=== PATIENT | male | born 1985 | race Asian ===

== ENCOUNTER 2020-04-22 17:14 | Inpatient (IN) | payer OTHER ==
[2020-04-22 21:21] VITALS: BMI 29.8
--- NOTE | 2020-04-22 22:16 | HP ---
COWS - Scale Resting Pulse: 0= [place] 80 or Below Sweatin=Flushed/Facial Moisture Restless Observation: 1= Difficult to Sit Still Pupil Size: 1= Pupils >than Normal Bone or Joint Aches: 2= Severe Diffuse Aches Runny Nose/ Eye Tearin= Nasal Congestion GI Upset > 30mins: 1= Stomach Cramp Tremor Observation: 2= Slight Tremor Visible Yawning Observation: 1= 1-2x During Session Anxiety or Irritability: 4=Extreme Anxiety Goose Flesh Skin: 0=Smooth Skin COWS Score: 15 CIWA Score Nausea/Vomitin Muscle Tremors: 4-Moderate,w/Arms Extend Anxiety: 4-Mod. Anxious/Guarded Agitation: 4-Moderately Restless Paroxysmal Sweats: 2 Orientation: 0-Oriented Tacttile Disturbances: 0-None Auditory Disturbances: 0-None Visual Disturbances: 0-None Headache: 0-None Present CIWA-Ar Total Score: 16 - Admission Criteria OASAS Guidelines: Admission for Medically Managed Detox: Requires at least one of the followin. CIWA greater than 12 2. Seizures within the past 24 hours 3. Delirium tremens within the past 24 hours 4. Hallucinations within the past 24 hours 5. Acute intervention needed for co occurring medical disorder 6. Acute intervention needed for co occurring psychiatric disorder 7. Severe withdrawal that cannot be handled at a lower level of care (continued vomiting, continued diarrhea, abnormal vital signs) requiring intravenous medication and/or fluids 8. Admitting History and Physical - Smoking History Smoking history: Current every day smoker Have you smoked in the past 12 months: Yes Aproximately how many cigarettes per day: 10 Admission ROS [facility] Chief Complaint: Heroin and alcohol withdrawal symptoms Allergies/Adverse Reactions: Allergies Allergy/AdvReac Type Severity Reaction Status Date / Time No Known Allergies Allergy Verified 04/22/20 21:13 History of Present Illness: 34 years old male with 8 years of heroin dependence and 18 years of alcohol dependence is seeking admission to detox. He drinks 1 pint of vodka and 1 six pack beer daily and uses 10 bags of heroin intravenously daily. This is his first admission to [facility], his last detoxification admission was at [facility] and he reports insignificant period of sobriety. He denies medical history and reports Psych. history of PTSD and anxiety. 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 He reports that he overdosed 2 months ago. He is unemployed, lives with his parents and denies any legal issues. Exam Limitations: No Limitations - Ebola screening Have you traveled outside of the country in the last 21 days: No Have you had contact with anyone from an Ebola affected area: No Have you been sick,other than usual withdrawal symptoms: No Do you have a fever: No - Review of Systems Constitutional: Chills, Loss of Appetite, Malaise, Night Sweats EENT: reports: No Symptoms Reported, Nose Congestion Respiratory: reports: No Symptoms reported Cardiac: reports: No Symptoms Reported GI: reports: Nausea, Poor Appetite, Poor Fluid Intake, Abdominal cramping : reports: No Symptoms Reported Musculoskeletal: reports: No Symptoms Reported Integumentary: reports: Dryness, Flushing Neuro: reports: Tremors Endocrine: reports: No Symptoms Reported Hematology: reports: No Symptoms Reported Psychiatric: reports: Mood/Affect Appropiate, Orientated x3, Anxious, Depressed Other Systems: Reviewed and Negative Patient History - Patient Medical History Hx Anemia: No Hx Asthma: No Hx Chronic Obstructive Pulmonary Disease (COPD): No Hx Cancer: No Hx Cardiac Disorders: No Hx Congestive Heart Failure: No Hx Hypertension: No Hx Hypercholesterolemia: No Hx Pacemaker: No HX Cerebrovascular Accident: No Hx Seizures: No Hx Dementia: No Hx Diabetes: No Hx Gastrointestinal Disorders: No Hx Liver Disease: No Hx Genitourinary Disorders: No Hx Sexually Transmitted Disorders: No Hx Renal Disease (ESRD): No Hx Thyroid Disease: No Hx Human Immunodeficiency Virus (HIV): No (Negative 2020) Hx Hepatitis C: No Hx Depression: No Hx Suicide Attempt: No Hx Bipolar Disorder: No Hx Schizophrenia: No Other Medical History: Anxiety , PTSD - Patient Surgical History Past Surgical History: No Anesthesia Reaction: No - PPD History Previous Implant?: Yes Documented Results: Negative w/o proof Implanted On Prior [facility] Admission?: No PPD to be Administered?: Yes - Reproductive History Patient is a Female of Child Bearing Age (11 -55 yrs old): No (Male) - Smoking Cessation Smoking history: Current every day smoker Have you smoked in the past 12 months: Yes Aproximately how many cigarettes per day: 10 Hx Chewing Tobacco Use: No Initiated information on smoking cessation: Yes 'Breaking Loose' booklet given: 04/22/20 - Substance & Tx. History Hx Alcohol Use: Yes Hx Substance Use: Yes Substance Use Type: Alcohol, Heroin, Prescribed (Lexapro, Gabapentin) Hx Substance Use Treatment: Yes ([facility] ) - Substances abused Alcohol Substance route: Oral Frequency: Daily Amount used: LIQUOR- 1 PINT,BEER- 1 SIX PK Age of first use: 16 Date of last use: 04/22/20 Heroin Substance route: Injection Frequency: Daily Amount used: 10 BAGS Age of first use: 26 Date of last use: 04/22/20 Admission Physical Exam [facility] - Vital Signs Vital Signs: Vital Signs - 24 hr 04/22/20 21:16 Temperature 96.8 F L Pulse Rate 64 Respiratory 20 Rate Blood Pressure 129/84 - Physical General Appearance: Yes: Moderate Distress, Tremorous, Sweating, Anxious HEENTM: Yes: Within Normal Limits Respiratory: Yes: Lungs Clear, Normal Breath Sounds, No Respiratory Distress Neck: Yes: Within Normal Limits Breast: Yes: Breast Exam Deferred Cardiology: Yes: Within Normal Limits Abdominal: Yes: Normal Bowel Sounds, Soft Genitourinary: Yes: Within Normal Limits Back: Yes: Normal Inspection Musculoskeletal: Yes: Within Normal Limits Extremities: Yes: Tremors Neurological: Yes: Alert, Motor Strength 5/5, Normal Mood/Affect Integumentary: Yes: Warm Lymphatic: Yes: Within Normal Limits - Diagnostic (1) Opioid dependence with withdrawal Current Visit: Yes Status: Acute (2) Alcohol dependence with withdrawal, uncomplicated Current Visit: Yes Status: Acute (3) Nicotine dependence Current Visit: Yes Status: Chronic Qualifiers: Nicotine product type: cigarettes Substance use status: uncomplicated Qualified Code(s): F17.210 - Nicotine dependence, cigarettes, uncomplicated (4) Anxiety Current Visit: Yes Status: Chronic Cleared for Admission [facility] - Detox or Rehab [facility] Level of Care: Medically Managed Detox Regimen/Protocol: Methadone/Librium Claeared for Rehab Admission: No Urine Drug Screen - Test Device Lot number: [id number] Expiration date: 06/24/21 - Control Is test valid?: Yes - Results Drug screen NEGATIVE: No Urine drug screen results: FEN-Fentanyl, BZO-Benzodiazepines Inpatient Rehab Admission - Rehab Decision to Admit Inpatient rehab admission?: No
[2020-04-22] MEDS ORDERED: IBUPROFEN 400 MG TABLET (FP) PO PRN (22:33)
[2020-04-22] MEDS ORDERED: chlordiazePOXIDE HCL 25 MG CAPSULE PO PRN (22:33)
[2020-04-22] MEDS ORDERED: cloNIDine HCL 0.1 MG TABLET PO PRN (22:33)
[2020-04-22] MEDS ORDERED: BISMUTH SUBSALICYLATE 524 MG/30 ML UD PO PRN (22:33)
[2020-04-22] MEDS ORDERED: ACETAMINOPHEN 325 MG TABLET (FP) PO PRN ×2 (22:33)
[2020-04-22] MEDS ORDERED: MAG HYDROX/AL HYDROX/SIMETH 30 ML UNIT-DOSE CUP PO PRN (22:33)
[2020-04-22] MEDS ORDERED: ONDANSETRON *ODT* 4 MG TABLET SL ONE (22:33)
[2020-04-22] MEDS ORDERED: NICOTINE POLACRILEX 2 MG GUM BUC PRN (22:33)
[2020-04-22] MEDS ORDERED: MENTHOL/PHENOL 1 EACH UD MM PRN (22:33)
[2020-04-22] MEDS ORDERED: MAGNESIUM CITRATE 300 ML BOTTLE PO PRN (22:33)
[2020-04-22] MEDS ORDERED: MAGNESIUM HYDROX 2400MG/30ML ORAL SUSPENSION 30 ML CUP PO PRN (22:33)
[2020-04-22] MEDS ORDERED: METHADONE HCL 10 MG TABLET (FOR DETOX USE ONLY) PO ONE (23:00)
[2020-04-22] MEDS ORDERED: TUBERCULIN PPD 5 TU/0.1ML VIAL ID ONE (23:09)
[2020-04-22] MEDS: hydrOXYzine PAMOATE 25 MG CAPSULE (FP) PO PRN (23:28)
[2020-04-22] MEDS: chlordiazePOXIDE HCL 25 MG CAPSULE PO SCH (23:29)
[2020-04-23] MEDS: chlordiazePOXIDE HCL 25 MG CAPSULE PO SCH ×4 (06:34→22:00)
[2020-04-23] MEDS ORDERED: METHADONE (DETOX) 20 MG, METHADONE (DETOX) 5 MG PO ONE (10:00)
--- NOTE | 2020-04-23 10:08 | PN ---
S CIWA - CIWA Score Nausea/Vomitin-No Nausea/No Vomiting Muscle Tremors: 2 Anxiety: 4-Mod. Anxious/Guarded Agitation: 3 Paroxysmal Sweats: No Perspiration Orientation: 0-Oriented Tacttile Disturbances: 0-None Auditory Disturbances: 0-None Visual Disturbances: 0-None Headache: 0-None Present CIWA-Ar Total Score: 9 [facility] COWS - Scale Resting Pulse: 0= [place] 80 or Below BHS Progress Note (SOAP) Subjective: ## y/o male admitted to detox for Heroin/alcohol withdrawal sx. On Meth apolinar regimen. Reports lessened withdrawal sx with detox medications at time of rounds this morning. Objective: 04/23/20 11:26 Vital Signs - 24 hr 04/22/20 04/22/20 04/23/20 21:16 23:30 03:30 Temperature 96.8 F L 97.1 F L Pulse Rate 64 57 L Respiratory 20 18 16 Rate Blood Pressure 129/84 125/75 O2 Sat by Pulse 97 Oximetry (%) 04/23/20 04/23/20 04/23/20 05:26 09:50 10:07 Temperature 98.2 F 98.3 F Pulse Rate 60 64 Respiratory 18 18 Rate Blood Pressure 93/55 L 110/70 O2 Sat by Pulse 96 98 Oximetry (%) Laboratory Tests 04/23/20 08:15 WBC 5.3 RBC 4.72 Hgb 13.8 Hct 41.1 MCV 87.2 MCH 29.3 MCHC 33.6 RDW 13.6 Plt Count 294 MPV 7.8 other labs pending Assessment: 04/23/20 11:27 withdrawal sx Alert o x 3 nad oob ambulating with steady gait Plan: cont detox increase po fluids maintain safety
--- NOTE | 2020-04-23 10:13 | EKG ---
Test Reason : Blood Pressure : / mmHG Vent. Rate : 051 BPM Atrial Rate : 051 BPM P-R Int : 164 ms QRS Dur : 094 ms QT Int : 418 ms P-R-T Axes : 030 031 014 degrees QTc Int : 385 ms SINUS BRADYCARDIA OTHERWISE NORMAL ECG NO PREVIOUS ECGS AVAILABLE Confirmed by Giuseppe Valencia MD ([id number]) on 04/23/2020 10:13:43 AM Referred By: Confirmed By:Giuseppe Valencia MD
[2020-04-23] MEDS: PRENATAL VITAMINS W/ FOLIC ACID TABLET (FP) PO SCH (10:14)
[2020-04-23] MEDS ORDERED: METHADONE HCL 10 MG TABLET (FOR DETOX USE ONLY) ONE (10:15)
[2020-04-23] MEDS ORDERED: METHADONE HCL 5 MG TABLET (FOR DETOX USE ONLY) ONE (10:16)
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
[2020-04-23] MEDS: NICOTINE 14 MG/24 HOURS TOPICAL PATCH TD SCH (10:17)
[2020-04-23] MEDS: hydrOXYzine PAMOATE 25 MG CAPSULE (FP) PO PRN ×3 (10:17→21:59)
[2020-04-23 11:24] LABS: HEMATOCRIT 41.1 % (35.4-49); HEMOGLOBIN 13.8 GM/dL (11.7-16.9); MCH 29.3 pg (25.7-33.7); MCHC 33.6 g/dl (32.0-35.9); MEAN CELL VOLUME 87.2 fl (80-96); MEAN PLT VOLUME 7.8 fl (7.5-11.1); PLATELET COUNT 294 K/MM3 (134-434); RBC 4.72 M/mm3 (4.00-5.60); RDW 13.6 % (11.9-15.9); WHITE BLOOD COUNT 5.3 K/mm3 (4.0-10.0)
[2020-04-23 11:27] LABS: ALBUMIN 3.4 g/dl (3.4-5.0); BILIRUBIN,TOTAL 0.3 mg/dL (0.2-1); BLOOD UREA NITROGEN 18.4 mg/dL (7-18); CALCIUM 8.8 mg/dL (8.5-10.1); POTASSIUM 4.1 mmol/L (3.5-5.1); TOT PROT 6.8 g/dl (6.4-8.2)
--- NOTE | 2020-04-23 11:29 | PN ---
BHS COWS - Scale Resting Pulse: 0= [place] 80 or Below Sweatin= Chills/Flushing Restless Observation: 0= Sits Still Pupil Size: 0= Normal to Room Light Bone or Joint Aches: 1= Mild Discomfort Runny Nose/ Eye Tearin= None GI Upset > 30mins: 0= None Tremor Observation of Outstretched Hands: 1= Tremor [place], Not Seen Yawning Observation: 0= None Anxiety or Irritability: 1=Feels Anxious/Irritable Goose Flesh Skin: 0=Smooth Skin COWS Score: 4
[2020-04-23] MEDS: ESCITALOPRAM OXALATE 20 MG TABLET PO SCH (11:57)
[2020-04-23] MEDS: GABAPENTIN 300 MG CAPSULE PO SCH ×2 (13:00→21:59)
[2020-04-23] MEDS: THIAMINE HCL 100 MG TABLET (FP) PO SCH (21:59)
[2020-04-23] MEDS: MELATONIN 5 MG TABLETS PO SCH (22:00)
[2020-04-24] MEDS: GABAPENTIN 300 MG CAPSULE PO SCH ×3 (06:06→22:05)
[2020-04-24] MEDS: chlordiazePOXIDE HCL 25 MG CAPSULE PO SCH ×4 (06:06→22:06)
[2020-04-24] MEDS ORDERED: METHADONE HCL 10 MG TABLET (FOR DETOX USE ONLY) PO ONE (10:00)
[2020-04-24] MEDS: PRENATAL VITAMINS W/ FOLIC ACID TABLET (FP) PO SCH (10:11)
[2020-04-24] MEDS: NICOTINE 14 MG/24 HOURS TOPICAL PATCH TD SCH (10:11)
[2020-04-24] MEDS: ESCITALOPRAM OXALATE 20 MG TABLET PO SCH (10:11)
[2020-04-24] MEDS: hydrOXYzine PAMOATE 25 MG CAPSULE (FP) PO PRN ×3 (10:14→17:57)
--- NOTE | 2020-04-24 11:29 | PN ---
[facility] CIWA - CIWA Score Nausea/Vomitin-No Nausea/No Vomiting Muscle Tremors: 3 Anxiety: 4-Mod. Anxious/Guarded Agitation: 3 Paroxysmal Sweats: 1-Minimal Palms Moist Orientation: 0-Oriented Tacttile Disturbances: 0-None Auditory Disturbances: 0-None Visual Disturbances: 0-None Headache: 0-None Present CIWA-Ar Total Score: 11 S COWS - Scale Resting Pulse: 0= [place] 80 or Below Sweatin= Chills/Flushing Restless Observation: 0= Sits Still Pupil Size: 0= Normal to Room Light Bone or Joint Aches: 1= Mild Discomfort Runny Nose/ Eye Tearin= None GI Upset > 30mins: 0= None Tremor Observation of Outstretched Hands: 0= None Yawning Observation: 0= None Anxiety or Irritability: 0= None Goose Flesh Skin: 0=Smooth Skin COWS Score: 2 S Progress Note (SOAP) Subjective: c/o slight anxiety hot/cold flashes Objective: 04/24/20 11:27 Vital Signs - 24 hr 04/23/20 04/23/20 04/23/20 12:44 16:50 20:39 Temperature 98.0 F 97.1 F L 98.2 F Pulse Rate 61 50 L 55 L Respiratory 18 18 18 Rate Blood Pressure 104/61 94/69 113/69 O2 Sat by Pulse 95 96 Oximetry (%) 04/24/20 04/24/20 04/24/20 00:30 01:13 03:30 Temperature Pulse Rate Respiratory 18 18 18 Rate Blood Pressure O2 Sat by Pulse Oximetry (%) 04/24/20 04/24/20 06:01 09:25 Temperature 98.2 F 98.2 F Pulse Rate 58 L 71 Respiratory 18 18 Rate Blood Pressure 116/74 113/64 O2 Sat by Pulse 97 96 Oximetry (%) Laboratory Tests 04/23/20 04/23/20 04/23/20 08:15 08:15 08:15 WBC 5.3 RBC 4.72 Hgb 13.8 Hct 41.1 MCV 87.2 MCH 29.3 MCHC 33.6 RDW 13.6 Plt Count 294 MPV 7.8 Sodium 139 Potassium 4.1 Chloride 103 Carbon Dioxide 30 Anion Gap 6 L BUN 18.4 H Creatinine 1.0 Est GFR (CKD-EPI)AfAm 114.11 Est GFR (CKD-EPI)NonAf 98.45 Random Glucose 100 Calcium 8.8 Total Bilirubin 0.3 AST 15 ALT 19 Alkaline Phosphatase 56 Total Protein 6.8 Albumin 3.4 Syphilis Serology Non-reactive Alert o x 3 nad oob ambulating with steady gait covid-19 result pending 04/24/20 11:28 Assessment: 04/24/20 11:28 withdrawal sx Plan: cont detox increase po fluids maintain safety
[2020-04-24 17:06] LABS: PH,URINE 5.5 (5.0-8.0); URINE APPEARANCE CLEAR; URINE BILIRUBIN NEGATIVE (NEGATIVE); URINE COLOR YELLOW; URINE GLUCOSE (UA) NEGATIVE (NEGATIVE); URINE KETONE NEGATIVE (NEGATIVE); URINE LEUK ESTERASE NEGATIVE (NEGATIVE); URINE NITRITE NEGATIVE (NEGATIVE); URINE PROTEIN NEGATIVE (NEGATIVE); URINE UROBILINOGEN 0.2 mg/dL (0.2-1.0)
[2020-04-24] MEDS: THIAMINE HCL 100 MG TABLET (FP) PO SCH (22:05)
[2020-04-24] MEDS: MELATONIN 5 MG TABLETS PO SCH (22:06)
[2020-04-25] MEDS ORDERED: chlordiazePOXIDE HCL 10 MG CAPSULE PO PRN
[2020-04-25] MEDS: chlordiazePOXIDE HCL 10 MG CAPSULE PO SCH ×4 (06:03→22:33)
[2020-04-25] MEDS: GABAPENTIN 300 MG CAPSULE PO SCH ×3 (06:03→22:33)
[2020-04-25] MEDS: hydrOXYzine PAMOATE 25 MG CAPSULE (FP) PO PRN ×4 (06:06→22:32)
[2020-04-25] MEDS ORDERED: METHADONE HCL 5 MG TABLET (FOR DETOX USE ONLY) ONE (08:50)
[2020-04-25] MEDS ORDERED: METHADONE HCL 10 MG TABLET (FOR DETOX USE ONLY) ONE (08:50)
[2020-04-25] MEDS ORDERED: METHADONE (DETOX) 10 MG, METHADONE (DETOX) 5 MG PO ONE (10:00)
[2020-04-25] MEDS: PRENATAL VITAMINS W/ FOLIC ACID TABLET (FP) PO SCH (10:05)
[2020-04-25] MEDS: ESCITALOPRAM OXALATE 20 MG TABLET PO SCH (10:05)
[2020-04-25] MEDS: NICOTINE 14 MG/24 HOURS TOPICAL PATCH TD SCH (10:07)
--- NOTE | 2020-04-25 10:48 | PN ---
[facility] CIWA - CIWA Score Nausea/Vomitin-No Nausea/No Vomiting Muscle Tremors: 2 Anxiety: 5 Agitation: 3 Paroxysmal Sweats: 1-Minimal Palms Moist Orientation: 0-Oriented Tacttile Disturbances: 0-None Auditory Disturbances: 0-None Visual Disturbances: 0-None Headache: 0-None Present CIWA-Ar Total Score: 11 BHS COWS - Scale Resting Pulse: 0= [place] 80 or Below Sweatin= No chills or Flushing Restless Observation: 3= Extraneous Movement Pupil Size: 0= Normal to Room Light Bone or Joint Aches: 1= Mild Discomfort Runny Nose/ Eye Tearin= None GI Upset > 30mins: 0= None Tremor Observation of Outstretched Hands: 1= Tremor [place], Not Seen Yawning Observation: 0= None Anxiety or Irritability: 1=Feels Anxious/Irritable Goose Flesh Skin: 0=Smooth Skin COWS Score: 6 BHS Progress Note (SOAP) Subjective: Anxiety sweats Pt expressed interest in Vivitrol injection MAT. Pt reports he was given Rx for Naltrexone po at his clinic-[facility] on [id number] [place] [address], but "did not take it yet because was afraid of bad reaction from it". Pt states his clinic wants him to start it here then they will continue treatment. Discussed with pt that if he ends up staying in [place] then he can see a counselor to contact his referral program and a a provider to work him up for Vivitrol initiation if medically eligible. Objective: 04/25/20 10:53 Vital Signs 04/25/20 06:32 Temperature 98.0 F Pulse Rate 67 Respiratory 18 Rate Blood Pressure 94/60 O2 Sat by Pulse 95 Oximetry (%) Laboratory Tests 04/22/20 04/23/20 04/23/20 08:30 08:15 08:15 WBC 5.3 RBC 4.72 Hgb 13.8 Hct 41.1 MCV 87.2 MCH 29.3 MCHC 33.6 RDW 13.6 Plt Count 294 MPV 7.8 Sodium Potassium Chloride Carbon Dioxide Anion Gap BUN Creatinine Est GFR (CKD-EPI)AfAm Est GFR (CKD-EPI)NonAf Random Glucose Calcium Total Bilirubin AST ALT Alkaline Phosphatase Total Protein Albumin Urine Color Urine Appearance Urine pH Ur Specific [place] Urine Protein Urine Glucose (UA) Urine Ketones Urine Blood Urine Nitrite Urine Bilirubin Urine Urobilinogen Ur Leukocyte Esterase Syphilis Serology Non-reactive COVID-19 (DEVIN) Not detected 04/23/20 04/24/20 08:15 14:15 WBC RBC Hgb Hct MCV MCH MCHC RDW Plt Count MPV Sodium 139 Potassium 4.1 Chloride 103 Carbon Dioxide 30 Anion Gap 6 L BUN 18.4 H Creatinine 1.0 Est GFR (CKD-EPI)AfAm 114.11 Est GFR (CKD-EPI)NonAf 98.45 Random Glucose 100 Calcium 8.8 Total Bilirubin 0.3 AST 15 ALT 19 Alkaline Phosphatase 56 Total Protein 6.8 Albumin 3.4 Urine Color Yellow Urine Appearance Clear Urine pH 5.5 Ur Specific [place] 1.022 Urine Protein Negative Urine Glucose (UA) Negative Urine Ketones Negative Urine Blood Negative Urine Nitrite Negative Urine Bilirubin Negative Urine Urobilinogen 0.2 Ur Leukocyte Esterase Negative Syphilis Serology COVID-19 (DEVIN) labs noted covid-19 not detected Alert o x 3 nad oob ambulating with steady gait Assessment: 04/25/20 10:54 withdrawal sx Plan: cont detox increase po fluids maintain safety d/w pt as above. Pt is agreeable to poc.
[2020-04-25] MEDS: THIAMINE HCL 100 MG TABLET (FP) PO SCH (22:32)
[2020-04-25] MEDS: MELATONIN 5 MG TABLETS PO SCH (22:32)
[2020-04-25] MEDS: METHOCARBAMOL 500 MG TABLET PO PRN (22:32)
[2020-04-26] MEDS: chlordiazePOXIDE HCL 10 MG CAPSULE PO SCH ×2 (05:38→18:51)
[2020-04-26] MEDS: GABAPENTIN 300 MG CAPSULE PO SCH ×3 (05:39→22:43)
[2020-04-26] MEDS ORDERED: METHADONE HCL 10 MG TABLET (FOR DETOX USE ONLY) PO ONE (10:00)
[2020-04-26] MEDS: NICOTINE 14 MG/24 HOURS TOPICAL PATCH TD SCH (10:09)
[2020-04-26] MEDS: hydrOXYzine PAMOATE 25 MG CAPSULE (FP) PO PRN ×4 (10:09→22:43)
[2020-04-26] MEDS: ESCITALOPRAM OXALATE 20 MG TABLET PO SCH (10:10)
[2020-04-26] MEDS: PRENATAL VITAMINS W/ FOLIC ACID TABLET (FP) PO SCH (10:10)
--- NOTE | 2020-04-26 14:48 | PN ---
[facility] CIWA - CIWA Score Nausea/Vomitin-No Nausea/No Vomiting Muscle Tremors: None Anxiety: 3 Agitation: 0-Normal Activity Paroxysmal Sweats: 1-Minimal Palms Moist Orientation: 0-Oriented Tacttile Disturbances: 0-None Auditory Disturbances: 0-None Visual Disturbances: 0-None Headache: 0-None Present CIWA-Ar Total Score: 4 S COWS - Scale Resting Pulse: 0= [place] 80 or Below Sweatin= No chills or Flushing Restless Observation: 0= Sits Still Pupil Size: 0= Normal to Room Light Bone or Joint Aches: 0= None Runny Nose/ Eye Tearin= None GI Upset > 30mins: 0= None Tremor Observation of Outstretched Hands: 1= Tremor [place], Not Seen Yawning Observation: 0= None Anxiety or Irritability: 1=Feels Anxious/Irritable Goose Flesh Skin: 0=Smooth Skin COWS Score: 2 [facility] Progress Note (SOAP) Subjective: Pt reports better today and anticipating to go to rehab tomorrow after detox. Slight anxiety Objective: 04/26/20 14:46 Vital Signs - 8 hr 04/26/20 08:30 Temperature 97.5 F L Pulse Rate 73 Respiratory 18 Rate Blood Pressure 105/69 Laboratory Tests 04/22/20 04/23/20 04/23/20 08:30 08:15 08:15 WBC 5.3 RBC 4.72 Hgb 13.8 Hct 41.1 MCV 87.2 MCH 29.3 MCHC 33.6 RDW 13.6 Plt Count 294 MPV 7.8 Sodium Potassium Chloride Carbon Dioxide Anion Gap BUN Creatinine Est GFR (CKD-EPI)AfAm Est GFR (CKD-EPI)NonAf Random Glucose Calcium Total Bilirubin AST ALT Alkaline Phosphatase Total Protein Albumin Urine Color Urine Appearance Urine pH Ur Specific [place] Urine Protein Urine Glucose (UA) Urine Ketones Urine Blood Urine Nitrite Urine Bilirubin Urine Urobilinogen Ur Leukocyte Esterase Syphilis Serology Non-reactive COVID-19 (DEVIN) Not detected 04/23/20 04/24/20 08:15 14:15 WBC RBC Hgb Hct MCV MCH MCHC RDW Plt Count MPV Sodium 139 Potassium 4.1 Chloride 103 Carbon Dioxide 30 Anion Gap 6 L BUN 18.4 H Creatinine 1.0 Est GFR (CKD-EPI)AfAm 114.11 Est GFR (CKD-EPI)NonAf 98.45 Random Glucose 100 Calcium 8.8 Total Bilirubin 0.3 AST 15 ALT 19 Alkaline Phosphatase 56 Total Protein 6.8 Albumin 3.4 Urine Color Yellow Urine Appearance Clear Urine pH 5.5 Ur Specific [place] 1.022 Urine Protein Negative Urine Glucose (UA) Negative Urine Ketones Negative Urine Blood Negative Urine Nitrite Negative Urine Bilirubin Negative Urine Urobilinogen 0.2 Ur Leukocyte Esterase Negative Syphilis Serology COVID-19 (DEVIN) Assessment: 04/26/20 14:46 withdrawals sx Plan: cont detox increase po fluids maintain safety pt requesting vivitrol-MAT Encouraged pt to follow up with vivitrol-MAT plan when he goes into rehab.
[2020-04-26] MEDS: MELATONIN 5 MG TABLETS PO SCH (22:42)
[2020-04-26] MEDS: METHOCARBAMOL 500 MG TABLET PO PRN (22:43)
[2020-04-26] MEDS: THIAMINE HCL 100 MG TABLET (FP) PO SCH (22:43)
[2020-04-27] MEDS ORDERED: chlordiazePOXIDE HCL 10 MG CAPSULE PO ONE (05:00)
[2020-04-27] MEDS ORDERED: METHADONE HCL 5 MG TABLET (FOR DETOX USE ONLY) PO ONE (06:00)
[2020-04-27] MEDS: GABAPENTIN 300 MG CAPSULE PO SCH (06:41)
[2020-04-27] MEDS: hydrOXYzine PAMOATE 25 MG CAPSULE (FP) PO PRN ×2 (06:41→11:08)
[2020-04-27] MEDS: METHOCARBAMOL 500 MG TABLET PO PRN (06:42)
[2020-04-27 09:09] VITALS: BP 110/65; PULSE 70; TEMP 98.4
[2020-04-27] MEDS: ESCITALOPRAM OXALATE 20 MG TABLET PO SCH (10:01)
[2020-04-27] MEDS: PRENATAL VITAMINS W/ FOLIC ACID TABLET (FP) PO SCH (10:01)
[2020-04-27] MEDS: NICOTINE 14 MG/24 HOURS TOPICAL PATCH TD SCH (10:01)
--- NOTE | 2020-04-27 13:23 | DS ---
[facility] Detox Discharge Summary Admission Date: 04/22/20 Discharge Date: 04/27/20 - History Present History: Alcohol Dependence, Opioid Dependence Additional Comments: Patient going to [facility] ([facility] for aftercare. Patient A & O X 3, observed ambulating on Detox Unit unassisted prior to time of discharge. Patient denied current withdrawal / detox symptoms when assessed prior to time of Discharge from Detox Unit. Patient was discharged from Detox Unit to be taken over to Rehab Unit in stable medical condition. Pertinent Past History: Nicotine Dependence, Anxiety, PTSD. - Physical Exam Results Vital Signs: Vital Signs Temperature 98.4 F 04/27/20 08:35 Pulse Rate 70 04/27/20 08:35 Respiratory Rate 18 04/27/20 08:35 Blood Pressure 110/65 04/27/20 08:35 O2 Sat by Pulse Oximetry (%) 96 04/26/20 20:19 Pertinent Admission Physical Exam Findings: WITHDRAWAL SYMPTOMS. Laboratory Tests 04/22/20 04/23/20 04/23/20 08:30 08:15 08:15 WBC 5.3 RBC 4.72 Hgb 13.8 Hct 41.1 MCV 87.2 MCH 29.3 MCHC 33.6 RDW 13.6 Plt Count 294 MPV 7.8 Sodium Potassium Chloride Carbon Dioxide Anion Gap BUN Creatinine Est GFR (CKD-EPI)AfAm Est GFR (CKD-EPI)NonAf Random Glucose Calcium Total Bilirubin AST ALT Alkaline Phosphatase Total Protein Albumin Urine Color Urine Appearance Urine pH Ur Specific [place] Urine Protein Urine Glucose (UA) Urine Ketones Urine Blood Urine Nitrite Urine Bilirubin Urine Urobilinogen Ur Leukocyte Esterase Syphilis Serology Non-reactive COVID-19 (DEVIN) Not detected 04/23/20 04/24/20 08:15 14:15 WBC RBC Hgb Hct MCV MCH MCHC RDW Plt Count MPV Sodium 139 Potassium 4.1 Chloride 103 Carbon Dioxide 30 Anion Gap 6 L BUN 18.4 H Creatinine 1.0 Est GFR (CKD-EPI)AfAm 114.11 Est GFR (CKD-EPI)NonAf 98.45 Random Glucose 100 Calcium 8.8 Total Bilirubin 0.3 AST 15 ALT 19 Alkaline Phosphatase 56 Total Protein 6.8 Albumin 3.4 Urine Color Yellow Urine Appearance Clear Urine pH 5.5 Ur Specific [place] 1.022 Urine Protein Negative Urine Glucose (UA) Negative Urine Ketones Negative Urine Blood Negative Urine Nitrite Negative Urine Bilirubin Negative Urine Urobilinogen 0.2 Ur Leukocyte Esterase Negative Syphilis Serology COVID-19 (DEVIN) Lab Results noted. - Treatment Hospital Course: Detox Protocol Followed, Detoxed Safely, Responded well, Discharged Condition Good, Rehab Referral Accepted Patient has Accepted a Rehab Referral to: [facility] ([place], [place]). - Medication Discharge Medications: Ambulatory Orders Escitalopram Oxalate [Lexapro -] 20 mg PO DAILY 04/22/20 Gabapentin [Gralise] 600 mg PO BID 04/22/20 - Diagnosis (1) Alcohol dependence with withdrawal, uncomplicated Status: Acute (2) Opioid dependence with withdrawal Status: Acute (3) Nicotine dependence Status: Chronic Qualifiers: Nicotine product type: cigarettes Substance use status: uncomplicated Qualified Code(s): F17.210 - Nicotine dependence, cigarettes, uncomplicated (4) Substance-induced anxiety disorder Status: Acute (5) Anxiety Status: Chronic (6) PTSD (post-traumatic stress disorder) Status: Chronic - AMA Did Patient Leave Against Medical Advice: No
== END 2020-04-27 12:44 | disposition other institution (70) | DRG 773 ==
LOC: YASAS 17:14 → Y5N DETOX 22:38
PROVIDERS: ADMIT Allergy & Immunology; ATTEND Allergy & Immunology
PROC: HZ2ZZZZ Detoxification Services for Substance Abuse Treatment (ICD-10-PCS; principal; 2020-04-22)
DX: F10.230 Alcohol dependence with withdrawal, uncomplicated (principal); F11.23 Opioid dependence with withdrawal; F17.210 Nicotine dependence, cigarettes, uncomplicated; F19.280 Other psychoactive substance dependence with psychoactive substance-induced anxiety disorder; F41.9 Anxiety disorder, unspecified; F43.10 Post-traumatic stress disorder, unspecified; Z62.810 Personal history of physical and sexual abuse in childhood; Z56.0 Unemployment, unspecified
CPT/HCPCS: 36415; 80053; 81003; 85027; 86780; 93005; 93010; U0003

== ENCOUNTER 2020-04-27 12:57 | Inpatient (IN) | payer OTHER ==
[2020-04-27] MEDS ORDERED: LOPERAMIDE HCL 2 MG CAPSULE PO PRN (13:25)
[2020-04-27] MEDS ORDERED: MAGNESIUM HYDROX 2400MG/30ML ORAL SUSPENSION 30 ML CUP PO PRN (13:25)
[2020-04-27] MEDS ORDERED: guaiFENesin 200 MG/10 ML 10 ML UNIT-DOSE CUPS PO PRN (13:25)
[2020-04-27] MEDS ORDERED: ACETAMINOPHEN 325 MG TABLET (FP) PO PRN (13:25)
[2020-04-27] MEDS ORDERED: MAG HYDROX/AL HYDROX/SIMETH 30 ML UNIT-DOSE CUP PO PRN (13:25)
[2020-04-27] MEDS ORDERED: MENTHOL/PHENOL 1 EACH UD MM PRN (13:25)
[2020-04-27] MEDS ORDERED: MAGNESIUM CITRATE 300 ML BOTTLE PO PRN (13:25)
[2020-04-27] MEDS ORDERED: P-EPHED 60MG/TRIPROLIDI 2.5MG TABLET PO PRN (13:25)
--- NOTE | 2020-04-27 13:28 | HP ---
[facility] Re[facility] Assess/Revision - Admission History Admitted to Rehab from: [facility] ([facility]) Date of Admission to Rehab: 04/27/2020 - Vital signs Vital Signs: Vital Signs Period Temp Pulse Resp BP Sys/Bruner Pulse Ox Last 24 Hr 97.7 F 70 18 112/65 - Findings Detox History & Physical reviewed: Yes Concur with findings: Yes Comments/Additional Findings: Patient's Medical / Medication History reviewed prior to Discharge from Detox Unit. Patient was Discharged from Detox unit to be taken over to Rehab unit in stable medical condition. Inpatient Rehab Admission - Rehab Decision to Admit Inpatient rehab admission?: Yes - Initial Determination Are CD services needed?: Yes Free of communicable disease: Yes Not in need of hospitalization: Yes - Rehab Admission Criteria Previous failed treatment: Yes Poor recovery environment: Yes Comorbidities: Yes Lacks judgement: No Patient is meeting Inpatient Rehab admission criteria:: Yes
--- NOTE | 2020-04-27 14:36 | PN ---
[facility] Progress Note Note: Psychiatry Attending's note : Case discussed, via telephone, with medical [employer] August Le. Reason : continuity of medications (lexapro + gabapentin). Mr Zhu has just completed detoxification at [facility]. Now admitted to [address] for rehabilitation services. Chart reviewed. Consult note of 04/23/20 by psychiatric security nurse August Lewis : appreciated. Medications checked. Confirmed. Reconciled and resumed as per orders. Lexapro 20 mg po daily Gabapentin 600 mg po tid Informed consent granted on admission. No need for acute psychiatric intervention.
[2020-04-27] MEDS: METHOCARBAMOL 500 MG TABLET PO PRN ×2 (15:42→21:43)
[2020-04-27] MEDS: hydrOXYzine PAMOATE 25 MG CAPSULE (FP) PO SCH ×3 (15:46→21:40)
[2020-04-27] MEDS: THIAMINE HCL 100 MG TABLET (FP) PO SCH (21:39)
[2020-04-27] MEDS: GABAPENTIN 300 MG CAPSULE PO SCH (21:41)
[2020-04-27] MEDS: MELATONIN 5 MG TABLETS PO SCH (21:42)
[2020-04-28] MEDS: GABAPENTIN 300 MG CAPSULE PO SCH ×3 (06:11→22:09)
[2020-04-28] MEDS: hydrOXYzine PAMOATE 25 MG CAPSULE (FP) PO SCH ×5 (06:11→22:09)
[2020-04-28] MEDS: PRENATAL VITAMINS W/ FOLIC ACID TABLET (FP) PO SCH (10:00)
[2020-04-28] MEDS: NICOTINE 14 MG/24 HOURS TOPICAL PATCH TD SCH (10:00)
[2020-04-28] MEDS: METHOCARBAMOL 500 MG TABLET PO PRN ×2 (10:00→22:10)
[2020-04-28] MEDS: ESCITALOPRAM OXALATE 20 MG TABLET PO SCH (10:00)
[2020-04-28] MEDS: NICOTINE POLACRILEX 2 MG GUM BUC PRN (10:01)
[2020-04-28] MEDS: THIAMINE HCL 100 MG TABLET (FP) PO SCH (22:09)
[2020-04-28] MEDS: MELATONIN 5 MG TABLETS PO SCH (22:09)
[2020-04-28] MEDS ORDERED: PT OWN MED DRAWER 7, Y5N ONE (22:39)
[2020-04-29] MEDS: NICOTINE POLACRILEX 2 MG GUM BUC PRN ×4 (04:00→14:55)
[2020-04-29] MEDS: GABAPENTIN 300 MG CAPSULE PO SCH ×3 (06:16→21:18)
[2020-04-29] MEDS: hydrOXYzine PAMOATE 25 MG CAPSULE (FP) PO SCH ×5 (06:16→21:18)
[2020-04-29] MEDS: NICOTINE 14 MG/24 HOURS TOPICAL PATCH TD SCH (09:40)
[2020-04-29] MEDS: PRENATAL VITAMINS W/ FOLIC ACID TABLET (FP) PO SCH (09:40)
[2020-04-29] MEDS: ESCITALOPRAM OXALATE 20 MG TABLET PO SCH (09:40)
[2020-04-29] MEDS: METHOCARBAMOL 500 MG TABLET PO PRN ×3 (09:41→21:19)
--- NOTE | 2020-04-29 11:15 | PN ---
[facility] Progress Note Note: PATIENT INFORMED GUIDANCE SECRETARY HE IS INTERESTED IN POSSIBLE VIVITROL TREATMENT. PATIENT REFERRED TO COUNSELOR TO DISCUSS OTP PLACEMENT. ADMITTED TO REHAB 04/27/2020 FOR ETOH/OPIOD USE DISORDER. WILL NEED TO COMPLETE 7-10 DAY WASH OUT PERIOD OF OPIATES PRIOR TREATMENT. COUNSELOR ADVISED, ONCE PATIENT CONNECTED TO PROGRAM TO HAVE PATIENT FOLLOW UP WITH PROVIDER. Vital Signs Temperature 97.5 F L 04/29/20 06:50 Pulse Rate 60 04/29/20 06:50 Respiratory Rate 16 04/29/20 06:50 Blood Pressure 101/56 L 04/29/20 06:50 O2 Sat by Pulse Oximetry (%) 97 04/29/20 06:50
--- NOTE | 2020-04-29 14:06 | PN ---
[facility] Progress Note Note: FYI:Pt expressed interest in Vivitrol injection MAT. Pt reports he was given Rx for Naltrexone po at his clinic-[facility] on [address] [place], [place], but "did not take it yet because was afraid of bad reaction from it". Pt states his clinic wants him to start it here then they will continue treatment. Discussed with pt that if he ends up staying in [place] then he can see a counselor to contact his referral program and a a provider to work him up for Vivitrol initiation if medically eligible. O
[2020-04-29] MEDS: MELATONIN 5 MG TABLETS PO SCH (21:18)
[2020-04-29] MEDS: THIAMINE HCL 100 MG TABLET (FP) PO SCH (21:18)
[2020-04-30] MEDS: GABAPENTIN 300 MG CAPSULE PO SCH ×3 (06:33→21:07)
[2020-04-30] MEDS: hydrOXYzine PAMOATE 25 MG CAPSULE (FP) PO SCH ×5 (06:33→21:08)
[2020-04-30] MEDS: NICOTINE POLACRILEX 2 MG GUM BUC PRN ×2 (06:34→12:36)
[2020-04-30] MEDS: NICOTINE 14 MG/24 HOURS TOPICAL PATCH TD SCH (10:17)
[2020-04-30] MEDS: PRENATAL VITAMINS W/ FOLIC ACID TABLET (FP) PO SCH (10:17)
[2020-04-30] MEDS: ESCITALOPRAM OXALATE 20 MG TABLET PO SCH (10:17)
[2020-04-30] MEDS: METHOCARBAMOL 500 MG TABLET PO PRN ×2 (10:18→13:59)
[2020-04-30] MEDS: MELATONIN 5 MG TABLETS PO SCH (21:07)
[2020-04-30] MEDS: THIAMINE HCL 100 MG TABLET (FP) PO SCH (21:07)
[2020-04-30] MEDS: IBUPROFEN 400 MG TABLET (FP) PO PRN (22:50)
[2020-05-01] MEDS: hydrOXYzine PAMOATE 25 MG CAPSULE (FP) PO SCH ×5 (06:38→21:23)
[2020-05-01] MEDS: GABAPENTIN 300 MG CAPSULE PO SCH ×3 (06:38→21:22)
[2020-05-01] MEDS: ESCITALOPRAM OXALATE 20 MG TABLET PO SCH (10:01)
[2020-05-01] MEDS: PRENATAL VITAMINS W/ FOLIC ACID TABLET (FP) PO SCH (10:01)
[2020-05-01] MEDS: NICOTINE POLACRILEX 2 MG GUM BUC PRN (10:02)
[2020-05-01] MEDS: NICOTINE 14 MG/24 HOURS TOPICAL PATCH TD SCH (10:02)
[2020-05-01] MEDS: IBUPROFEN 400 MG TABLET (FP) PO PRN (10:02)
[2020-05-01] MEDS: MELATONIN 5 MG TABLETS PO SCH (21:22)
[2020-05-01] MEDS: THIAMINE HCL 100 MG TABLET (FP) PO SCH (21:22)
[2020-05-02] MEDS: GABAPENTIN 300 MG CAPSULE PO SCH ×3 (06:33→21:25)
[2020-05-02] MEDS: hydrOXYzine PAMOATE 25 MG CAPSULE (FP) PO SCH (06:33)
[2020-05-02] MEDS: NICOTINE POLACRILEX 2 MG GUM BUC PRN ×2 (06:35→21:26)
--- NOTE | 2020-05-02 08:46 | PN ---
[facility] Progress Note Note: Vital Signs Period Temp Pulse Resp BP Sys/Bruner Pulse Ox Last 24 Hr 97.3 F-97.7 F 54 18-18 113/73 96-98 Patient requesting to start Vivitrol. He will continue Vivitrol tx at [facility]. We (patient and I) agreed that he will start PO on 05/06 and receive the injection on 05/09.
[2020-05-02] MEDS: NICOTINE 14 MG/24 HOURS TOPICAL PATCH TD SCH (10:18)
[2020-05-02] MEDS: ESCITALOPRAM OXALATE 20 MG TABLET PO SCH (10:19)
[2020-05-02] MEDS: PRENATAL VITAMINS W/ FOLIC ACID TABLET (FP) PO SCH (10:19)
[2020-05-02] MEDS: IBUPROFEN 400 MG TABLET (FP) PO PRN (15:54)
[2020-05-02] MEDS: THIAMINE HCL 100 MG TABLET (FP) PO SCH (21:25)
[2020-05-02] MEDS: MELATONIN 5 MG TABLETS PO SCH (21:25)
[2020-05-03] MEDS: GABAPENTIN 300 MG CAPSULE PO SCH ×3 (06:34→21:20)
[2020-05-03] MEDS: NICOTINE POLACRILEX 2 MG GUM BUC PRN ×2 (06:36→14:01)
[2020-05-03] MEDS ORDERED: PT OWN MED DRAWER 7, Y5N ONE (09:04)
[2020-05-03] MEDS: PRENATAL VITAMINS W/ FOLIC ACID TABLET (FP) PO SCH (10:08)
[2020-05-03] MEDS: ESCITALOPRAM OXALATE 20 MG TABLET PO SCH (10:08)
[2020-05-03] MEDS: NICOTINE 14 MG/24 HOURS TOPICAL PATCH TD SCH (10:08)
[2020-05-03] MEDS: THIAMINE HCL 100 MG TABLET (FP) PO SCH (21:20)
[2020-05-03] MEDS: MELATONIN 5 MG TABLETS PO SCH (21:20)
[2020-05-03] MEDS: IBUPROFEN 400 MG TABLET (FP) PO PRN (21:21)
[2020-05-03] MEDS: hydrOXYzine PAMOATE 25 MG CAPSULE (FP) PO PRN (21:21)
[2020-05-04] MEDS: NICOTINE POLACRILEX 2 MG GUM BUC PRN ×4 (03:39→13:44)
[2020-05-04] MEDS: hydrOXYzine PAMOATE 25 MG CAPSULE (FP) PO PRN ×2 (03:39→13:43)
[2020-05-04] MEDS: GABAPENTIN 300 MG CAPSULE PO SCH ×2 (06:48→13:43)
[2020-05-04 07:16] VITALS: BP 136/82; PULSE 62; TEMP 98.2
[2020-05-04] MEDS: NICOTINE 14 MG/24 HOURS TOPICAL PATCH TD SCH (10:49)
[2020-05-04] MEDS: PRENATAL VITAMINS W/ FOLIC ACID TABLET (FP) PO SCH (10:49)
[2020-05-04] MEDS: ESCITALOPRAM OXALATE 20 MG TABLET PO SCH (10:49)
--- NOTE | 2020-05-04 15:58 | DS ---
[facility] Rehab Discharge Summary - [facility] Rehab Discharge Summary Admission Date: 04/27/20 Discharge Date: 05/04/20 - History Present History: Alcohol dependence, Cannabis dependence, Cocaine dependence, Opioid dependence - Discharge Physical Exam Vital Signs: Vital Signs Temperature 98.2 F 05/04/20 06:44 Pulse Rate 62 05/04/20 06:44 Respiratory Rate 18 05/04/20 06:44 Blood Pressure 136/82 05/04/20 06:44 O2 Sat by Pulse Oximetry (%) 97 05/04/20 06:44 Pertinent Admission Physical Exam Findings: withdrawal sx - Treatment Discharge Condition: Responded well - Medication Discharge Medications: Ambulatory Orders Escitalopram Oxalate [Lexapro -] 20 mg PO DAILY 04/22/20 Gabapentin [Gralise] 600 mg PO BID 04/22/20 - Medication-Assisted Treatment (MAT) Medication-Assisted Treatment (MAT): No - Discharge Instructions Diet, activity, other medical instructions: Diet: Regular Activity: No restrictions Other medical instructions: - Diagnosis (1) Alcohol dependence with withdrawal, uncomplicated Current Visit: Yes Status: Acute (2) Opioid dependence with withdrawal Current Visit: Yes Status: Acute (3) Substance-induced anxiety disorder Current Visit: Yes Status: Acute (4) Anxiety Current Visit: Yes Status: Chronic (5) Nicotine dependence Current Visit: Yes Status: Chronic Qualifiers: Nicotine product type: cigarettes Substance use status: uncomplicated Qualified Code(s): F17.210 - Nicotine dependence, cigarettes, uncomplicated (6) PTSD (post-traumatic stress disorder) Current Visit: No Status: Chronic - AMA Did Patient Leave Against Medical Advice: No Additional Comments: Early discharge Patient has been admitted to the [facility] program.
== END 2020-05-04 15:55 | disposition home or self-care (01) | DRG 772 ==
LOC: YASAS 12:57 → Y3W 12:59
PROVIDERS: ADMIT Allergy & Immunology; ATTEND Allergy & Immunology
PROC: HZ42ZZZ Group Counseling for Substance Abuse Treatment, Cognitive-Behavioral (ICD-10-PCS; principal; 2020-04-27)
DX: F10.20 Alcohol dependence, uncomplicated (principal); F11.20 Opioid dependence, uncomplicated; F14.20 Cocaine dependence, uncomplicated; F12.20 Cannabis dependence, uncomplicated; F17.210 Nicotine dependence, cigarettes, uncomplicated; F19.280 Other psychoactive substance dependence with psychoactive substance-induced anxiety disorder; F43.10 Post-traumatic stress disorder, unspecified

== ENCOUNTER 2020-07-13 16:26 | Inpatient (IN) | payer OTHER ==
--- OUTSIDE RECORDS SUMMARY | 2020-07-13 16:29 | XMS ---
:1985 Author Organization [facility] Support Name Relationship Address Phone UE, UNEMPLOYED Unavailable Unavailable Unavailable UE Unavailable Unavailable Unavailable HIGINIO CHRISTINE FATHER [phone] [phone] [place] [address] HIGINIO CHRISTINE Parent [phone] [place] [address] Re-disclosure Warning The records that you are about to access may contain information from federally- assisted alcohol or drug abuse programs. If such information is present, then the following federally mandated warning applies: This information has been disclosed to you from records protected by federal confidentiality rules (42 CFR part 2). The federal rules prohibit you from making any further disclosure of this information unless further disclosure is expressly permitted by the written consent of the person to whom it pertains or as otherwise permitted by 42 CFR part 2. A general authorization for the release of medical or other information is NOT sufficient for this purpose. The Federal rules restrict any use of the information to criminally investigate or prosecute any alcohol or drug abuse patient.The records that you are about to access may contain highly sensitive health information, the redisclosure of which is protected by Article 27-F of the [facility] Public Health law. If you continue you may haveaccess to information: Regarding HIV / AIDS; Provided by facilities licensed or operated by the [facility] Office of Mental Health; or Provided by the [facility] Office for People With Developmental Disabilities. If such information is present, then the following [facility] mandated warning applies: This information has been disclosed to you from confidential records which are protected by state law. State law prohibits you from making any further disclosure of this information without the specific written consent of the person to whom it pertains, or as otherwise permitted by law. Any unauthorized further disclosure in violation of state law may result in a fine or nursing home sentence or both. A general authorization for the release of medical or other information is NOT sufficient authorization for further disclosure. Insurance Providers Payer name Policy type Policy ID Covered Covered green party's Policy P vibha / Coverage green party ID relationship to Lloyd Inf ormation type lloyd BEACON [id number] SP [id number] [employer] Results ID Date Data Source [id number] 06/26/2020 08:56:00 AM EDT [place] Name Value Range Interpretation Description Data Sup porting Code Source(s) Document(s ) [id number] [place] W(Nasal) Reportable This lab was ordered by [facility] and reported by [facility]. ID Date Data Source [id number] 04/22/2020 08:30:00 AM EDT [facility] Name Value Range Interpretation Description Data Sup porting Code Source(s) Document(s ) SARS [facility] CORONAVIRUS 2 RNA This lab was ordered by [facility] Zaira Monzon and reported by [facility]. Procedure
[2020-07-13 18:36] VITALS: BMI 29.9
--- NOTE | 2020-07-13 19:22 | [facility].RME ---
Substance Use & Tx History - Substance Use History Alcohol Substance amount: 1/2 pint vodka, 6 24oz cans beer Frequency of use: Daily Substance route: Oral Date of Last Use: 07/13/20 - Last Treatment Date of last treatment: 04/27 2020 Where was last treatment: Rehab Physical/Psych/Mental Status - Behavior General Behavior: Increased activity (restlessness, agitation) Eye Contact: Normal Other Behaviors: Mannerisms - Cooperativeness Cooperativeness: Cooperative - Thinking Thought Processes: Tight, Logical, Goal Directed - Physical Health Problems Is patient presently having any pain?: Yes (legs/ankles) Does patient presently have any injuries (include location): No Does patient currently have a fever: No COWS - Scale Resting Pulse: 0= [place] 80 or Below Sweatin= Chills/Flushing Restless Observation: 1= Difficult to Sit Still Pupil Size: 1= Pupils >than Normal Bone or Joint Aches: 2= Severe Diffuse Aches Runny Nose/ Eye Tearin= Nasal Congestion GI Upset > 30mins: 2= Nausea/Diarrhea Tremor Observation: 1= Tremor [place], Not Seen Yawning Observation: 1= 1-2x During Session Anxiety or Irritability: 1=Feels Anxious/Irritable Goose Flesh Skin: 3=Piloerection COWS Score: 14 CIWA Nausea/Vomitin Muscle Tremors: 2 Anxiety: 2 Agitation: 2 Paroxysmal Sweats: 2 Orientation: 0-Oriented Tacttile Disturbances: 1-Very Mild Itch/Numbness Auditory Disturbances: 1-Very Mild Visual Disturbances: 1-Very Mild Sensitivity Headache: 2-Mild CIWA-Ar Total Score: 15
--- NOTE | 2020-07-13 19:27 | HP ---
COWS - Scale Resting Pulse: 0= [place] 80 or Below Sweatin= Chills/Flushing Restless Observation: 1= Difficult to Sit Still Pupil Size: 1= Pupils >than Normal Bone or Joint Aches: 2= Severe Diffuse Aches Runny Nose/ Eye Tearin= Nasal Congestion GI Upset > 30mins: 2= Nausea/Diarrhea Tremor Observation: 1= Tremor [place], Not Seen Yawning Observation: 1= 1-2x During Session Anxiety or Irritability: 1=Feels Anxious/Irritable Goose Flesh Skin: 3=Piloerection COWS Score: 14 CIWA Score Nausea/Vomitin Muscle Tremors: 2 Anxiety: 2 Agitation: 2 Paroxysmal Sweats: 2 Orientation: 0-Oriented Tacttile Disturbances: 1-Very Mild Itch/Numbness Auditory Disturbances: 1-Very Mild Visual Disturbances: 1-Very Mild Sensitivity Headache: 2-Mild CIWA-Ar Total Score: 15 - Admission Criteria OASAS Guidelines: Admission for Medically Managed Detox: Requires at least one of the followin. CIWA greater than 12 2. Seizures within the past 24 hours 3. Delirium tremens within the past 24 hours 4. Hallucinations within the past 24 hours 5. Acute intervention needed for co occurring medical disorder 6. Acute intervention needed for co occurring psychiatric disorder 7. Severe withdrawal that cannot be handled at a lower level of care (continued vomiting, continued diarrhea, abnormal vital signs) requiring intravenous medication and/or fluids 8. Patient presents the following: CIWA greater than 12 Admission Criteria Met: Admission criteria met Admitting History and Physical - Smoking History Smoking history: Current every day smoker Have you smoked in the past 12 months: Yes Aproximately how many cigarettes per day: 10 - Alcohol/Substance Use Hx Alcohol Use: Yes Admission ROS S - HPI Chief Complaint: I need help Allergies/Adverse Reactions: Allergies Allergy/AdvReac Type Severity Reaction Status Date / Time No Known Allergies Allergy Verified 04/22/20 21:13 History of Present Illness: 34 year old male presents for detox from alcohol and opiates. UDS shows other substances which he claims are mixed in the heroin. He denies blackouts, reports seizure in 2019. He reports overdose 8 times requiring narcan. Exam Limitations: No Limitations - Ebola screening Have you traveled outside of the country in the last 21 days: No Have you had contact with anyone from an Ebola affected area: No Have you been sick,other than usual withdrawal symptoms: No Do you have a fever: No - Review of Systems Constitutional: Loss of Appetite, Changes in sleep, Unintentional Wgt. Loss EENT: reports: Blurred Vision, Recent change in vision, Nose Congestion Cardiac: reports: No Symptoms Reported GI: reports: No Symptoms Reported : reports: No Symptoms Reported Musculoskeletal: reports: Back Pain, Muscle Pain, Muscle Weakness Integumentary: reports: Sweating Neuro: reports: Headache, Numbness, Weakness Endocrine: reports: No Symptoms Reported Hematology: reports: No Symptoms Reported Psychiatric: reports: Anxious, Depressed, other (PTSD) Other Systems: Reviewed and Negative Patient History - Patient Medical History Hx Anemia: No Hx Asthma: No Hx Chronic Obstructive Pulmonary Disease (COPD): No Hx Cancer: No Hx Cardiac Disorders: No Hx Congestive Heart Failure: No Hx Hypertension: No Hx Hypercholesterolemia: No Hx Pacemaker: No HX Cerebrovascular Accident: No Hx Seizures: No Hx Dementia: No Hx Diabetes: No Hx Gastrointestinal Disorders: No Hx Liver Disease: No Hx Genitourinary Disorders: No Hx Sexually Transmitted Disorders: No Hx Renal Disease (ESRD): No Hx Thyroid Disease: No Hx Human Immunodeficiency Virus (HIV): No Hx Hepatitis C: No Hx Depression: Yes Hx Suicide Attempt: No Hx Bipolar Disorder: No Hx Schizophrenia: No Other Medical History: PTSD, TAMMY - Patient Surgical History Past Surgical History: No - PPD History Previous Implant?: Yes Documented Results: Negative w/proof Implanted On Prior R Admission?: Yes Date: 04/24/20 PPD to be Administered?: No - Smoking Cessation Smoking history: Current every day smoker Have you smoked in the past 12 months: Yes Aproximately how many cigarettes per day: 15 Hx Chewing Tobacco Use: No Initiated information on smoking cessation: Yes 'Breaking Loose' booklet given: 07/13/20 Admission Physical Exam [facility] - Vital Signs Vital Signs: Vital Signs - 24 hr 07/13/20 18:32 Temperature 97.5 F L Pulse Rate 65 Respiratory 18 Rate Blood Pressure 137/90 - Physical General Appearance: Yes: Mild Distress, Tremorous HEENTM: Yes: Hearing grossly Normal, Normocephalic Respiratory: Yes: Chest Non-Tender, Lungs Clear, Normal Breath Sounds, No Respiratory Distress, No Accessory Muscle Use Neck: Yes: No masses,lesions,Nodules, Supple Breast: Yes: Breast Exam Deferred Cardiology: Yes: Regular Rhythm, Regular Rate Abdominal: Yes: Normal Bowel Sounds, Non Tender, Soft Genitourinary: Yes: Within Normal Limits Back: Yes: Normal Inspection Musculoskeletal: Yes: full range of Motion, Gait Steady, Pelvis Stable, Back pain, Muscle Pain, Muscle weakness Extremities: Yes: Normal Range of Motion, Tremors Neurological: Yes: Fully Oriented, Alert, Normal Mood/Affect, Normal Response Integumentary: Yes: Cold Lymphatic: Yes: Within Normal Limits - Diagnostic (1) Alcohol dependence with withdrawal, uncomplicated Current Visit: Yes Status: Acute (2) Opioid dependence with withdrawal Current Visit: Yes Status: Acute (3) Nicotine dependence Current Visit: Yes Status: Chronic Qualifiers: Nicotine product type: cigarettes Substance use status: uncomplicated Qualified Code(s): F17.210 - Nicotine dependence, cigarettes, uncomplicated Cleared for Admission [facility] - Detox or Rehab [facility] Level of Care: Medically Managed Detox Regimen/Protocol: Methadone/Librium Claeared for Rehab Admission: No Breathalyzer - Breathalyzer Breathalyzer: 0 Urine Drug Screen - Test Device Lot number: [id number] Expiration date: 01/30/22 - Control Is test valid?: Yes - Results Drug screen NEGATIVE: No Urine drug screen results: JUANY-Cocaine, FEN-Fentanyl, MOP-Opiates, MTD- Methadone, BZO-Benzodiazepines, MDMA-Ecstasy Inpatient Rehab Admission - Rehab Decision to Admit Inpatient rehab admission?: No
[2020-07-13] MEDS ORDERED: MAGNESIUM CITRATE 300 ML BOTTLE PO PRN (19:29)
[2020-07-13] MEDS ORDERED: chlordiazePOXIDE HCL 25 MG CAPSULE PO PRN (19:29)
[2020-07-13] MEDS ORDERED: BISMUTH SUBSALICYLATE 524 MG/30 ML UD PO PRN (19:29)
[2020-07-13] MEDS ORDERED: METHADONE HCL 10 MG TABLET (FOR DETOX USE ONLY) PO ONE (19:29)
[2020-07-13] MEDS ORDERED: ACETAMINOPHEN 325 MG TABLET (FP) PO PRN ×2 (19:29)
[2020-07-13] MEDS ORDERED: MAG HYDROX/AL HYDROX/SIMETH 30 ML UNIT-DOSE CUP PO PRN (19:29)
[2020-07-13] MEDS ORDERED: IBUPROFEN 400 MG TABLET (FP) PO PRN (19:29)
[2020-07-13] MEDS ORDERED: MAGNESIUM HYDROX 2400MG/30ML ORAL SUSPENSION 30 ML CUP PO PRN (19:29)
[2020-07-13] MEDS ORDERED: cloNIDine HCL 0.1 MG TABLET PO PRN (19:29)
[2020-07-13] MEDS ORDERED: NICOTINE POLACRILEX 2 MG GUM BUC PRN (19:29)
[2020-07-13] MEDS ORDERED: NALOXONE HCL 0.4 MG/ML VIAL IM PRN (19:29)
[2020-07-13] MEDS ORDERED: MENTHOL/PHENOL 1 EACH UD MM PRN (19:29)
--- OUTSIDE RECORDS SUMMARY | 2020-07-13 19:35 | XMS ---
:1985 Author Organization [facility] Support Name Relationship Address Phone UE, UNEMPLOYED Unavailable Unavailable Unavailable UE Unavailable Unavailable Unavailable HIGINIO CHRISTINE FATHER [phone] [phone] [place] [address] HIGINIO CHRISTINE Parent [phone] [place] [address] Re-disclosure Warning The records that you are [...] is protected by Article 27-F of the [facility] Public Health law. If you continue you may haveaccess to information: Regarding HIV / AIDS; Provided by facilities licensed or operated by the [facility] Office of Mental Health; or Provided by the [facility] Office for People With Developmental Disabilities. If such information is present, then the following [facility] mandated warning applies: This information has [...] law may result in a fine or [place] health care facility sentence or both. A general authorization for the release of medical or other information is NOT sufficient authorization for further disclosure. Insurance Providers Payer name Policy type Policy ID Covered Covered constitution party's Policy P vibha / Coverage constitution party ID relationship to Lloyd Inf ormation type lloyd BEACON [id number] SP [id number] [employer] Results ID Date Data Source [id number] 06/26/2020 08:56:00 AM EDT [place] Name Value Range Interpretation Description Data Sup porting Code Source(s) Document(s ) [id number] [place] W(Nasal) Reportable This lab was ordered by [facility] and reported by [facility]. ID Date Data Source [id number] 04/22/2020 08:30:00 AM EDT [facility] Name Value Range Interpretation Description Data Sup porting Code Source(s) Document(s ) SARS [facility] CORONAVIRUS 2 RNA This lab was ordered by [facility] Zaira Monzon and reported by [facility]. Procedure
[2020-07-13] MEDS: MELATONIN 5 MG TABLETS PO SCH (21:16)
[2020-07-13] MEDS: THIAMINE HCL 100 MG TABLET (FP) PO SCH (21:16)
[2020-07-13] MEDS: chlordiazePOXIDE HCL 25 MG CAPSULE PO SCH (22:04)
[2020-07-14] MEDS: chlordiazePOXIDE HCL 25 MG CAPSULE PO SCH ×4 (05:57→22:29)
[2020-07-14] MEDS ORDERED: METHADONE HCL 10 MG TABLET (FOR DETOX USE ONLY) ONE (08:40)
[2020-07-14] MEDS ORDERED: METHADONE HCL 5 MG TABLET (FOR DETOX USE ONLY) ONE (08:40)
[2020-07-14] MEDS ORDERED: METHADONE (DETOX) 20 MG, METHADONE (DETOX) 5 MG PO ONE (10:00)
[2020-07-14] MEDS ORDERED: NICOTINE 7 MG/24 HOURS TOPICAL PATCH TD SCH (10:00)
[2020-07-14] MEDS: PRENATAL VITAMINS W/ FOLIC ACID TABLET (FP) PO SCH (10:15)
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
--- NOTE | 2020-07-14 10:37 | PN ---
S CIWA - CIWA Score Nausea/Vomitin-Mild Nausea/No Vomiting Muscle Tremors: 2 Anxiety: 3 Agitation: 2 Paroxysmal Sweats: 1-Minimal Palms Moist Orientation: 0-Oriented Tacttile Disturbances: 0-None Auditory Disturbances: 0-None Visual Disturbances: 1-Very Mild Sensitivity Headache: 2-Mild CIWA-Ar Total Score: 12 [facility] COWS - Scale Resting Pulse: 0= [place] 80 or Below Sweatin= Chills/Flushing Restless Observation: 0= Sits Still Pupil Size: 1= Pupils >than Normal Bone or Joint Aches: 1= Mild Discomfort Runny Nose/ Eye Tearin= None GI Upset > 30mins: 2= Nausea/Diarrhea Tremor Observation of Outstretched Hands: 2= Slight Tremor Visible Yawning Observation: 0= None Anxiety or Irritability: 2=Irritable/Anxious Goose Flesh Skin: 3=Piloerection COWS Score: 12 S Progress Note (SOAP) Subjective: 34 years old male was admitted on 07/13/20 for alcohol and opiate withdrawal sx management treating with librium detox regiment mr nicole is irritable about nicotine patch only 7 mg "I smoke almost a pack a day" order patch 21 mg and gum 4 mg mr house requests vistaril that he takes for anxiety at home "it works" qt 418 vistaril 50mg po initiated Objective: 07/14/20 10:38 Vital Signs - 24 hr 07/13/20 07/13/20 07/13/20 18:32 19:41 20:57 Temperature 97.5 F L 97.5 F L 97.1 F L Pulse Rate 65 65 63 Respiratory 18 18 18 Rate Blood Pressure 137/90 137/90 126/85 O2 Sat by Pulse 99 Oximetry (%) 07/14/20 07/14/20 06:10 08:43 Temperature 97.1 F L 97.2 F L Pulse Rate 58 L 56 L Respiratory 18 18 Rate Blood Pressure 121/74 122/77 O2 Sat by Pulse 100 Oximetry (%) 07/14/20 10:40 admission lab been cancelled reorder admission lab 07/14/20 10:43 Assessment: 07/14/20 10:44 alcohol and opiate withdrawal Plan: librium and methadone regiments
[2020-07-14] MEDS ORDERED: ESCITALOPRAM OXALATE 10 MG TABLET ONE (10:45)
[2020-07-14] MEDS: GABAPENTIN 300 MG CAPSULE PO SCH ×2 (10:46→22:29)
[2020-07-14] MEDS: METHOCARBAMOL 500 MG TABLET PO PRN ×2 (10:47→22:34)
[2020-07-14] MEDS: ESCITALOPRAM OXALATE 20 MG TABLET PO SCH (10:47)
[2020-07-14] MEDS: hydrOXYzine PAMOATE 50 MG CAPSULE (FP) PO PRN ×2 (10:50→22:33)
[2020-07-14] MEDS: NICOTINE POLACRILEX 2 MG GUM BUC PRN ×2 (10:50→14:09)
[2020-07-14] MEDS ORDERED: NICOTINE 21 MG/24 HOURS TOPICAL PATCH TD ONE (11:00)
[2020-07-14] MEDS: MELATONIN 5 MG TABLETS PO SCH (22:30)
[2020-07-14] MEDS: THIAMINE HCL 100 MG TABLET (FP) PO SCH (22:30)
[2020-07-15] MEDS: chlordiazePOXIDE HCL 25 MG CAPSULE PO SCH ×4 (08:15→22:04)
[2020-07-15] MEDS ORDERED: ESCITALOPRAM OXALATE 10 MG TABLET ONE (09:07)
--- NOTE | 2020-07-15 09:26 | PN ---
[facility] CIWA - CIWA Score Nausea/Vomitin-Mild Nausea/No Vomiting Muscle Tremors: 2 Anxiety: 2 Agitation: 2 Paroxysmal Sweats: 1-Minimal Palms Moist Orientation: 0-Oriented Tacttile Disturbances: 1-Very Mild Itch/Numbness Auditory Disturbances: 0-None Visual Disturbances: 0-None Headache: 2-Mild CIWA-Ar Total Score: 11 S COWS - Scale Resting Pulse: 0= [place] 80 or Below Sweatin= No chills or Flushing Restless Observation: 0= Sits Still Pupil Size: 0= Normal to Room Light Bone or Joint Aches: 2= Severe Diffuse Aches Runny Nose/ Eye Tearin= Nasal Congestion GI Upset > 30mins: 2= Nausea/Diarrhea Tremor Observation of Outstretched Hands: 2= Slight Tremor Visible Yawning Observation: 1= 1-2x During Session Anxiety or Irritability: 2=Irritable/Anxious Goose Flesh Skin: 0=Smooth Skin COWS Score: 10 [facility] Progress Note (SOAP) Subjective: alert,irritable,anxious,interrupted sleep,pain in the body,back aching pain Objective: 07/15/20 13:48 Vital Signs Temperature 97.8 F 07/15/20 12:45 Pulse Rate 65 07/15/20 12:45 Respiratory Rate 18 07/15/20 12:45 Blood Pressure 107/65 07/15/20 12:45 O2 Sat by Pulse Oximetry (%) 99 07/15/20 12:45 Laboratory Last Values WBC 5.0 K/mm3 (4.0-10.0) 07/15/20 08:30 RBC 4.73 M/mm3 (4.00-5.60) 07/15/20 08:30 Hgb 13.9 GM/dL (11.7-16.9) 07/15/20 08:30 Hct 41.1 % (35.4-49) 07/15/20 08:30 MCV 87.0 fl (80-96) 07/15/20 08:30 MCH 29.5 pg (25.7-33.7) 07/15/20 08:30 MCHC 33.8 g/dl (32.0-35.9) 07/15/20 08:30 RDW 14.8 % (11.9-15.9) 07/15/20 08:30 Plt Count 243 K/MM3 (134-434) 07/15/20 08:30 MPV 7.9 fl (7.5-11.1) 07/15/20 08:30 Sodium 140 mmol/L (136-145) 07/15/20 08:30 Potassium 4.6 mmol/L (3.5-5.1) 07/15/20 08:30 Chloride 106 mmol/L (98-107) 07/15/20 08:30 Carbon Dioxide 28 mmol/L (21-32) 07/15/20 08:30 Anion Gap 6 MMOL/L (8-16) L 07/15/20 08:30 BUN 15.2 mg/dL (7-18) 07/15/20 08:30 Creatinine 1.3 mg/dL (0.55-1.3) 07/15/20 08:30 Est GFR (CKD-EPI)AfAm 83.09 07/15/20 08:30 Est GFR (CKD-EPI)NonAf 71.69 07/15/20 08:30 Random Glucose 128 mg/dL (74-106) H 07/15/20 08:30 Calcium 8.4 mg/dL (8.5-10.1) L 07/15/20 08:30 Total Bilirubin 0.8 mg/dL (0.2-1) 07/15/20 08:30 AST 37 U/L (15-37) 07/15/20 08:30 ALT 184 U/L (13-61) H 07/15/20 08:30 Alkaline Phosphatase 109 U/L (45-117) 07/15/20 08:30 Total Protein 6.9 g/dl (6.4-8.2) 07/15/20 08:30 Albumin 2.8 g/dl (3.4-5.0) L 07/15/20 08:30 Syphilis Serology Non-reactive (NONREACTIVE) 07/15/20 08:30 Assessment: 07/15/20 13:49 withdrawal symptom Plan: continue detox methadone and librium regiman,initial glucose 128 fasting glucose in am,repeat alt in am
[2020-07-15] MEDS ORDERED: METHADONE HCL 10 MG TABLET (FOR DETOX USE ONLY) PO ONE (10:00)
[2020-07-15] MEDS: ESCITALOPRAM OXALATE 20 MG TABLET PO SCH (10:11)
[2020-07-15] MEDS: NICOTINE 21 MG/24 HOURS TOPICAL PATCH TD SCH (10:11)
[2020-07-15] MEDS: PRENATAL VITAMINS W/ FOLIC ACID TABLET (FP) PO SCH (10:11)
[2020-07-15] MEDS: METHOCARBAMOL 500 MG TABLET PO PRN ×2 (10:13→17:35)
[2020-07-15] MEDS: GABAPENTIN 300 MG CAPSULE PO SCH ×2 (10:13→22:04)
[2020-07-15] MEDS: hydrOXYzine PAMOATE 50 MG CAPSULE (FP) PO PRN ×2 (10:13→17:35)
[2020-07-15 12:21] LABS: HEMATOCRIT 41.1 % (35.4-49); HEMOGLOBIN 13.9 GM/dL (11.7-16.9); MCH 29.5 pg (25.7-33.7); MCHC 33.8 g/dl (32.0-35.9); MEAN PLT VOLUME 7.9 fl (7.5-11.1); PLATELET COUNT 243 K/MM3 (134-434); RBC 4.73 M/mm3 (4.00-5.60); RDW 14.8 % (11.9-15.9)
[2020-07-15 12:49] LABS: ALBUMIN 2.8 g/dl (3.4-5.0); BILIRUBIN,TOTAL 0.8 mg/dL (0.2-1); BLOOD UREA NITROGEN 15.2 mg/dL (7-18); CALCIUM 8.4 mg/dL (8.5-10.1); CREATININE 1.3 mg/dL (0.55-1.3); POTASSIUM 4.6 mmol/L (3.5-5.1); TOT PROT 6.9 g/dl (6.4-8.2)
[2020-07-15] MEDS: MELATONIN 5 MG TABLETS PO SCH (22:04)
[2020-07-15] MEDS: THIAMINE HCL 100 MG TABLET (FP) PO SCH (22:04)
[2020-07-16] MEDS ORDERED: chlordiazePOXIDE HCL 10 MG CAPSULE PO PRN
[2020-07-16] MEDS: chlordiazePOXIDE HCL 10 MG CAPSULE PO SCH ×4 (06:11→22:12)
[2020-07-16] MEDS ORDERED: METHADONE HCL 10 MG TABLET (FOR DETOX USE ONLY) ONE (09:33)
[2020-07-16] MEDS ORDERED: METHADONE HCL 5 MG TABLET (FOR DETOX USE ONLY) ONE (09:33)
[2020-07-16] MEDS ORDERED: ESCITALOPRAM OXALATE 10 MG TABLET ONE (09:34)
--- NOTE | 2020-07-16 09:36 | PN ---
[facility] CIWA - CIWA Score Nausea/Vomitin-Mild Nausea/No Vomiting Muscle Tremors: 2 Anxiety: 2 Agitation: 2 Paroxysmal Sweats: No Perspiration Orientation: 0-Oriented Tacttile Disturbances: 1-Very Mild Itch/Numbness Auditory Disturbances: 0-None Visual Disturbances: 0-None Headache: 1-Very Mild CIWA-Ar Total Score: 9 S COWS - Scale Resting Pulse: 0= [place] 80 or Below Sweatin= No chills or Flushing Restless Observation: 0= Sits Still Pupil Size: 0= Normal to Room Light Bone or Joint Aches: 1= Mild Discomfort Runny Nose/ Eye Tearin= Nasal Congestion GI Upset > 30mins: 1= Stomach Cramp Tremor Observation of Outstretched Hands: 1= Tremor [place], Not Seen Yawning Observation: 1= 1-2x During Session Anxiety or Irritability: 2=Irritable/Anxious Goose Flesh Skin: 0=Smooth Skin COWS Score: 7 [facility] Progress Note (SOAP) Subjective: alert,irritable,anxious,interrupted sleep,aching pain,nausea Objective: 07/16/20 15:06 Vital Signs Temperature 97.1 F L 07/16/20 12:42 Pulse Rate 49 L 07/16/20 12:42 Respiratory Rate 18 07/16/20 12:42 Blood Pressure 106/73 07/16/20 12:42 O2 Sat by Pulse Oximetry (%) 97 07/16/20 12:42 Laboratory Last Values WBC 5.0 K/mm3 (4.0-10.0) 07/15/20 08:30 RBC 4.73 M/mm3 (4.00-5.60) 07/15/20 08:30 Hgb 13.9 GM/dL (11.7-16.9) 07/15/20 08:30 Hct 41.1 % (35.4-49) 07/15/20 08:30 MCV 87.0 fl (80-96) 07/15/20 08:30 MCH 29.5 pg (25.7-33.7) 07/15/20 08:30 MCHC 33.8 g/dl (32.0-35.9) 07/15/20 08:30 RDW 14.8 % (11.9-15.9) 07/15/20 08:30 Plt Count 243 K/MM3 (134-434) 07/15/20 08:30 MPV 7.9 fl (7.5-11.1) 07/15/20 08:30 Sodium 140 mmol/L (136-145) 07/15/20 08:30 Potassium 4.6 mmol/L (3.5-5.1) 07/15/20 08:30 Chloride 106 mmol/L (98-107) 07/15/20 08:30 Carbon Dioxide 28 mmol/L (21-32) 07/15/20 08:30 Anion Gap 6 MMOL/L (8-16) L 07/15/20 08:30 BUN 15.2 mg/dL (7-18) 07/15/20 08:30 Creatinine 1.3 mg/dL (0.55-1.3) 07/15/20 08:30 Est GFR (CKD-EPI)AfAm 83.09 07/15/20 08:30 Est GFR (CKD-EPI)NonAf 71.69 07/15/20 08:30 Random Glucose 128 mg/dL (74-106) H 07/15/20 08:30 Calcium 8.4 mg/dL (8.5-10.1) L 07/15/20 08:30 Total Bilirubin 0.8 mg/dL (0.2-1) 07/15/20 08:30 AST 37 U/L (15-37) 07/15/20 08:30 ALT 184 U/L (13-61) H 07/15/20 08:30 Alkaline Phosphatase 109 U/L (45-117) 07/15/20 08:30 Total Protein 6.9 g/dl (6.4-8.2) 07/15/20 08:30 Albumin 2.8 g/dl (3.4-5.0) L 07/15/20 08:30 Syphilis Serology Non-reactive (NONREACTIVE) 07/15/20 08:30 Assessment: 07/16/20 15:08 withdrawal symptom Plan: continue detox methadone and librium regimen,repeat fasting glucose,alt in am
[2020-07-16] MEDS ORDERED: METHADONE (DETOX) 10 MG, METHADONE (DETOX) 5 MG PO ONE (10:00)
[2020-07-16] MEDS: GABAPENTIN 300 MG CAPSULE PO SCH ×2 (10:31→22:12)
[2020-07-16] MEDS: ESCITALOPRAM OXALATE 20 MG TABLET PO SCH (10:31)
[2020-07-16] MEDS: PRENATAL VITAMINS W/ FOLIC ACID TABLET (FP) PO SCH (10:32)
[2020-07-16] MEDS: NICOTINE 21 MG/24 HOURS TOPICAL PATCH TD SCH (10:32)
[2020-07-16] MEDS: METHOCARBAMOL 500 MG TABLET PO PRN ×2 (10:33→22:14)
[2020-07-16] MEDS: hydrOXYzine PAMOATE 50 MG CAPSULE (FP) PO PRN ×2 (10:33→22:12)
[2020-07-16] MEDS: THIAMINE HCL 100 MG TABLET (FP) PO SCH (22:12)
[2020-07-16] MEDS: MELATONIN 5 MG TABLETS PO SCH (22:13)
[2020-07-17] MEDS: chlordiazePOXIDE HCL 10 MG CAPSULE PO SCH ×2 (06:11→18:24)
--- NOTE | 2020-07-17 08:44 | PN ---
[facility] CIWA - CIWA Score Nausea/Vomitin-No Nausea/No Vomiting Muscle Tremors: 2 Anxiety: 2 Agitation: 2 Paroxysmal Sweats: No Perspiration Orientation: 0-Oriented Tacttile Disturbances: 0-None Auditory Disturbances: 0-None Visual Disturbances: 0-None Headache: 1-Very Mild CIWA-Ar Total Score: 7 [facility] COWS - Scale Resting Pulse: 0= [place] 80 or Below Sweatin= No chills or Flushing Restless Observation: 0= Sits Still Pupil Size: 0= Normal to Room Light Bone or Joint Aches: 1= Mild Discomfort Runny Nose/ Eye Tearin= Nasal Congestion GI Upset > 30mins: 1= Stomach Cramp Tremor Observation of Outstretched Hands: 1= Tremor [place], Not Seen Yawning Observation: 0= None Anxiety or Irritability: 2=Irritable/Anxious Goose Flesh Skin: 0=Smooth Skin COWS Score: 6 [facility] Progress Note (SOAP) Subjective: alert,irritable,anxious,interrupted sleep,aching pain Objective: 07/17/20 10:51 Vital Signs Temperature 97.5 F L 07/17/20 08:56 Pulse Rate 56 L 07/17/20 08:56 Respiratory Rate 18 07/17/20 08:56 Blood Pressure 106/60 07/17/20 08:56 O2 Sat by Pulse Oximetry (%) 100 07/17/20 06:18 07/17/20 10:51 fasting glucose,repeat alt pending Assessment: 07/17/20 10:51 withdrawal symptom 07/17/20 10:52 Plan: continue detox methadone and librium regimen,discharge in am
[2020-07-17] MEDS ORDERED: METHADONE HCL 10 MG TABLET (FOR DETOX USE ONLY) PO ONE (10:00)
[2020-07-17] MEDS: ESCITALOPRAM OXALATE 20 MG TABLET PO SCH (10:23)
[2020-07-17] MEDS: METHOCARBAMOL 500 MG TABLET PO PRN ×2 (10:23→22:04)
[2020-07-17] MEDS: GABAPENTIN 300 MG CAPSULE PO SCH ×2 (10:23→22:03)
[2020-07-17] MEDS: PRENATAL VITAMINS W/ FOLIC ACID TABLET (FP) PO SCH (10:24)
[2020-07-17] MEDS: NICOTINE 21 MG/24 HOURS TOPICAL PATCH TD SCH (10:24)
[2020-07-17] MEDS: hydrOXYzine PAMOATE 50 MG CAPSULE (FP) PO PRN ×2 (10:26→22:04)
[2020-07-17 10:55] LABS: GLUCOSE,FASTING 87 mg/dL (74-106); SGPT/ALT 132 U/L (13-61)
[2020-07-17] MEDS: NICOTINE POLACRILEX 2 MG GUM BUC PRN (12:24)
[2020-07-17] MEDS ORDERED: MASKS NR ONE (15:39)
[2020-07-17] MEDS: MELATONIN 5 MG TABLETS PO SCH (22:03)
[2020-07-17] MEDS: THIAMINE HCL 100 MG TABLET (FP) PO SCH (22:03)
[2020-07-18] MEDS ORDERED: chlordiazePOXIDE HCL 10 MG CAPSULE PO ONE (05:00)
[2020-07-18] MEDS: METHOCARBAMOL 500 MG TABLET PO PRN (05:27)
[2020-07-18] MEDS: hydrOXYzine PAMOATE 50 MG CAPSULE (FP) PO PRN (05:27)
[2020-07-18] MEDS: NICOTINE POLACRILEX 2 MG GUM BUC PRN (05:28)
[2020-07-18] MEDS ORDERED: METHADONE HCL 5 MG TABLET (FOR DETOX USE ONLY) PO ONE (06:00)
--- NOTE | 2020-07-18 09:10 | PN ---
[facility] CIWA - CIWA Score Nausea/Vomitin-No Nausea/No Vomiting Muscle Tremors: None Anxiety: 1-Mildly Anxious Agitation: 0-Normal Activity Orientation: 0-Oriented Tacttile Disturbances: 0-None Auditory Disturbances: 0-None Visual Disturbances: 0-None Headache: 0-None Present [facility] COWS - Scale Resting Pulse: 1= [place] 81-100 Sweatin= No chills or Flushing Restless Observation: 0= Sits Still Pupil Size: 0= Normal to Room Light Bone or Joint Aches: 0= None Runny Nose/ Eye Tearin= None GI Upset > 30mins: 0= None Tremor Observation of Outstretched Hands: 0= None Yawning Observation: 0= None Anxiety or Irritability: 0= None Goose Flesh Skin: 0=Smooth Skin COWS Score: 1 [facility] Progress Note (SOAP) Subjective: alert,no complaint Objective: 07/19/20 08:01 Vital Signs Temperature 96.9 F L 07/18/20 08:40 Pulse Rate 86 07/18/20 08:40 Respiratory Rate 18 07/18/20 08:40 Blood Pressure 102/68 07/18/20 08:40 O2 Sat by Pulse Oximetry (%) 100 07/18/20 06:27 Assessment: 07/19/20 08:01 detox completed,no withdrawal symptom,discharge today,follow up with after care program as arrangement Plan: stable for discharge
--- NOTE | 2020-07-18 09:11 | DS ---
[facility] Detox Discharge Summary Admission Date: 07/13/20 Discharge Date: 07/18/20 - History Present History: Alcohol Dependence, Opioid Dependence Additional Comments: alert,oriented x 3 ambulation on the unit lung clear on auscultation bilaterally abdomen soft,no pain,no tenderness stable for discharge detox completed,no withdrawal symptom patent decline rehab at [facility] accepted to go to [facility] rehab left the unit in Good and stable condition total time spending on discharge 35 minutes Pertinent Past History: ptsd - Physical Exam Results Vital Signs: Vital Signs Temperature 97.9 F 07/18/20 06:27 Pulse Rate 51 L 07/18/20 06:27 Respiratory Rate 18 07/18/20 06:27 Blood Pressure 98/64 07/18/20 06:27 O2 Sat by Pulse Oximetry (%) 100 07/18/20 06:27 Pertinent Admission Physical Exam Findings: withdrawal signs and symptom Vital Signs Temperature 96.9 F L 07/18/20 08:40 Pulse Rate 86 07/18/20 08:40 Respiratory Rate 18 07/18/20 08:40 Blood Pressure 102/68 07/18/20 08:40 O2 Sat by Pulse Oximetry (%) 100 07/18/20 06:27 Laboratory Last Values WBC 5.0 K/mm3 (4.0-10.0) 07/15/20 08:30 RBC 4.73 M/mm3 (4.00-5.60) 07/15/20 08:30 Hgb 13.9 GM/dL (11.7-16.9) 07/15/20 08:30 Hct 41.1 % (35.4-49) 07/15/20 08:30 MCV 87.0 fl (80-96) 07/15/20 08:30 MCH 29.5 pg (25.7-33.7) 07/15/20 08:30 MCHC 33.8 g/dl (32.0-35.9) 07/15/20 08:30 RDW 14.8 % (11.9-15.9) 07/15/20 08:30 Plt Count 243 K/MM3 (134-434) 07/15/20 08:30 MPV 7.9 fl (7.5-11.1) 07/15/20 08:30 Sodium 140 mmol/L (136-145) 07/15/20 08:30 Potassium 4.6 mmol/L (3.5-5.1) 07/15/20 08:30 Chloride 106 mmol/L (98-107) 07/15/20 08:30 Carbon Dioxide 28 mmol/L (21-32) 07/15/20 08:30 Anion Gap 6 MMOL/L (8-16) L 07/15/20 08:30 BUN 15.2 mg/dL (7-18) 07/15/20 08:30 Creatinine 1.3 mg/dL (0.55-1.3) 07/15/20 08:30 Est GFR (CKD-EPI)AfAm 83.09 07/15/20 08:30 Est GFR (CKD-EPI)NonAf 71.69 07/15/20 08:30 Random Glucose 128 mg/dL (74-106) H 07/15/20 08:30 Fasting Glucose 87 mg/dL (74-106) 07/17/20 08:00 Calcium 8.4 mg/dL (8.5-10.1) L 07/15/20 08:30 Total Bilirubin 0.8 mg/dL (0.2-1) 07/15/20 08:30 AST 37 U/L (15-37) 07/15/20 08:30 ALT 132 U/L (13-61) H 07/17/20 08:00 Alkaline Phosphatase 109 U/L (45-117) 07/15/20 08:30 Total Protein 6.9 g/dl (6.4-8.2) 07/15/20 08:30 Albumin 2.8 g/dl (3.4-5.0) L 07/15/20 08:30 Syphilis Serology Non-reactive (NONREACTIVE) 07/15/20 08:30 COVID-19 (DEVIN) Not detected (Not Detected) 07/13/20 08:08 - Treatment Hospital Course: Detox Protocol Followed, Detoxed Safely, Responded well, Discharged Condition Good, Rehab Referral Accepted Patient has Accepted a Rehab Referral to: [facility] - Medication Discharge Medications: Ambulatory Orders Gabapentin [Gralise] 600 mg PO BID 04/22/20 Escitalopram Oxalate [Lexapro -] 20 mg PO DAILY #30 tablet 07/18/20 Gabapentin 600 mg PO BID #60 tablet 07/18/20 - Diagnosis (1) Opioid dependence with withdrawal Status: Acute (2) Alcohol dependence with withdrawal, uncomplicated Status: Acute (3) Anxiety Status: Chronic (4) Nicotine dependence Status: Chronic Qualifiers: Nicotine product type: cigarettes Substance use status: uncomplicated Qualified Code(s): F17.210 - Nicotine dependence, cigarettes, uncomplicated (5) PTSD (post-traumatic stress disorder) Status: Chronic - AMA Did Patient Leave Against Medical Advice: No
[2020-07-18 09:17] VITALS: BP 102/68; PULSE 86; TEMP 96.9
== END 2020-07-18 09:25 | disposition other institution (70) | DRG 773 ==
LOC: YASAS 16:26 → Y3N 19:32
PROVIDERS: ADMIT Allergy & Immunology; ATTEND Allergy & Immunology
PROC: HZ2ZZZZ Detoxification Services for Substance Abuse Treatment (ICD-10-PCS; principal; 2020-07-13)
DX: F10.230 Alcohol dependence with withdrawal, uncomplicated (principal); F11.23 Opioid dependence with withdrawal; F17.210 Nicotine dependence, cigarettes, uncomplicated; F19.280 Other psychoactive substance dependence with psychoactive substance-induced anxiety disorder; F19.282 Other psychoactive substance dependence with psychoactive substance-induced sleep disorder; F43.10 Post-traumatic stress disorder, unspecified; F41.1 Generalized anxiety disorder
CPT/HCPCS: 36415; 80053; 82947; 84460; 85027; 86780; U0003

== ENCOUNTER 2020-11-28 18:35 | Inpatient (IN) | payer OTHER ==
[2020-11-28 19:28] VITALS: BMI 31.4
[2020-11-28] MEDS ORDERED: MENTHOL/PHENOL 1 EACH UD MM PRN (20:00)
[2020-11-28] MEDS ORDERED: ONDANSETRON *ODT* 4 MG TABLET SL PRN (20:00)
[2020-11-28] MEDS ORDERED: MAG HYDROX/AL HYDROX/SIMETH 30 ML UNIT-DOSE CUP PO PRN (20:00)
[2020-11-28] MEDS ORDERED: MAGNESIUM CITRATE 300 ML BOTTLE PO PRN (20:00)
[2020-11-28] MEDS ORDERED: MAGNESIUM HYDROX 2400MG/30ML ORAL SUSPENSION 30 ML CUP PO PRN (20:00)
[2020-11-28] MEDS ORDERED: BISMUTH SUBSALICYLATE 524 MG/30 ML UD PO PRN (20:00)
[2020-11-28] MEDS ORDERED: chlordiazePOXIDE HCL 25 MG CAPSULE PO PRN (20:00)
[2020-11-28] MEDS ORDERED: P-EPHED 60MG/TRIPROLIDI 2.5MG TABLET PO PRN (20:00)
[2020-11-28] MEDS ORDERED: NALOXONE HCL 0.4 MG/ML VIAL IM PRN (20:00)
[2020-11-28] MEDS ORDERED: ACETAMINOPHEN 325 MG TABLET (FP) PO PRN ×2 (20:00)
[2020-11-28] MEDS ORDERED: IBUPROFEN 400 MG TABLET (FP) PO PRN (20:00)
[2020-11-28] MEDS ORDERED: cloNIDine HCL 0.1 MG TABLET PO PRN (20:00)
[2020-11-28] MEDS: PRENATAL VITAMINS W/ FOLIC ACID TABLET (FP) PO SCH (20:44)
[2020-11-28] MEDS ORDERED: METHADONE HCL 10 MG TABLET (FOR DETOX USE ONLY) PO ONE (21:00)
[2020-11-28] MEDS: chlordiazePOXIDE HCL 25 MG CAPSULE PO SCH (22:14)
[2020-11-28] MEDS: THIAMINE HCL 100 MG TABLET (FP) PO SCH (22:14)
[2020-11-28] MEDS: SENNOSIDES 8.6MG TABLET (FP) PO SCH (22:15)
[2020-11-28] MEDS: MELATONIN 5 MG TABLETS PO SCH (22:15)
[2020-11-28] MEDS: hydrOXYzine PAMOATE 25 MG CAPSULE (FP) PO SCH (22:15)
[2020-11-28] MEDS: NICOTINE POLACRILEX 4 MG GUM BUC PRN (22:18)
[2020-11-29] MEDS: chlordiazePOXIDE HCL 25 MG CAPSULE PO SCH ×2 (05:19→10:11)
[2020-11-29] MEDS: hydrOXYzine PAMOATE 25 MG CAPSULE (FP) PO SCH ×5 (05:41→22:44)
[2020-11-29] MEDS ORDERED: METHADONE HCL 10 MG TABLET (FOR DETOX USE ONLY) ONE (08:54)
[2020-11-29] MEDS ORDERED: METHADONE HCL 5 MG TABLET (FOR DETOX USE ONLY) ONE (08:54)
[2020-11-29] MEDS: NICOTINE POLACRILEX 4 MG GUM BUC PRN (09:27)
[2020-11-29] MEDS ORDERED: METHADONE (DETOX) 20 MG, METHADONE (DETOX) 5 MG PO ONE (10:00)
[2020-11-29] MEDS: NICOTINE 21 MG/24 HOURS TOPICAL PATCH TD SCH (10:12)
[2020-11-29] MEDS: DOCUSATE SODIUM 100 MG CAPSULE (FP) PO SCH (10:12)
[2020-11-29] MEDS: PRENATAL VITAMINS W/ FOLIC ACID TABLET (FP) PO SCH (10:12)
[2020-11-29] MEDS: SERTRALINE HCL 50 MG TABLET (FP) PO SCH (10:13)
[2020-11-29 10:51] LABS: HEMATOCRIT 44.2 % (35.4-49); HEMOGLOBIN 15.2 GM/dL (11.7-16.9); MCH 30.3 pg (25.7-33.7); MCHC 34.4 g/dl (32.0-35.9); MEAN CELL VOLUME 88.1 fl (80-96); MEAN PLT VOLUME 6.7 fl (7.5-11.1); PLATELET COUNT 241 K/MM3 (134-434); RBC 5.01 M/mm3 (4.00-5.60); RDW 14.2 % (11.9-15.9)
[2020-11-29 11:13] LABS: POTASSIUM 4.2 mmol/L (3.5-5.1)
[2020-11-29 11:16] LABS: ALBUMIN 3.1 g/dl (3.4-5.0)
[2020-11-29 11:17] LABS: BLOOD UREA NITROGEN 10.1 mg/dL (7-18)
[2020-11-29 11:18] LABS: CALCIUM 8.9 mg/dL (8.5-10.1)
[2020-11-29 11:19] LABS: CREATININE 0.9 mg/dL (0.55-1.3)
[2020-11-29 11:21] LABS: TOT PROT 7.5 g/dl (6.4-8.2)
[2020-11-29] MEDS ORDERED: LORazepam 1 MG TABLET PO PRN (12:06)
[2020-11-29] MEDS: LORazepam 2 MG TABLET PO SCH ×2 (17:36→22:28)
[2020-11-29] MEDS: THIAMINE HCL 100 MG TABLET (FP) PO SCH (22:29)
[2020-11-29] MEDS: SENNOSIDES 8.6MG TABLET (FP) PO SCH (22:29)
[2020-11-29] MEDS: MELATONIN 5 MG TABLETS PO SCH (22:33)
[2020-11-30] MEDS ORDERED: chlordiazePOXIDE HCL 25 MG CAPSULE PO SCH (05:00)
[2020-11-30] MEDS: hydrOXYzine PAMOATE 25 MG CAPSULE (FP) PO SCH ×5 (05:39→22:08)
[2020-11-30] MEDS: METHOCARBAMOL 500 MG TABLET PO PRN ×2 (05:41→18:04)
[2020-11-30] MEDS: LORazepam 2 MG TABLET PO SCH ×4 (05:42→22:09)
[2020-11-30] MEDS ORDERED: METHADONE HCL 10 MG TABLET (FOR DETOX USE ONLY) PO ONE (10:00)
[2020-11-30] MEDS: SERTRALINE HCL 50 MG TABLET (FP) PO SCH (10:17)
[2020-11-30] MEDS: DOCUSATE SODIUM 100 MG CAPSULE (FP) PO SCH (10:17)
[2020-11-30] MEDS: PRENATAL VITAMINS W/ FOLIC ACID TABLET (FP) PO SCH (10:19)
[2020-11-30] MEDS: NICOTINE 21 MG/24 HOURS TOPICAL PATCH TD SCH (10:19)
[2020-11-30 10:35] LABS: INR 1.17 (0.83-1.09); PROTHROMBIN TIME (PATIENT) 14.1 SEC (9.7-13.0)
[2020-11-30 10:59] LABS: POTASSIUM 4.6 mmol/L (3.5-5.1)
[2020-11-30 11:01] LABS: CALCIUM 8.9 mg/dL (8.5-10.1)
[2020-11-30 11:02] LABS: ALBUMIN 3.3 g/dl (3.4-5.0); BLOOD UREA NITROGEN 11.1 mg/dL (7-18)
[2020-11-30 11:05] LABS: CREATININE 0.9 mg/dL (0.55-1.3)
[2020-11-30 11:06] LABS: BILIRUBIN,TOTAL 1.2 mg/dL (0.2-1)
[2020-11-30 11:07] LABS: TOT PROT 7.9 g/dl (6.4-8.2)
[2020-11-30] MEDS: MELATONIN 5 MG TABLETS PO SCH (22:08)
[2020-11-30] MEDS: SENNOSIDES 8.6MG TABLET (FP) PO SCH (22:09)
[2020-11-30] MEDS: THIAMINE HCL 100 MG TABLET (FP) PO SCH (22:09)
[2020-12-01] MEDS ORDERED: chlordiazePOXIDE HCL 10 MG CAPSULE PO PRN
[2020-12-01] MEDS ORDERED: chlordiazePOXIDE HCL 10 MG CAPSULE PO SCH (05:00)
[2020-12-01] MEDS: LORazepam 1 MG TABLET PO SCH ×4 (05:30→22:25)
[2020-12-01] MEDS: hydrOXYzine PAMOATE 25 MG CAPSULE (FP) PO SCH ×4 (05:31→22:25)
[2020-12-01] MEDS ORDERED: METHADONE HCL 5 MG TABLET (FOR DETOX USE ONLY) ONE (09:20)
[2020-12-01] MEDS ORDERED: METHADONE HCL 10 MG TABLET (FOR DETOX USE ONLY) ONE (09:21)
[2020-12-01] MEDS ORDERED: METHADONE (DETOX) 10 MG, METHADONE (DETOX) 5 MG PO ONE (10:00)
[2020-12-01] MEDS: DOCUSATE SODIUM 100 MG CAPSULE (FP) PO SCH (10:30)
[2020-12-01] MEDS: SERTRALINE HCL 50 MG TABLET (FP) PO SCH (10:31)
[2020-12-01] MEDS: PRENATAL VITAMINS W/ FOLIC ACID TABLET (FP) PO SCH (10:32)
[2020-12-01] MEDS: NICOTINE 21 MG/24 HOURS TOPICAL PATCH TD SCH (10:32)
[2020-12-01] MEDS: METHOCARBAMOL 500 MG TABLET PO PRN (18:06)
[2020-12-01] MEDS: SENNOSIDES 8.6MG TABLET (FP) PO SCH (22:25)
[2020-12-01] MEDS: MELATONIN 5 MG TABLETS PO SCH (22:25)
[2020-12-01] MEDS: THIAMINE HCL 100 MG TABLET (FP) PO SCH (22:25)
[2020-12-02] MEDS ORDERED: LORazepam 0.5 MG TABLET PO PRN
[2020-12-02] MEDS: hydrOXYzine PAMOATE 25 MG CAPSULE (FP) PO SCH ×5 (01:23→13:32)
[2020-12-02] MEDS ORDERED: chlordiazePOXIDE HCL 10 MG CAPSULE PO SCH (05:00)
[2020-12-02] MEDS: LORazepam 0.5 MG TABLET PO SCH ×2 (05:21→10:27)
[2020-12-02] MEDS ORDERED: METHADONE HCL 10 MG TABLET (FOR DETOX USE ONLY) PO ONE (10:00)
[2020-12-02] MEDS: PRENATAL VITAMINS W/ FOLIC ACID TABLET (FP) PO SCH (10:26)
[2020-12-02] MEDS: DOCUSATE SODIUM 100 MG CAPSULE (FP) PO SCH (10:26)
[2020-12-02] MEDS: SERTRALINE HCL 50 MG TABLET (FP) PO SCH (10:26)
[2020-12-02] MEDS: NICOTINE 21 MG/24 HOURS TOPICAL PATCH TD SCH (10:28)
[2020-12-02] MEDS: METHOCARBAMOL 500 MG TABLET PO PRN (10:30)
[2020-12-02] MEDS: NICOTINE POLACRILEX 4 MG GUM BUC PRN (11:21)
[2020-12-02 13:02] VITALS: BP 102/58; PULSE 114; TEMP 98.2
[2020-12-02 15:37] LABS: URINE APPEARANCE CLEAR; URINE BILIRUBIN 1+ (NEGATIVE); URINE COLOR DK YELLOW; URINE GLUCOSE (UA) NEGATIVE (NEGATIVE); URINE KETONE TRACE (NEGATIVE); URINE LEUK ESTERASE NEGATIVE (NEGATIVE); URINE NITRITE NEGATIVE (NEGATIVE); URINE PROTEIN TRACE (NEGATIVE)
[2020-12-02 16:42] LABS: BILIRUBIN,TOTAL 0.6 mg/dL (0.2-1); BLOOD UREA NITROGEN 14.3 mg/dL (7-18); CALCIUM 9.8 mg/dL (8.5-10.1); CREATININE 1.1 mg/dL (0.55-1.3); POTASSIUM 5.2 mmol/L (3.5-5.1); TOT PROT 9.7 g/dl (6.4-8.2)
[2020-12-03] MEDS ORDERED: chlordiazePOXIDE HCL 10 MG CAPSULE PO ONE (05:00)
[2020-12-03] MEDS ORDERED: LORazepam 0.5 MG TABLET PO ONE (05:00)
[2020-12-03] MEDS ORDERED: METHADONE HCL 5 MG TABLET (FOR DETOX USE ONLY) PO ONE (06:00)
== END 2020-12-02 14:07 | disposition home or self-care (01) | DRG 773 ==
LOC: YASAS 18:35 → Y6N 19:53
PROVIDERS: ADMIT Allergy & Immunology; ATTEND Allergy & Immunology
PROC: HZ2ZZZZ Detoxification Services for Substance Abuse Treatment (ICD-10-PCS; principal; 2020-11-28)
DX: F10.230 Alcohol dependence with withdrawal, uncomplicated (principal); F11.23 Opioid dependence with withdrawal; F14.10 Cocaine abuse, uncomplicated; F17.210 Nicotine dependence, cigarettes, uncomplicated; F19.282 Other psychoactive substance dependence with psychoactive substance-induced sleep disorder; F19.280 Other psychoactive substance dependence with psychoactive substance-induced anxiety disorder; F19.24 Other psychoactive substance dependence with psychoactive substance-induced mood disorder; F41.9 Anxiety disorder, unspecified; F32.9 Major depressive disorder, single episode, unspecified; F43.10 Post-traumatic stress disorder, unspecified; B18.2 Chronic viral hepatitis C; R74.8 Abnormal levels of other serum enzymes; Z62.810 Personal history of physical and sexual abuse in childhood
CPT/HCPCS: 36415; 80053; 81003; 85027; 85610; 86780; 86803; C9803; J0735; U0003

== ENCOUNTER 2021-01-03 18:27 | Inpatient (IN) | payer OTHER ==
[2021-01-03 19:56] VITALS: BMI 29.9
[2021-01-03] MEDS ORDERED: IBUPROFEN 400 MG TABLET (FP) PO PRN (22:58)
[2021-01-03] MEDS ORDERED: MAG HYDROX/AL HYDROX/SIMETH 30 ML UNIT-DOSE CUP PO PRN (22:58)
[2021-01-03] MEDS ORDERED: MAGNESIUM CITRATE 300 ML BOTTLE PO PRN (22:58)
[2021-01-03] MEDS ORDERED: MENTHOL/PHENOL 1 EACH UD MM PRN (22:58)
[2021-01-03] MEDS ORDERED: ACETAMINOPHEN 325 MG TABLET (FP) PO PRN ×2 (22:58)
[2021-01-03] MEDS ORDERED: BISMUTH SUBSALICYLATE 524 MG/30 ML UD PO PRN (22:58)
[2021-01-03] MEDS ORDERED: LORazepam 1 MG TABLET PO PRN (23:01)
[2021-01-03] MEDS ORDERED: cloNIDine HCL 0.1 MG TABLET PO PRN (23:02)
[2021-01-03] MEDS ORDERED: METHADONE HCL 10 MG TABLET (FOR DETOX USE ONLY) PO ONE (23:02)
[2021-01-04] MEDS ORDERED: METHADONE HCL 10 MG TABLET (FOR DETOX USE ONLY) ONE ×2 (00:11→11:06)
[2021-01-04] MEDS ORDERED: LORazepam 1 MG TABLET ONE (00:12)
[2021-01-04] MEDS: LORazepam 2 MG TABLET PO SCH ×5 (00:13→22:53)
[2021-01-04] MEDS ORDERED: LORazepam 2 MG TABLET ONE ×2 (05:56→10:58)
[2021-01-04] MEDS ORDERED: METHADONE HCL 5 MG TABLET PO ONE (10:00)
[2021-01-04 10:43] LABS: HEMATOCRIT 44.1 % (35.4-49); HEMOGLOBIN 15.4 GM/dL (11.7-16.9); MCH 30.7 pg (25.7-33.7); MCHC 34.8 g/dl (32.0-35.9); MEAN CELL VOLUME 88.3 fl (80-96); MEAN PLT VOLUME 6.6 fl (7.5-11.1); PLATELET COUNT 245 K/MM3 (134-434); RDW 14.7 % (11.9-15.9); WHITE BLOOD COUNT 5.7 K/mm3 (4.0-10.0)
[2021-01-04] MEDS ORDERED: METHADONE HCL 5 MG TABLET (FOR DETOX USE ONLY) ONE ×2 (10:58→11:06)
[2021-01-04 11:24] LABS: POTASSIUM 4.4 mmol/L (3.5-5.1)
[2021-01-04 11:32] LABS: CALCIUM 9.4 mg/dL (8.5-10.1)
[2021-01-04 11:33] LABS: ALBUMIN 3.3 g/dl (3.4-5.0); BLOOD UREA NITROGEN 12.7 mg/dL (7-18)
[2021-01-04 11:36] LABS: BILIRUBIN,TOTAL 0.7 mg/dL (0.2-1)
[2021-01-04 11:44] LABS: HIV INTERPRETATION NEGATIVE (NEGATIVE)
[2021-01-04] MEDS: PRENATAL VITAMINS W/ FOLIC ACID TABLET (FP) PO SCH (14:29)
[2021-01-04] MEDS: MELATONIN 5 MG TABLETS PO SCH (22:53)
[2021-01-04] MEDS: THIAMINE HCL 100 MG TABLET (FP) PO SCH (22:53)
[2021-01-05] MEDS: LORazepam 1 MG TABLET PO SCH ×4 (06:35→22:14)
[2021-01-05] MEDS ORDERED: METHADONE HCL 10 MG TABLET (FOR DETOX USE ONLY) PO ONE (10:00)
[2021-01-05] MEDS: PRENATAL VITAMINS W/ FOLIC ACID TABLET (FP) PO SCH (10:28)
[2021-01-05] MEDS: SERTRALINE HCL 50 MG TABLET (FP) PO SCH (10:29)
[2021-01-05] MEDS: GABAPENTIN 300 MG CAPSULE PO SCH ×2 (15:38→22:14)
[2021-01-05] MEDS: MAGNESIUM HYDROX 2400MG/30ML ORAL SUSPENSION 30 ML CUP PO PRN (18:00)
[2021-01-05] MEDS: THIAMINE HCL 100 MG TABLET (FP) PO SCH (22:14)
[2021-01-05] MEDS: MELATONIN 5 MG TABLETS PO SCH (22:14)
[2021-01-06] MEDS ORDERED: LORazepam 0.5 MG TABLET PO PRN
[2021-01-06] MEDS: GABAPENTIN 300 MG CAPSULE PO SCH ×3 (06:09→22:10)
[2021-01-06] MEDS: LORazepam 0.5 MG TABLET PO SCH ×4 (06:09→22:11)
[2021-01-06] MEDS: MAGNESIUM HYDROX 2400MG/30ML ORAL SUSPENSION 30 ML CUP PO PRN (09:19)
[2021-01-06] MEDS ORDERED: METHADONE HCL 5 MG TABLET PO ONE (10:00)
[2021-01-06] MEDS: SERTRALINE HCL 50 MG TABLET (FP) PO SCH (10:14)
[2021-01-06] MEDS: PRENATAL VITAMINS W/ FOLIC ACID TABLET (FP) PO SCH (10:14)
[2021-01-06] MEDS ORDERED: NICOTINE POLACRILEX 4 MG GUM BUC PRN (13:57)
[2021-01-06] MEDS: METHOCARBAMOL 500 MG TABLET PO PRN ×2 (15:37→22:11)
[2021-01-06] MEDS: MELATONIN 5 MG TABLETS PO SCH (22:10)
[2021-01-06] MEDS: THIAMINE HCL 100 MG TABLET (FP) PO SCH (22:10)
[2021-01-07] MEDS ORDERED: LORazepam 0.5 MG TABLET PO ONE (05:00)
[2021-01-07] MEDS: METHOCARBAMOL 500 MG TABLET PO PRN (05:34)
[2021-01-07] MEDS: GABAPENTIN 300 MG CAPSULE PO SCH (05:34)
[2021-01-07 06:21] VITALS: BP 106/60; PULSE 64; TEMP 97.6
== END 2021-01-07 08:51 | disposition home or self-care (01) | DRG 773 ==
LOC: YASAS 18:27 → Y3N 01-04 12:48
PROVIDERS: ADMIT Allergy & Immunology; ATTEND Allergy & Immunology
PROC: HZ2ZZZZ Detoxification Services for Substance Abuse Treatment (ICD-10-PCS; principal; 2021-01-04)
DX: F11.23 Opioid dependence with withdrawal (principal); F10.230 Alcohol dependence with withdrawal, uncomplicated; F17.210 Nicotine dependence, cigarettes, uncomplicated; F19.282 Other psychoactive substance dependence with psychoactive substance-induced sleep disorder; F19.280 Other psychoactive substance dependence with psychoactive substance-induced anxiety disorder; F19.24 Other psychoactive substance dependence with psychoactive substance-induced mood disorder; F43.10 Post-traumatic stress disorder, unspecified; F41.8 Other specified anxiety disorders; F32.9 Major depressive disorder, single episode, unspecified; B18.2 Chronic viral hepatitis C; R74.8 Abnormal levels of other serum enzymes; Z62.810 Personal history of physical and sexual abuse in childhood; Z56.0 Unemployment, unspecified; Z59.0 Homelessness
CPT/HCPCS: 36415; 80053; 85027; 86780; 87389; C9803; U0003

== ENCOUNTER 2021-02-12 15:47 | Inpatient (IN) | payer OTHER ==
[2021-02-12 17:01] VITALS: BMI 30.4
[2021-02-12] MEDS ORDERED: MENTHOL/PHENOL 1 EACH UD MM PRN (18:24)
[2021-02-12] MEDS ORDERED: ACETAMINOPHEN 325 MG TABLET (FP) PO PRN ×2 (18:24)
[2021-02-12] MEDS ORDERED: diazePAM 5 MG TABLET PO ONE (18:24)
[2021-02-12] MEDS ORDERED: MAGNESIUM CITRATE 300 ML BOTTLE PO PRN (18:24)
[2021-02-12] MEDS ORDERED: NICOTINE POLACRILEX 4 MG GUM BUC PRN (18:24)
[2021-02-12] MEDS ORDERED: cloNIDine HCL 0.1 MG TABLET PO PRN (18:24)
[2021-02-12] MEDS ORDERED: METHADONE HCL 10 MG TABLET (FOR DETOX USE ONLY) PO ONE (18:24)
[2021-02-12] MEDS ORDERED: MAG HYDROX/AL HYDROX/SIMETH 30 ML UNIT-DOSE CUP PO PRN (18:24)
[2021-02-12] MEDS ORDERED: ONDANSETRON *ODT* 4 MG TABLET SL PRN (18:24)
[2021-02-12] MEDS ORDERED: BISMUTH SUBSALICYLATE 524 MG/30 ML UD PO PRN (18:24)
[2021-02-12] MEDS ORDERED: P-EPHED 60MG/TRIPROLIDI 2.5MG TABLET PO PRN (18:24)
[2021-02-12] MEDS ORDERED: MAGNESIUM HYDROX 2400MG/30ML ORAL SUSPENSION 30 ML CUP PO PRN (18:24)
[2021-02-12] MEDS: MELATONIN 5 MG TABLETS PO SCH (22:19)
[2021-02-12] MEDS: THIAMINE HCL 100 MG TABLET (FP) PO SCH (22:19)
[2021-02-12] MEDS: diazePAM 5 MG TABLET PO SCH (22:19)
[2021-02-13] MEDS: diazePAM 5 MG TABLET PO SCH ×4 (06:44→22:06)
[2021-02-13] MEDS ORDERED: METHADONE HCL 10 MG TABLET (FOR DETOX USE ONLY) ONE (08:33)
[2021-02-13] MEDS ORDERED: METHADONE HCL 5 MG TABLET (FOR DETOX USE ONLY) ONE (08:33)
[2021-02-13] MEDS ORDERED: METHADONE (DETOX) 20 MG, METHADONE (DETOX) 5 MG PO ONE (10:00)
[2021-02-13] MEDS: PRENATAL VITAMINS W/ FOLIC ACID TABLET (FP) PO SCH (10:03)
[2021-02-13] MEDS: NICOTINE 21 MG/24 HOURS TOPICAL PATCH TD SCH (10:03)
[2021-02-13] MEDS: METHOCARBAMOL 500 MG TABLET PO PRN (10:06)
[2021-02-13] MEDS: GABAPENTIN 300 MG CAPSULE PO SCH ×2 (14:33→22:06)
[2021-02-13] MEDS: diazePAM 5 MG TABLET PO PRN (14:35)
[2021-02-13] MEDS: MELATONIN 5 MG TABLETS PO SCH (22:06)
[2021-02-13] MEDS: THIAMINE HCL 100 MG TABLET (FP) PO SCH (22:06)
[2021-02-14] MEDS: GABAPENTIN 300 MG CAPSULE PO SCH ×3 (05:54→21:58)
[2021-02-14] MEDS: diazePAM 5 MG TABLET PO SCH ×3 (05:54→21:58)
[2021-02-14] MEDS ORDERED: METHADONE HCL 10 MG TABLET (FOR DETOX USE ONLY) PO ONE (10:00)
[2021-02-14] MEDS: SERTRALINE HCL 50 MG TABLET (FP) PO SCH (10:38)
[2021-02-14] MEDS: NICOTINE 21 MG/24 HOURS TOPICAL PATCH TD SCH (10:39)
[2021-02-14] MEDS: PRENATAL VITAMINS W/ FOLIC ACID TABLET (FP) PO SCH (12:25)
[2021-02-14 16:28] LABS: ALBUMIN 3.7 g/dl (3.4-5.0); BLOOD UREA NITROGEN 10.3 mg/dL (7-18); CALCIUM 10.2 mg/dL (8.5-10.1); HEMATOCRIT 50.7 % (35.4-49); HEMOGLOBIN 17.2 GM/dL (11.7-16.9); MCH 30.7 pg (25.7-33.7); MCHC 33.8 g/dl (32.0-35.9); MEAN CELL VOLUME 90.8 fl (80-96); PLATELET COUNT 323 K/MM3 (134-434); RBC 5.58 M/mm3 (4.00-5.60); RDW 14.6 % (11.9-15.9); WHITE BLOOD COUNT 5.9 K/mm3 (4.0-10.0)
[2021-02-14 16:32] LABS: CREATININE 0.9 mg/dL (0.55-1.3)
[2021-02-14 16:33] LABS: BILIRUBIN,TOTAL 0.4 mg/dL (0.2-1); TOT PROT 8.7 g/dl (6.4-8.2)
[2021-02-14] MEDS: IBUPROFEN 400 MG TABLET (FP) PO PRN (21:09)
[2021-02-14] MEDS: MELATONIN 5 MG TABLETS PO SCH (21:58)
[2021-02-14] MEDS: THIAMINE HCL 100 MG TABLET (FP) PO SCH (21:59)
[2021-02-14 22:57] LABS: HIV INTERPRETATION NEGATIVE (NEGATIVE)
[2021-02-15] MEDS: diazePAM 5 MG TABLET PO SCH ×2 (06:06→17:34)
[2021-02-15] MEDS: GABAPENTIN 300 MG CAPSULE PO SCH ×3 (06:06→23:02)
[2021-02-15 06:10] LABS: SARS-CoV-2 NAA Not Detected (Not Detected)
[2021-02-15] MEDS ORDERED: METHADONE HCL 10 MG TABLET (FOR DETOX USE ONLY) ONE (09:34)
[2021-02-15] MEDS ORDERED: METHADONE HCL 5 MG TABLET (FOR DETOX USE ONLY) ONE (09:34)
[2021-02-15] MEDS ORDERED: METHADONE (DETOX) 10 MG, METHADONE (DETOX) 5 MG PO ONE (10:00)
[2021-02-15] MEDS: METHOCARBAMOL 500 MG TABLET PO PRN (10:27)
[2021-02-15] MEDS: PRENATAL VITAMINS W/ FOLIC ACID TABLET (FP) PO SCH (10:27)
[2021-02-15] MEDS: NICOTINE 21 MG/24 HOURS TOPICAL PATCH TD SCH (10:27)
[2021-02-15] MEDS: SERTRALINE HCL 50 MG TABLET (FP) PO SCH (10:28)
[2021-02-15] MEDS: hydrOXYzine PAMOATE 25 MG CAPSULE (FP) PO PRN ×3 (10:28→23:03)
[2021-02-15] MEDS: diazePAM 5 MG TABLET PO PRN (10:32)
[2021-02-15] MEDS: MELATONIN 5 MG TABLETS PO SCH (23:03)
[2021-02-15] MEDS: THIAMINE HCL 100 MG TABLET (FP) PO SCH (23:03)
[2021-02-15] MEDS: IBUPROFEN 400 MG TABLET (FP) PO PRN (23:04)
[2021-02-16] MEDS ORDERED: diazePAM 5 MG TABLET PO ONE (06:00)
[2021-02-16] MEDS: GABAPENTIN 300 MG CAPSULE PO SCH (06:56)
[2021-02-16 09:33] VITALS: TEMP 96.9
[2021-02-16] MEDS ORDERED: METHADONE HCL 10 MG TABLET (FOR DETOX USE ONLY) PO ONE (10:00)
[2021-02-16] MEDS: hydrOXYzine PAMOATE 25 MG CAPSULE (FP) PO PRN (10:18)
[2021-02-16] MEDS: SERTRALINE HCL 50 MG TABLET (FP) PO SCH (10:18)
[2021-02-16] MEDS: PRENATAL VITAMINS W/ FOLIC ACID TABLET (FP) PO SCH (10:18)
[2021-02-16] MEDS: METHOCARBAMOL 500 MG TABLET PO PRN (10:18)
[2021-02-16] MEDS: NICOTINE 21 MG/24 HOURS TOPICAL PATCH TD SCH (10:19)
[2021-02-16 11:03] VITALS: BP 111/60; PULSE 84
[2021-02-17] MEDS ORDERED: METHADONE HCL 5 MG TABLET (FOR DETOX USE ONLY) PO ONE (06:00)
== END 2021-02-16 11:28 | disposition home or self-care (01) | DRG 773 ==
LOC: YASAS 15:47 → Y6N 17:50
PROVIDERS: ADMIT Allergy & Immunology; ATTEND Allergy & Immunology
PROC: HZ2ZZZZ Detoxification Services for Substance Abuse Treatment (ICD-10-PCS; principal; 2021-02-12)
DX: F11.23 Opioid dependence with withdrawal (principal); F10.230 Alcohol dependence with withdrawal, uncomplicated; F14.10 Cocaine abuse, uncomplicated; F12.10 Cannabis abuse, uncomplicated; F17.210 Nicotine dependence, cigarettes, uncomplicated; F19.282 Other psychoactive substance dependence with psychoactive substance-induced sleep disorder; F19.24 Other psychoactive substance dependence with psychoactive substance-induced mood disorder; F43.10 Post-traumatic stress disorder, unspecified; F32.9 Major depressive disorder, single episode, unspecified; F41.8 Other specified anxiety disorders; B18.2 Chronic viral hepatitis C; R74.01 Elevation of levels of liver transaminase levels; Z62.810 Personal history of physical and sexual abuse in childhood; Z56.0 Unemployment, unspecified; Z59.0 Homelessness
CPT/HCPCS: 36415; 80053; 85027; 86780; 87389; 93005; 93010; C9803; U0003; U0005

== ENCOUNTER 2021-03-12 20:21 | Inpatient (IN) | payer OTHER ==
[2021-03-12 21:34] VITALS: BMI 31.8
[2021-03-13] MEDS ORDERED: MAG HYDROX/AL HYDROX/SIMETH 30 ML UNIT-DOSE CUP PO PRN (01:36)
[2021-03-13] MEDS ORDERED: METHADONE HCL 10 MG TABLET (FOR DETOX USE ONLY) PO ONE (01:36)
[2021-03-13] MEDS ORDERED: MENTHOL/PHENOL 1 EACH UD MM PRN (01:36)
[2021-03-13] MEDS ORDERED: BISMUTH SUBSALICYLATE 524 MG/30 ML PO PRN (01:36)
[2021-03-13] MEDS ORDERED: MAGNESIUM HYDROX 2400MG/30ML ORAL SUSPENSION 30 ML CUP PO PRN (01:36)
[2021-03-13] MEDS ORDERED: ACETAMINOPHEN 325 MG TABLET (FP) PO PRN ×2 (01:36)
[2021-03-13] MEDS ORDERED: DICYCLOMINE HCL 10 MG CAPSULE PO PRN (01:36)
[2021-03-13] MEDS ORDERED: P-EPHED 60MG/TRIPROLIDI 2.5MG TABLET PO PRN (01:36)
[2021-03-13] MEDS ORDERED: guaiFENesin 200 MG/10 ML 10 ML UNIT-DOSE CUPS PO PRN (01:36)
[2021-03-13] MEDS ORDERED: NALOXONE HCL 0.4 MG/ML VIAL IM PRN (01:36)
[2021-03-13] MEDS ORDERED: MAGNESIUM CITRATE 300 ML BOTTLE PO PRN (01:36)
[2021-03-13] MEDS ORDERED: NALOXONE (NARCAN) HCL 4 MG/0.1 ML SPRAY NS PRN (01:36)
[2021-03-13] MEDS ORDERED: LORazepam 1 MG TABLET PO PRN (01:36)
[2021-03-13] MEDS ORDERED: cloNIDine HCL 0.1 MG TABLET PO PRN (01:36)
[2021-03-13] MEDS ORDERED: IBUPROFEN 400 MG TABLET (FP) PO ONE (01:47)
[2021-03-13] MEDS ORDERED: ONDANSETRON *ODT* 4 MG TABLET ONE (01:51)
[2021-03-13] MEDS: IBUPROFEN 400 MG TABLET (FP) PO PRN (02:22)
[2021-03-13] MEDS: ONDANSETRON *ODT* 4 MG TABLET SL PRN (02:23)
[2021-03-13] MEDS: CEPHALEXIN MONOHYDRATE 500 MG CAPSULE (UD) PO SCH ×4 (05:42→23:00)
[2021-03-13] MEDS: LORazepam 2 MG TABLET PO SCH ×4 (05:42→22:47)
[2021-03-13] MEDS: METHOCARBAMOL 500 MG TABLET PO PRN (10:30)
[2021-03-13] MEDS: PRENATAL VITAMINS W/ FOLIC ACID TABLET (FP) PO SCH (10:30)
[2021-03-13] MEDS: NICOTINE 21 MG/24 HOURS TOPICAL PATCH TD SCH (10:30)
[2021-03-13] MEDS: SERTRALINE HCL 50 MG TABLET (FP) PO SCH (10:32)
[2021-03-13] MEDS: GABAPENTIN 300 MG CAPSULE PO SCH ×2 (13:48→22:47)
[2021-03-13] MEDS: THIAMINE HCL 100 MG TABLET (FP) PO SCH (22:47)
[2021-03-13] MEDS: MELATONIN 5 MG TABLETS PO SCH (23:52)
[2021-03-14] MEDS: CEPHALEXIN MONOHYDRATE 500 MG CAPSULE (UD) PO SCH ×3 (06:00→17:30)
[2021-03-14] MEDS: LORazepam 1 MG TABLET PO SCH ×4 (06:00→22:31)
[2021-03-14] MEDS: GABAPENTIN 300 MG CAPSULE PO SCH ×3 (06:00→22:31)
[2021-03-14] MEDS: METHOCARBAMOL 500 MG TABLET PO PRN ×3 (07:43→22:31)
[2021-03-14] MEDS ORDERED: METHADONE HCL 10 MG TABLET (FOR DETOX USE ONLY) ONE (08:51)
[2021-03-14] MEDS ORDERED: METHADONE HCL 5 MG TABLET (FOR DETOX USE ONLY) ONE (08:51)
[2021-03-14] MEDS ORDERED: METHADONE (DETOX) 20 MG, METHADONE (DETOX) 5 MG PO ONE (10:00)
[2021-03-14] MEDS: PRENATAL VITAMINS W/ FOLIC ACID TABLET (FP) PO SCH (10:16)
[2021-03-14] MEDS: SERTRALINE HCL 50 MG TABLET (FP) PO SCH (10:16)
[2021-03-14] MEDS: NICOTINE 21 MG/24 HOURS TOPICAL PATCH TD SCH (10:25)
[2021-03-14] MEDS: THIAMINE HCL 100 MG TABLET (FP) PO SCH (22:32)
[2021-03-14] MEDS: MELATONIN 5 MG TABLETS PO SCH (22:33)
[2021-03-15] MEDS ORDERED: LORazepam 0.5 MG TABLET PO PRN
[2021-03-15] MEDS: CEPHALEXIN MONOHYDRATE 500 MG CAPSULE (UD) PO SCH ×4 (00:56→18:02)
[2021-03-15] MEDS: METHOCARBAMOL 500 MG TABLET PO PRN ×2 (05:35→19:20)
[2021-03-15] MEDS: LORazepam 0.5 MG TABLET PO SCH ×4 (05:36→22:00)
[2021-03-15] MEDS: GABAPENTIN 300 MG CAPSULE PO SCH ×3 (05:36→22:01)
[2021-03-15] MEDS: SERTRALINE HCL 50 MG TABLET (FP) PO SCH (09:33)
[2021-03-15] MEDS ORDERED: METHADONE HCL 10 MG TABLET (FOR DETOX USE ONLY) PO ONE (10:00)
[2021-03-15] MEDS: PRENATAL VITAMINS W/ FOLIC ACID TABLET (FP) PO SCH (10:38)
[2021-03-15] MEDS: NICOTINE 21 MG/24 HOURS TOPICAL PATCH TD SCH (10:39)
[2021-03-15 12:45] LABS: BASO % 0.4 % (0-2.0); EOS % 1.9 % (0-4.5); HEMATOCRIT 45.9 % (35.4-49); HEMOGLOBIN 15.9 GM/dL (11.7-16.9); LYMPH % 28.3 % (8-40); MCH 31.2 pg (25.7-33.7); MCHC 34.7 g/dl (32.0-35.9); MEAN PLT VOLUME 7.1 fl (7.5-11.1); MONO % 8.3 % (3.8-10.2); NEUT % 61.1 % (42.8-82.8); PLATELET COUNT 254 K/MM3 (134-434)
[2021-03-15 13:03] LABS: ALBUMIN 3.8 g/dl (3.4-5.0); BLOOD UREA NITROGEN 10.5 mg/dL (7-18)
[2021-03-15 13:04] LABS: BILIRUBIN,TOTAL 0.8 mg/dL (0.2-1); TOT PROT 8.4 g/dl (6.4-8.2)
[2021-03-15 13:06] LABS: CREATININE 0.8 mg/dL (0.55-1.3)
[2021-03-15] MEDS: NICOTINE POLACRILEX 2 MG GUM BUC PRN ×2 (13:06→19:18)
[2021-03-15] MEDS: IBUPROFEN 400 MG TABLET (FP) PO PRN (19:19)
[2021-03-15] MEDS: THIAMINE HCL 100 MG TABLET (FP) PO SCH (22:00)
[2021-03-15] MEDS: MELATONIN 5 MG TABLETS PO SCH (22:00)
[2021-03-16] MEDS: CEPHALEXIN MONOHYDRATE 500 MG CAPSULE (UD) PO SCH ×3 (00:09→12:10)
[2021-03-16] MEDS: IBUPROFEN 400 MG TABLET (FP) PO PRN (03:07)
[2021-03-16] MEDS: METHOCARBAMOL 500 MG TABLET PO PRN ×2 (03:07→10:04)
[2021-03-16] MEDS ORDERED: LORazepam 0.5 MG TABLET PO ONE (05:00)
[2021-03-16] MEDS: GABAPENTIN 300 MG CAPSULE PO SCH (05:57)
[2021-03-16] MEDS: ONDANSETRON *ODT* 4 MG TABLET SL PRN (06:33)
[2021-03-16 09:11] VITALS: BP 133/90; PULSE 68; TEMP 97.1
[2021-03-16] MEDS ORDERED: METHADONE HCL 5 MG TABLET (FOR DETOX USE ONLY) ONE (09:38)
[2021-03-16] MEDS ORDERED: METHADONE HCL 10 MG TABLET (FOR DETOX USE ONLY) ONE (09:38)
[2021-03-16] MEDS ORDERED: METHADONE (DETOX) 10 MG, METHADONE (DETOX) 5 MG PO ONE (10:00)
[2021-03-16] MEDS: PRENATAL VITAMINS W/ FOLIC ACID TABLET (FP) PO SCH (10:04)
[2021-03-16] MEDS: SERTRALINE HCL 50 MG TABLET (FP) PO SCH (10:04)
[2021-03-16] MEDS: NICOTINE 21 MG/24 HOURS TOPICAL PATCH TD SCH (10:04)
[2021-03-16 14:06] LABS: SARS-CoV-2 NAA Not Detected (Not Detected)
[2021-03-17] MEDS ORDERED: METHADONE HCL 10 MG TABLET (FOR DETOX USE ONLY) PO ONE (10:00)
[2021-03-18] MEDS ORDERED: METHADONE HCL 5 MG TABLET (FOR DETOX USE ONLY) PO ONE (06:00)
== END 2021-03-16 12:44 | disposition left against medical advice (07) | DRG 770 ==
LOC: YASAS 20:21 → Y6N 03-13 02:12
PROVIDERS: ADMIT Allergy & Immunology; ATTEND Allergy & Immunology
PROC: HZ2ZZZZ Detoxification Services for Substance Abuse Treatment (ICD-10-PCS; principal; 2021-03-13)
DX: F11.23 Opioid dependence with withdrawal (principal); F10.230 Alcohol dependence with withdrawal, uncomplicated; F17.210 Nicotine dependence, cigarettes, uncomplicated; F19.282 Other psychoactive substance dependence with psychoactive substance-induced sleep disorder; F19.280 Other psychoactive substance dependence with psychoactive substance-induced anxiety disorder; F19.24 Other psychoactive substance dependence with psychoactive substance-induced mood disorder; F41.8 Other specified anxiety disorders; F32.9 Major depressive disorder, single episode, unspecified; F43.10 Post-traumatic stress disorder, unspecified; L03.011 Cellulitis of right finger; B18.2 Chronic viral hepatitis C; R25.3 Fasciculation; R63.8 Other symptoms and signs concerning food and fluid intake; Z56.0 Unemployment, unspecified; Z59.0 Homelessness
CPT/HCPCS: 80053; 85025; 86780; C9803; J0735; Q0162; U0003; U0005

== ENCOUNTER 2021-11-06 11:33 | Inpatient (IN) | payer OTHER ==
[2021-11-06] MEDS ORDERED: MENTHOL/PHENOL 1 EACH UD MM PRN (12:13)
[2021-11-06] MEDS ORDERED: ACETAMINOPHEN 325 MG TABLET (FP) PO PRN (12:13)
[2021-11-06] MEDS ORDERED: LORazepam 1 MG TABLET PO PRN (12:13)
[2021-11-06] MEDS ORDERED: MAGNESIUM HYDROX 2400MG/30ML ORAL SUSPENSION 30 ML CUP PO PRN (12:13)
[2021-11-06] MEDS ORDERED: MAGNESIUM CITRATE 300 ML BOTTLE PO PRN (12:13)
[2021-11-06] MEDS ORDERED: ONDANSETRON *ODT* 4 MG TABLET SL PRN (12:13)
[2021-11-06] MEDS ORDERED: BISMUTH SUBSALICYLATE 524 MG/30 ML PO PRN (12:13)
[2021-11-06] MEDS ORDERED: MAG HYDROX/AL HYDROX/SIMETH 30 ML UNIT-DOSE CUP PO PRN (12:13)
[2021-11-06] MEDS ORDERED: IBUPROFEN 400 MG TABLET (FP) PO PRN (12:13)
[2021-11-06 13:23] VITALS: BMI 29.2
[2021-11-06] MEDS: hydrOXYzine PAMOATE 25 MG CAPSULE (FP) PO SCH ×3 (15:55→22:30)
[2021-11-06] MEDS: METHOCARBAMOL 500 MG TABLET PO PRN (15:57)
[2021-11-06 15:59] LABS: HEMOGLOBIN 16.6 GM/dL (11.7-16.9); MCH 30.4 pg (25.7-33.7); MCHC 33.3 g/dl (32.0-35.9); MEAN CELL VOLUME 91.4 fl (80-96); MEAN PLT VOLUME 7.1 fl (7.5-11.1); PLATELET COUNT 347 10^3/uL (134-434); RBC 5.47 M/mm3 (4.00-5.60); RDW 13.7 % (11.9-15.9); WHITE BLOOD COUNT 6.4 K/mm3 (4.0-10.0)
[2021-11-06 16:05] LABS: ALBUMIN 3.8 g/dl (3.4-5.0); CALCIUM 9.2 mg/dL (8.5-10.1)
[2021-11-06 16:08] LABS: CREATININE 1.5 mg/dL (0.55-1.3)
[2021-11-06 16:10] LABS: BILIRUBIN,TOTAL 0.4 mg/dL (0.2-1)
[2021-11-06] MEDS: LORazepam 2 MG TABLET PO SCH ×2 (18:16→22:29)
[2021-11-06] MEDS: MELATONIN 5 MG TABLETS PO SCH (22:29)
[2021-11-06] MEDS: GABAPENTIN 300 MG CAPSULE PO SCH (22:29)
[2021-11-06] MEDS: THIAMINE HCL 100 MG TABLET (FP) PO SCH (22:30)
[2021-11-07] MEDS: LORazepam 2 MG TABLET PO SCH ×4 (05:33→22:21)
[2021-11-07] MEDS: GABAPENTIN 300 MG CAPSULE PO SCH ×3 (05:33→22:21)
[2021-11-07] MEDS: hydrOXYzine PAMOATE 25 MG CAPSULE (FP) PO SCH ×5 (05:33→22:21)
[2021-11-07] MEDS: SERTRALINE HCL 50 MG TABLET (FP) PO SCH (10:25)
[2021-11-07] MEDS: PRENATAL VITAMINS W/ FOLIC ACID TABLET (FP) PO SCH (10:25)
[2021-11-07] MEDS: THIAMINE HCL 100 MG TABLET (FP) PO SCH (22:21)
[2021-11-07] MEDS: MELATONIN 5 MG TABLETS PO SCH (22:22)
[2021-11-08] MEDS: LORazepam 1 MG TABLET PO SCH ×4 (05:39→22:23)
[2021-11-08] MEDS: hydrOXYzine PAMOATE 25 MG CAPSULE (FP) PO SCH ×5 (05:39→22:24)
[2021-11-08] MEDS: GABAPENTIN 300 MG CAPSULE PO SCH ×3 (05:39→22:24)
[2021-11-08] MEDS: NICOTINE 10 MG CARTRIDGE (INHALER) IH PRN (09:44)
[2021-11-08] MEDS: NICOTINE POLACRILEX 2 MG GUM BUC PRN ×3 (09:45→22:40)
[2021-11-08] MEDS: PRENATAL VITAMINS W/ FOLIC ACID TABLET (FP) PO SCH (10:19)
[2021-11-08] MEDS: SERTRALINE HCL 50 MG TABLET (FP) PO SCH (10:19)
[2021-11-08] MEDS: METHOCARBAMOL 500 MG TABLET PO PRN (14:51)
[2021-11-08] MEDS: ACETAMINOPHEN 325 MG TABLET (FP) PO PRN (18:02)
[2021-11-08] MEDS: THIAMINE HCL 100 MG TABLET (FP) PO SCH (22:24)
[2021-11-08] MEDS: MELATONIN 5 MG TABLETS PO SCH (22:24)
[2021-11-09] MEDS ORDERED: LORazepam 0.5 MG TABLET PO PRN
[2021-11-09] MEDS: GABAPENTIN 300 MG CAPSULE PO SCH ×3 (05:35→22:41)
[2021-11-09] MEDS: LORazepam 0.5 MG TABLET PO SCH ×4 (05:35→22:42)
[2021-11-09] MEDS: hydrOXYzine PAMOATE 25 MG CAPSULE (FP) PO SCH ×5 (05:37→22:47)
[2021-11-09] MEDS: PRENATAL VITAMINS W/ FOLIC ACID TABLET (FP) PO SCH (10:28)
[2021-11-09] MEDS: METHOCARBAMOL 500 MG TABLET PO PRN (10:29)
[2021-11-09] MEDS: SERTRALINE HCL 50 MG TABLET (FP) PO SCH (10:29)
[2021-11-09] MEDS: NICOTINE POLACRILEX 2 MG GUM BUC PRN ×3 (10:31→18:23)
[2021-11-09] MEDS: NICOTINE 10 MG CARTRIDGE (INHALER) IH PRN (10:32)
[2021-11-09 11:25] LABS: HEMATOCRIT 51.3 % (35.4-49); HEMOGLOBIN 17.2 GM/dL (11.7-16.9); MCH 30.2 pg (25.7-33.7); MCHC 33.6 g/dl (32.0-35.9); MEAN CELL VOLUME 90.1 fl (80-96); MEAN PLT VOLUME 7.2 fl (7.5-11.1); PLATELET COUNT 363 10^3/uL (134-434); RDW 13.4 % (11.9-15.9); WHITE BLOOD COUNT 5.8 K/mm3 (4.0-10.0)
[2021-11-09 11:26] LABS: CALCIUM 9.7 mg/dL (8.5-10.1)
[2021-11-09 11:27] LABS: ALBUMIN 4.2 g/dl (3.4-5.0); BLOOD UREA NITROGEN 12.2 mg/dL (7-18)
[2021-11-09 11:28] LABS: CREATININE 0.9 mg/dL (0.55-1.3)
[2021-11-09 11:30] LABS: BILIRUBIN,TOTAL 0.7 mg/dL (0.2-1); TOT PROT 8.2 g/dl (6.4-8.2)
[2021-11-09 11:37] LABS: INR 1.13 (0.83-1.09)
[2021-11-09] MEDS: MELATONIN 5 MG TABLETS PO SCH (22:41)
[2021-11-09] MEDS: THIAMINE HCL 100 MG TABLET (FP) PO SCH (22:41)
[2021-11-10] MEDS: ACETAMINOPHEN 325 MG TABLET (FP) PO PRN (00:34)
[2021-11-10] MEDS: METHOCARBAMOL 500 MG TABLET PO PRN (00:34)
[2021-11-10] MEDS ORDERED: LORazepam 0.5 MG TABLET PO ONE (05:00)
[2021-11-10] MEDS: GABAPENTIN 300 MG CAPSULE PO SCH ×3 (05:24→22:07)
[2021-11-10] MEDS: hydrOXYzine PAMOATE 25 MG CAPSULE (FP) PO SCH ×5 (05:26→22:07)
[2021-11-10] MEDS: PRENATAL VITAMINS W/ FOLIC ACID TABLET (FP) PO SCH (10:24)
[2021-11-10] MEDS: SERTRALINE HCL 50 MG TABLET (FP) PO SCH (10:24)
[2021-11-10] MEDS: NICOTINE POLACRILEX 2 MG GUM BUC PRN ×2 (10:25→14:28)
[2021-11-10] MEDS ORDERED: SUVOREXANT 10 MG TABLET PO PRN (22:00)
[2021-11-10] MEDS ORDERED: diphenhydrAMINE HCL 25 MG CAPSULE (FP) PO PRN (22:00)
[2021-11-10] MEDS: MELATONIN 5 MG TABLETS PO SCH (22:07)
[2021-11-10] MEDS: THIAMINE HCL 100 MG TABLET (FP) PO SCH (22:07)
[2021-11-11] MEDS: hydrOXYzine PAMOATE 25 MG CAPSULE (FP) PO SCH ×3 (05:44→13:19)
[2021-11-11] MEDS: GABAPENTIN 300 MG CAPSULE PO SCH ×2 (05:44→13:19)
[2021-11-11] MEDS: SERTRALINE HCL 50 MG TABLET (FP) PO SCH (10:09)
[2021-11-11] MEDS: METHOCARBAMOL 500 MG TABLET PO PRN (10:11)
[2021-11-11] MEDS: PRENATAL VITAMINS W/ FOLIC ACID TABLET (FP) PO SCH (10:11)
[2021-11-11] MEDS: NICOTINE POLACRILEX 2 MG GUM BUC PRN ×2 (10:11→13:21)
[2021-11-11 15:50] VITALS: TEMP 97.5
[2021-11-11 18:04] VITALS: BP 140/90; PULSE 83
== END 2021-11-11 16:39 | disposition other institution (70) | DRG 773 ==
LOC: YASAS 11:33 → Y3N 13:36
PROVIDERS: ADMIT Allergy & Immunology; ATTEND Allergy & Immunology
PROC: HZ2ZZZZ Detoxification Services for Substance Abuse Treatment (ICD-10-PCS; principal; 2021-11-06)
DX: F11.23 Opioid dependence with withdrawal (principal); F10.230 Alcohol dependence with withdrawal, uncomplicated; F12.20 Cannabis dependence, uncomplicated; F17.210 Nicotine dependence, cigarettes, uncomplicated; F19.282 Other psychoactive substance dependence with psychoactive substance-induced sleep disorder; F19.280 Other psychoactive substance dependence with psychoactive substance-induced anxiety disorder; F41.8 Other specified anxiety disorders; F32.A Depression, unspecified; F43.10 Post-traumatic stress disorder, unspecified; K74.60 Unspecified cirrhosis of liver; R63.8 Other symptoms and signs concerning food and fluid intake; R74.01 Elevation of levels of liver transaminase levels; Z86.19 Personal history of other infectious and parasitic diseases
CPT/HCPCS: 36415; 80053; 85027; 85610; 86780; C9803; U0003; U0005

== ENCOUNTER 2021-11-11 13:56 | Inpatient (IN) | payer OTHER ==
[2021-11-11] MEDS ORDERED: MENTHOL/PHENOL 1 EACH UD MM PRN (19:46)
[2021-11-11] MEDS ORDERED: MAGNESIUM CITRATE 300 ML BOTTLE PO PRN (19:46)
[2021-11-11] MEDS ORDERED: MAGNESIUM HYDROX 2400MG/30ML ORAL SUSPENSION 30 ML CUP PO PRN (19:46)
[2021-11-11] MEDS ORDERED: ACETAMINOPHEN 325 MG TABLET (FP) PO PRN (19:46)
[2021-11-11] MEDS ORDERED: LOPERAMIDE HCL 2 MG CAPSULE PO PRN (19:46)
[2021-11-11] MEDS ORDERED: guaiFENesin 200 MG/10 ML 10 ML UNIT-DOSE CUPS PO PRN (19:46)
[2021-11-11] MEDS ORDERED: MAG HYDROX/AL HYDROX/SIMETH 30 ML UNIT-DOSE CUP PO PRN (19:46)
[2021-11-11] MEDS ORDERED: P-EPHED 60MG/TRIPROLIDI 2.5MG TABLET PO PRN (19:46)
[2021-11-11] MEDS: hydrOXYzine PAMOATE 25 MG CAPSULE (FP) PO PRN (20:08)
[2021-11-11] MEDS: IBUPROFEN 400 MG TABLET (FP) PO PRN (20:08)
[2021-11-11] MEDS: METHOCARBAMOL 500 MG TABLET PO PRN (20:08)
[2021-11-11] MEDS: THIAMINE HCL 100 MG TABLET (FP) PO SCH (21:32)
[2021-11-11] MEDS ORDERED: GABAPENTIN 300 MG CAPSULE PO ONE (22:00)
[2021-11-11] MEDS ORDERED: MELATONIN 5 MG TABLETS PO SCH (22:00)
[2021-11-12] MEDS: hydrOXYzine PAMOATE 25 MG CAPSULE (FP) PO PRN ×2 (06:16→13:42)
[2021-11-12] MEDS: METHOCARBAMOL 500 MG TABLET PO PRN ×2 (06:16→13:43)
[2021-11-12] MEDS ORDERED: GABAPENTIN 100 MG CAPSULE PO ONE (08:52)
[2021-11-12] MEDS: SERTRALINE HCL 50 MG TABLET (FP) PO SCH (09:31)
[2021-11-12] MEDS: PRENATAL VITAMINS W/ FOLIC ACID TABLET (FP) PO SCH (09:31)
[2021-11-12] MEDS: IBUPROFEN 400 MG TABLET (FP) PO PRN (09:32)
[2021-11-12] MEDS: NICOTINE POLACRILEX 2 MG GUM BUC PRN ×2 (13:42→21:11)
[2021-11-12] MEDS: GABAPENTIN 300 MG CAPSULE PO SCH ×2 (13:43→21:08)
[2021-11-12] MEDS: THIAMINE HCL 100 MG TABLET (FP) PO SCH (21:08)
[2021-11-12] MEDS ORDERED: diphenhydrAMINE HCL 25 MG CAPSULE (FP) PO ONE (21:08)
[2021-11-12] MEDS ORDERED: diphenhydrAMINE HCL 50 MG CAPSULE PO PRN (22:00)
[2021-11-13] MEDS: NICOTINE POLACRILEX 2 MG GUM BUC PRN ×4 (06:12→21:55)
[2021-11-13] MEDS: GABAPENTIN 300 MG CAPSULE PO SCH ×2 (06:12→15:03)
[2021-11-13] MEDS: hydrOXYzine PAMOATE 25 MG CAPSULE (FP) PO PRN (10:05)
[2021-11-13] MEDS: SERTRALINE HCL 50 MG TABLET (FP) PO SCH (10:05)
[2021-11-13] MEDS: PRENATAL VITAMINS W/ FOLIC ACID TABLET (FP) PO SCH (10:05)
[2021-11-13] MEDS: IBUPROFEN 400 MG TABLET (FP) PO PRN (10:05)
[2021-11-13] MEDS ORDERED: NALTREXONE HCL 50 MG TABLET PO SCH (11:30)
[2021-11-13] MEDS ORDERED: diphenhydrAMINE HCL 25 MG CAPSULE (FP) PO ONE (19:31)
[2021-11-13] MEDS: SUVOREXANT 10 MG TABLET PO PRN (21:36)
[2021-11-13] MEDS: THIAMINE HCL 100 MG TABLET (FP) PO SCH (21:37)
[2021-11-13] MEDS: GABAPENTIN 400 MG CAPSULE PO SCH (21:37)
[2021-11-13] MEDS: METHOCARBAMOL 500 MG TABLET PO PRN (21:37)
[2021-11-14] MEDS: NICOTINE POLACRILEX 2 MG GUM BUC PRN ×3 (06:22→14:15)
[2021-11-14] MEDS: GABAPENTIN 400 MG CAPSULE PO SCH (06:23)
[2021-11-14] MEDS: METHOCARBAMOL 500 MG TABLET PO PRN (06:23)
[2021-11-14] MEDS: SERTRALINE HCL 50 MG TABLET (FP) PO SCH (10:11)
[2021-11-14] MEDS: PRENATAL VITAMINS W/ FOLIC ACID TABLET (FP) PO SCH (10:11)
[2021-11-14] MEDS: hydrOXYzine PAMOATE 25 MG CAPSULE (FP) PO PRN (10:13)
[2021-11-14] MEDS: IBUPROFEN 400 MG TABLET (FP) PO PRN (10:14)
[2021-11-14] MEDS ORDERED: GABAPENTIN 400 MG CAPSULE PO SCH (12:26)
[2021-11-14] MEDS ORDERED: GABAPENTIN 100 MG CAPSULE ONE ×2 (13:56→20:24)
[2021-11-14] MEDS ORDERED: GABAPENTIN 400 MG CAPSULE ONE ×2 (13:56→20:24)
[2021-11-14] MEDS: GABAPENTIN 400 MG, GABAPENTIN 100 MG PO SCH ×2 (14:14→21:22)
[2021-11-14] MEDS: METHOCARBAMOL 750 MG TAB PO PRN (14:15)
[2021-11-14] MEDS: SUVOREXANT 10 MG TABLET PO PRN (21:22)
[2021-11-14] MEDS: THIAMINE HCL 100 MG TABLET (FP) PO SCH (21:23)
[2021-11-15] MEDS ORDERED: GABAPENTIN 400 MG CAPSULE ONE ×3 (03:44→19:59)
[2021-11-15] MEDS ORDERED: GABAPENTIN 100 MG CAPSULE ONE ×3 (03:44→19:59)
[2021-11-15] MEDS: GABAPENTIN 400 MG, GABAPENTIN 100 MG PO SCH ×3 (06:59→21:39)
[2021-11-15] MEDS: NICOTINE POLACRILEX 2 MG GUM BUC PRN ×4 (07:00→21:39)
[2021-11-15] MEDS: hydrOXYzine PAMOATE 25 MG CAPSULE (FP) PO PRN (09:51)
[2021-11-15] MEDS: SERTRALINE HCL 50 MG TABLET (FP) PO SCH (09:51)
[2021-11-15] MEDS: PRENATAL VITAMINS W/ FOLIC ACID TABLET (FP) PO SCH (09:51)
[2021-11-15] MEDS: METHOCARBAMOL 750 MG TAB PO PRN ×2 (09:51→21:39)
[2021-11-15] MEDS: SUVOREXANT 10 MG TABLET PO PRN (21:38)
[2021-11-15] MEDS: THIAMINE HCL 100 MG TABLET (FP) PO SCH (21:39)
[2021-11-16] MEDS ORDERED: GABAPENTIN 100 MG CAPSULE ONE ×3 (03:42→20:55)
[2021-11-16] MEDS ORDERED: GABAPENTIN 400 MG CAPSULE ONE ×3 (03:43→20:55)
[2021-11-16] MEDS: NICOTINE POLACRILEX 2 MG GUM BUC PRN ×3 (06:46→22:05)
[2021-11-16] MEDS: GABAPENTIN 400 MG, GABAPENTIN 100 MG PO SCH ×3 (06:46→22:57)
[2021-11-16] MEDS: PRENATAL VITAMINS W/ FOLIC ACID TABLET (FP) PO SCH (09:38)
[2021-11-16] MEDS: SERTRALINE HCL 50 MG TABLET (FP) PO SCH (09:38)
[2021-11-16] MEDS: hydrOXYzine PAMOATE 25 MG CAPSULE (FP) PO PRN (09:40)
[2021-11-16] MEDS: METHOCARBAMOL 750 MG TAB PO PRN (09:40)
[2021-11-16] MEDS: THIAMINE HCL 100 MG TABLET (FP) PO SCH (22:04)
[2021-11-16] MEDS: SUVOREXANT 10 MG TABLET PO PRN (22:04)
[2021-11-17] MEDS: METHOCARBAMOL 750 MG TAB PO PRN ×2 (00:32→09:45)
[2021-11-17] MEDS: hydrOXYzine PAMOATE 25 MG CAPSULE (FP) PO PRN ×2 (00:32→09:45)
[2021-11-17] MEDS ORDERED: GABAPENTIN 400 MG CAPSULE ONE ×3 (04:06→19:28)
[2021-11-17] MEDS ORDERED: GABAPENTIN 100 MG CAPSULE ONE ×3 (04:06→19:27)
[2021-11-17] MEDS: GABAPENTIN 400 MG, GABAPENTIN 100 MG PO SCH ×3 (07:07→21:18)
[2021-11-17] MEDS: PRENATAL VITAMINS W/ FOLIC ACID TABLET (FP) PO SCH (09:44)
[2021-11-17] MEDS: SERTRALINE HCL 50 MG TABLET (FP) PO SCH (09:44)
[2021-11-17] MEDS: IBUPROFEN 400 MG TABLET (FP) PO PRN ×2 (09:46→21:20)
[2021-11-17] MEDS: NICOTINE POLACRILEX 2 MG GUM BUC PRN ×2 (09:47→13:33)
[2021-11-17] MEDS: BACLOFEN 10 MG TABLET (FP) PO SCH ×2 (13:32→21:18)
[2021-11-17] MEDS: THIAMINE HCL 100 MG TABLET (FP) PO SCH (21:18)
[2021-11-18] MEDS ORDERED: GABAPENTIN 100 MG CAPSULE ONE ×3 (03:39→19:49)
[2021-11-18] MEDS ORDERED: GABAPENTIN 400 MG CAPSULE ONE ×3 (03:40→19:49)
[2021-11-18] MEDS: BACLOFEN 10 MG TABLET (FP) PO SCH ×3 (06:33→21:50)
[2021-11-18] MEDS: GABAPENTIN 400 MG, GABAPENTIN 100 MG PO SCH ×3 (06:33→21:50)
[2021-11-18] MEDS: NICOTINE POLACRILEX 2 MG GUM BUC PRN ×3 (06:34→21:52)
[2021-11-18] MEDS: SERTRALINE HCL 50 MG TABLET (FP) PO SCH (10:01)
[2021-11-18] MEDS: PRENATAL VITAMINS W/ FOLIC ACID TABLET (FP) PO SCH (10:01)
[2021-11-18] MEDS: IBUPROFEN 400 MG TABLET (FP) PO PRN (10:33)
[2021-11-18] MEDS: THIAMINE HCL 100 MG TABLET (FP) PO SCH (21:50)
[2021-11-18] MEDS: hydrOXYzine PAMOATE 25 MG CAPSULE (FP) PO PRN (21:52)
[2021-11-19] MEDS ORDERED: GABAPENTIN 100 MG CAPSULE ONE ×2 (03:34→13:37)
[2021-11-19] MEDS ORDERED: GABAPENTIN 400 MG CAPSULE ONE ×2 (03:34→13:38)
[2021-11-19] MEDS: GABAPENTIN 400 MG, GABAPENTIN 100 MG PO SCH ×2 (06:21→13:43)
[2021-11-19] MEDS: BACLOFEN 10 MG TABLET (FP) PO SCH ×3 (06:21→21:29)
[2021-11-19] MEDS: NICOTINE POLACRILEX 2 MG GUM BUC PRN ×4 (06:21→21:31)
[2021-11-19] MEDS: PRENATAL VITAMINS W/ FOLIC ACID TABLET (FP) PO SCH (09:57)
[2021-11-19] MEDS: SERTRALINE HCL 50 MG TABLET (FP) PO SCH (09:57)
[2021-11-19] MEDS: IBUPROFEN 400 MG TABLET (FP) PO PRN (11:46)
[2021-11-19] MEDS: THIAMINE HCL 100 MG TABLET (FP) PO SCH (21:29)
[2021-11-19] MEDS: GABAPENTIN 300 MG CAPSULE PO SCH (21:29)
[2021-11-19] MEDS: hydrOXYzine PAMOATE 25 MG CAPSULE (FP) PO PRN (21:30)
[2021-11-20] MEDS: BACLOFEN 10 MG TABLET (FP) PO SCH ×2 (06:21→13:42)
[2021-11-20] MEDS: GABAPENTIN 300 MG CAPSULE PO SCH ×3 (06:21→21:44)
[2021-11-20] MEDS: NICOTINE POLACRILEX 2 MG GUM BUC PRN ×3 (06:22→21:46)
[2021-11-20] MEDS: ACAMPROSATE CALCIUM 333 MG TABLET.DR PO SCH ×3 (06:22→21:44)
[2021-11-20] MEDS: SERTRALINE HCL 50 MG TABLET (FP) PO SCH (09:24)
[2021-11-20] MEDS: PRENATAL VITAMINS W/ FOLIC ACID TABLET (FP) PO SCH (09:24)
[2021-11-20] MEDS: IBUPROFEN 400 MG TABLET (FP) PO PRN (09:25)
[2021-11-20] MEDS: THIAMINE HCL 100 MG TABLET (FP) PO SCH (21:44)
[2021-11-20] MEDS: SUVOREXANT 10 MG TABLET PO PRN (21:45)
[2021-11-21] MEDS: BACLOFEN 10 MG TABLET (FP) PO SCH ×4 (00:02→21:32)
[2021-11-21] MEDS: GABAPENTIN 300 MG CAPSULE PO SCH ×3 (06:23→21:32)
[2021-11-21] MEDS: ACAMPROSATE CALCIUM 333 MG TABLET.DR PO SCH ×3 (06:23→21:32)
[2021-11-21] MEDS: SERTRALINE HCL 50 MG TABLET (FP) PO SCH (10:19)
[2021-11-21] MEDS: NICOTINE POLACRILEX 2 MG GUM BUC PRN ×3 (10:19→21:34)
[2021-11-21] MEDS: PRENATAL VITAMINS W/ FOLIC ACID TABLET (FP) PO SCH (10:19)
[2021-11-21] MEDS: THIAMINE HCL 100 MG TABLET (FP) PO SCH (21:32)
[2021-11-21] MEDS: SUVOREXANT 10 MG TABLET PO PRN (21:32)
[2021-11-22] MEDS: ACAMPROSATE CALCIUM 333 MG TABLET.DR PO SCH ×3 (06:30→21:42)
[2021-11-22] MEDS: BACLOFEN 10 MG TABLET (FP) PO SCH ×3 (06:31→21:42)
[2021-11-22] MEDS: GABAPENTIN 300 MG CAPSULE PO SCH ×3 (06:31→21:42)
[2021-11-22] MEDS: NICOTINE POLACRILEX 2 MG GUM BUC PRN ×3 (06:32→22:40)
[2021-11-22] MEDS: PRENATAL VITAMINS W/ FOLIC ACID TABLET (FP) PO SCH (09:51)
[2021-11-22] MEDS: SERTRALINE HCL 50 MG TABLET (FP) PO SCH (09:51)
[2021-11-22] MEDS: hydrOXYzine PAMOATE 25 MG CAPSULE (FP) PO PRN (09:52)
[2021-11-22] MEDS: IBUPROFEN 400 MG TABLET (FP) PO PRN (09:52)
[2021-11-22] MEDS: THIAMINE HCL 100 MG TABLET (FP) PO SCH (21:42)
[2021-11-22] MEDS: SUVOREXANT 10 MG TABLET PO PRN (21:44)
[2021-11-23] MEDS: GABAPENTIN 300 MG CAPSULE PO SCH ×3 (06:49→21:35)
[2021-11-23] MEDS: ACAMPROSATE CALCIUM 333 MG TABLET.DR PO SCH ×3 (06:49→21:35)
[2021-11-23] MEDS: BACLOFEN 10 MG TABLET (FP) PO SCH ×3 (06:49→21:19)
[2021-11-23] MEDS: NICOTINE POLACRILEX 2 MG GUM BUC PRN ×3 (06:51→14:07)
[2021-11-23] MEDS: hydrOXYzine PAMOATE 25 MG CAPSULE (FP) PO PRN (10:20)
[2021-11-23] MEDS: PRENATAL VITAMINS W/ FOLIC ACID TABLET (FP) PO SCH (10:21)
[2021-11-23] MEDS: SERTRALINE HCL 50 MG TABLET (FP) PO SCH (10:21)
[2021-11-23] MEDS: IBUPROFEN 400 MG TABLET (FP) PO PRN ×2 (10:21→21:17)
[2021-11-23] MEDS: SUVOREXANT 10 MG TABLET PO PRN (21:17)
[2021-11-23] MEDS: THIAMINE HCL 100 MG TABLET (FP) PO SCH (21:19)
[2021-11-24] MEDS: BACLOFEN 10 MG TABLET (FP) PO SCH ×3 (06:50→21:27)
[2021-11-24] MEDS: GABAPENTIN 300 MG CAPSULE PO SCH ×3 (06:50→21:26)
[2021-11-24] MEDS: ACAMPROSATE CALCIUM 333 MG TABLET.DR PO SCH ×3 (06:51→23:19)
[2021-11-24] MEDS: SERTRALINE HCL 50 MG TABLET (FP) PO SCH (09:50)
[2021-11-24] MEDS: PRENATAL VITAMINS W/ FOLIC ACID TABLET (FP) PO SCH (09:50)
[2021-11-24] MEDS: IBUPROFEN 400 MG TABLET (FP) PO PRN (09:50)
[2021-11-24] MEDS: NICOTINE POLACRILEX 2 MG GUM BUC PRN ×2 (09:51→14:30)
[2021-11-24] MEDS: THIAMINE HCL 100 MG TABLET (FP) PO SCH (21:26)
[2021-11-24] MEDS: SUVOREXANT 10 MG TABLET PO PRN (21:51)
[2021-11-25] MEDS: ACAMPROSATE CALCIUM 333 MG TABLET.DR PO SCH ×3 (06:45→21:34)
[2021-11-25] MEDS: GABAPENTIN 300 MG CAPSULE PO SCH ×3 (06:46→21:33)
[2021-11-25] MEDS: NICOTINE POLACRILEX 2 MG GUM BUC PRN ×2 (06:46→09:57)
[2021-11-25] MEDS: BACLOFEN 10 MG TABLET (FP) PO SCH ×3 (06:46→21:33)
[2021-11-25] MEDS: PRENATAL VITAMINS W/ FOLIC ACID TABLET (FP) PO SCH (09:57)
[2021-11-25] MEDS: SERTRALINE HCL 50 MG TABLET (FP) PO SCH (09:57)
[2021-11-25] MEDS: THIAMINE HCL 100 MG TABLET (FP) PO SCH (21:32)
[2021-11-25] MEDS: SUVOREXANT 10 MG TABLET PO PRN (21:32)
[2021-11-26] MEDS: ACAMPROSATE CALCIUM 333 MG TABLET.DR PO SCH ×2 (06:22→13:39)
[2021-11-26] MEDS: BACLOFEN 10 MG TABLET (FP) PO SCH ×3 (06:22→21:24)
[2021-11-26] MEDS: GABAPENTIN 300 MG CAPSULE PO SCH ×3 (06:22→21:24)
[2021-11-26] MEDS: NICOTINE POLACRILEX 2 MG GUM BUC PRN ×3 (06:23→21:25)
[2021-11-26] MEDS: PRENATAL VITAMINS W/ FOLIC ACID TABLET (FP) PO SCH (09:50)
[2021-11-26] MEDS: SERTRALINE HCL 50 MG TABLET (FP) PO SCH (09:50)
[2021-11-26] MEDS: IBUPROFEN 400 MG TABLET (FP) PO PRN (09:52)
[2021-11-26] MEDS: THIAMINE HCL 100 MG TABLET (FP) PO SCH (21:24)
[2021-11-26] MEDS: SUVOREXANT 10 MG TABLET PO PRN (21:24)
[2021-11-27] MEDS: GABAPENTIN 300 MG CAPSULE PO SCH ×3 (06:29→21:31)
[2021-11-27] MEDS: BACLOFEN 10 MG TABLET (FP) PO SCH ×3 (06:29→21:31)
[2021-11-27] MEDS: NICOTINE POLACRILEX 2 MG GUM BUC PRN ×3 (06:29→14:05)
[2021-11-27] MEDS: PRENATAL VITAMINS W/ FOLIC ACID TABLET (FP) PO SCH (09:35)
[2021-11-27] MEDS: SERTRALINE HCL 50 MG TABLET (FP) PO SCH (09:35)
[2021-11-27] MEDS: THIAMINE HCL 100 MG TABLET (FP) PO SCH (21:31)
[2021-11-27] MEDS: SUVOREXANT 10 MG TABLET PO PRN (21:32)
[2021-11-28] MEDS: BACLOFEN 10 MG TABLET (FP) PO SCH ×3 (06:38→21:34)
[2021-11-28] MEDS: GABAPENTIN 300 MG CAPSULE PO SCH ×3 (06:38→21:34)
[2021-11-28] MEDS: NICOTINE POLACRILEX 2 MG GUM BUC PRN ×4 (06:40→21:34)
[2021-11-28] MEDS: PRENATAL VITAMINS W/ FOLIC ACID TABLET (FP) PO SCH (09:45)
[2021-11-28] MEDS: SERTRALINE HCL 50 MG TABLET (FP) PO SCH (09:45)
[2021-11-28] MEDS: SUVOREXANT 10 MG TABLET PO PRN (21:34)
[2021-11-28] MEDS: THIAMINE HCL 100 MG TABLET (FP) PO SCH (21:34)
[2021-11-28] MEDS: IBUPROFEN 400 MG TABLET (FP) PO PRN (22:42)
[2021-11-29] MEDS: GABAPENTIN 300 MG CAPSULE PO SCH ×3 (06:55→21:14)
[2021-11-29] MEDS: BACLOFEN 10 MG TABLET (FP) PO SCH ×3 (06:55→21:14)
[2021-11-29] MEDS: NICOTINE POLACRILEX 2 MG GUM BUC PRN ×3 (06:56→21:15)
[2021-11-29] MEDS: IBUPROFEN 400 MG TABLET (FP) PO PRN (07:11)
[2021-11-29] MEDS: SERTRALINE HCL 50 MG TABLET (FP) PO SCH (09:40)
[2021-11-29] MEDS: PRENATAL VITAMINS W/ FOLIC ACID TABLET (FP) PO SCH (09:40)
[2021-11-29] MEDS: THIAMINE HCL 100 MG TABLET (FP) PO SCH (21:14)
[2021-11-29] MEDS: SUVOREXANT 10 MG TABLET PO PRN (21:14)
[2021-11-30] MEDS: GABAPENTIN 300 MG CAPSULE PO SCH ×3 (06:21→21:28)
[2021-11-30] MEDS: BACLOFEN 10 MG TABLET (FP) PO SCH ×3 (06:21→21:28)
[2021-11-30] MEDS: NICOTINE POLACRILEX 2 MG GUM BUC PRN ×2 (06:21→21:29)
[2021-11-30] MEDS: SERTRALINE HCL 50 MG TABLET (FP) PO SCH (09:32)
[2021-11-30] MEDS: PRENATAL VITAMINS W/ FOLIC ACID TABLET (FP) PO SCH (09:32)
[2021-11-30] MEDS: THIAMINE HCL 100 MG TABLET (FP) PO SCH (21:28)
[2021-11-30] MEDS: SUVOREXANT 10 MG TABLET PO PRN (21:28)
[2021-12-01] MEDS: GABAPENTIN 300 MG CAPSULE PO SCH ×3 (06:32→21:50)
[2021-12-01] MEDS: BACLOFEN 10 MG TABLET (FP) PO SCH ×3 (06:32→21:50)
[2021-12-01] MEDS: NICOTINE POLACRILEX 2 MG GUM BUC PRN ×3 (06:34→22:45)
[2021-12-01] MEDS: PRENATAL VITAMINS W/ FOLIC ACID TABLET (FP) PO SCH (09:56)
[2021-12-01] MEDS: SERTRALINE HCL 50 MG TABLET (FP) PO SCH (09:56)
[2021-12-01] MEDS: IBUPROFEN 400 MG TABLET (FP) PO PRN (09:58)
[2021-12-01] MEDS: THIAMINE HCL 100 MG TABLET (FP) PO SCH (21:50)
[2021-12-01] MEDS: SUVOREXANT 10 MG TABLET PO PRN (21:52)
[2021-12-02] MEDS: NICOTINE POLACRILEX 2 MG GUM BUC PRN ×4 (06:29→21:24)
[2021-12-02] MEDS: GABAPENTIN 300 MG CAPSULE PO SCH ×3 (06:29→21:23)
[2021-12-02] MEDS: BACLOFEN 10 MG TABLET (FP) PO SCH ×3 (06:29→21:23)
[2021-12-02] MEDS: SERTRALINE HCL 50 MG TABLET (FP) PO SCH (10:04)
[2021-12-02] MEDS: PRENATAL VITAMINS W/ FOLIC ACID TABLET (FP) PO SCH (10:04)
[2021-12-02] MEDS: THIAMINE HCL 100 MG TABLET (FP) PO SCH (21:23)
[2021-12-02] MEDS: SUVOREXANT 10 MG TABLET PO PRN (21:23)
[2021-12-03] MEDS: BACLOFEN 10 MG TABLET (FP) PO SCH ×3 (06:38→21:11)
[2021-12-03] MEDS: GABAPENTIN 300 MG CAPSULE PO SCH ×3 (06:38→21:11)
[2021-12-03] MEDS: NICOTINE POLACRILEX 2 MG GUM BUC PRN ×2 (06:39→10:04)
[2021-12-03] MEDS: SERTRALINE HCL 50 MG TABLET (FP) PO SCH (10:03)
[2021-12-03] MEDS: PRENATAL VITAMINS W/ FOLIC ACID TABLET (FP) PO SCH (10:04)
[2021-12-03] MEDS: IBUPROFEN 400 MG TABLET (FP) PO PRN (18:06)
[2021-12-03] MEDS: SUVOREXANT 10 MG TABLET PO PRN (21:11)
[2021-12-03] MEDS: THIAMINE HCL 100 MG TABLET (FP) PO SCH (21:11)
[2021-12-04] MEDS: GABAPENTIN 300 MG CAPSULE PO SCH ×3 (06:28→21:34)
[2021-12-04] MEDS: BACLOFEN 10 MG TABLET (FP) PO SCH ×3 (06:28→21:34)
[2021-12-04] MEDS: NICOTINE POLACRILEX 2 MG GUM BUC PRN ×2 (06:28→21:35)
[2021-12-04] MEDS: SERTRALINE HCL 50 MG TABLET (FP) PO SCH (09:52)
[2021-12-04] MEDS: PRENATAL VITAMINS W/ FOLIC ACID TABLET (FP) PO SCH (09:52)
[2021-12-04] MEDS: IBUPROFEN 400 MG TABLET (FP) PO PRN (11:52)
[2021-12-04] MEDS: SUVOREXANT 10 MG TABLET PO PRN (21:34)
[2021-12-04] MEDS: THIAMINE HCL 100 MG TABLET (FP) PO SCH (21:34)
[2021-12-05] MEDS: BACLOFEN 10 MG TABLET (FP) PO SCH ×3 (06:20→21:24)
[2021-12-05] MEDS: GABAPENTIN 300 MG CAPSULE PO SCH ×3 (06:20→21:24)
[2021-12-05] MEDS: NICOTINE POLACRILEX 2 MG GUM BUC PRN ×2 (06:21→10:00)
[2021-12-05] MEDS: SERTRALINE HCL 50 MG TABLET (FP) PO SCH (09:59)
[2021-12-05] MEDS: PRENATAL VITAMINS W/ FOLIC ACID TABLET (FP) PO SCH (09:59)
[2021-12-05] MEDS: IBUPROFEN 400 MG TABLET (FP) PO PRN (12:06)
[2021-12-05] MEDS: ACAMPROSATE CALCIUM 333 MG TABLET.DR PO SCH ×2 (13:07→21:24)
[2021-12-05] MEDS: SUVOREXANT 10 MG TABLET PO PRN (21:23)
[2021-12-05] MEDS: THIAMINE HCL 100 MG TABLET (FP) PO SCH (21:24)
[2021-12-06] MEDS: BACLOFEN 10 MG TABLET (FP) PO SCH ×3 (06:22→21:55)
[2021-12-06] MEDS: ACAMPROSATE CALCIUM 333 MG TABLET.DR PO SCH ×3 (06:22→23:06)
[2021-12-06] MEDS: GABAPENTIN 300 MG CAPSULE PO SCH ×3 (06:22→21:55)
[2021-12-06] MEDS: PRENATAL VITAMINS W/ FOLIC ACID TABLET (FP) PO SCH (10:14)
[2021-12-06] MEDS: SERTRALINE HCL 50 MG TABLET (FP) PO SCH (10:14)
[2021-12-06] MEDS: NICOTINE POLACRILEX 2 MG GUM BUC PRN ×2 (10:15→21:57)
[2021-12-06] MEDS: THIAMINE HCL 100 MG TABLET (FP) PO SCH (21:54)
[2021-12-06] MEDS: SUVOREXANT 10 MG TABLET PO PRN (21:54)
[2021-12-07] MEDS: BACLOFEN 10 MG TABLET (FP) PO SCH ×3 (06:21→22:37)
[2021-12-07] MEDS: ACAMPROSATE CALCIUM 333 MG TABLET.DR PO SCH ×3 (06:21→22:37)
[2021-12-07] MEDS: GABAPENTIN 300 MG CAPSULE PO SCH ×3 (06:21→22:37)
[2021-12-07 07:08] VITALS: TEMP 97.1
[2021-12-07] MEDS: PRENATAL VITAMINS W/ FOLIC ACID TABLET (FP) PO SCH (09:34)
[2021-12-07] MEDS: SERTRALINE HCL 50 MG TABLET (FP) PO SCH (09:34)
[2021-12-07] MEDS: NICOTINE POLACRILEX 2 MG GUM BUC PRN ×2 (09:35→13:00)
[2021-12-07] MEDS: IBUPROFEN 400 MG TABLET (FP) PO PRN ×2 (12:58→23:53)
[2021-12-07] MEDS: THIAMINE HCL 100 MG TABLET (FP) PO SCH (22:37)
[2021-12-08] MEDS: ACAMPROSATE CALCIUM 333 MG TABLET.DR PO SCH ×4 (06:36→21:16)
[2021-12-08] MEDS: BACLOFEN 10 MG TABLET (FP) PO SCH ×4 (06:36→21:15)
[2021-12-08] MEDS: GABAPENTIN 300 MG CAPSULE PO SCH ×4 (06:36→21:15)
[2021-12-08] MEDS: NICOTINE POLACRILEX 2 MG GUM BUC PRN ×2 (06:38→21:17)
[2021-12-08] MEDS: SERTRALINE HCL 50 MG TABLET (FP) PO SCH (10:34)
[2021-12-08] MEDS: PRENATAL VITAMINS W/ FOLIC ACID TABLET (FP) PO SCH (10:34)
[2021-12-08] MEDS: THIAMINE HCL 100 MG TABLET (FP) PO SCH (21:15)
[2021-12-08] MEDS ORDERED: SUVOREXANT 10 MG TABLET PO PRN (22:00)
[2021-12-09] MEDS: BACLOFEN 10 MG TABLET (FP) PO SCH (06:22)
[2021-12-09] MEDS: ACAMPROSATE CALCIUM 333 MG TABLET.DR PO SCH (06:22)
[2021-12-09] MEDS: GABAPENTIN 300 MG CAPSULE PO SCH (06:22)
[2021-12-09] MEDS: NICOTINE POLACRILEX 2 MG GUM BUC PRN ×2 (06:23→09:55)
[2021-12-09 06:47] VITALS: BP 128/82; PULSE 64
[2021-12-09] MEDS: PRENATAL VITAMINS W/ FOLIC ACID TABLET (FP) PO SCH (09:54)
[2021-12-09] MEDS: SERTRALINE HCL 50 MG TABLET (FP) PO SCH (09:54)
== END 2021-12-09 10:00 | disposition home or self-care (01) | DRG 772 ==
LOC: YASAS 13:56 → Y3E 13:57
PROVIDERS: ADMIT Allergy & Immunology; ATTEND Allergy & Immunology
PROC: HZ42ZZZ Group Counseling for Substance Abuse Treatment, Cognitive-Behavioral (ICD-10-PCS; principal; 2021-11-11)
DX: F10.20 Alcohol dependence, uncomplicated (principal); F17.210 Nicotine dependence, cigarettes, uncomplicated; F19.282 Other psychoactive substance dependence with psychoactive substance-induced sleep disorder; F19.24 Other psychoactive substance dependence with psychoactive substance-induced mood disorder; F41.9 Anxiety disorder, unspecified; F32.9 Major depressive disorder, single episode, unspecified; F43.10 Post-traumatic stress disorder, unspecified; M79.18 Myalgia, other site; B19.10 Unspecified viral hepatitis B without hepatic coma; Z86.19 Personal history of other infectious and parasitic diseases
CPT/HCPCS: 36415; 87517; C9803; J0475; U0003; U0005

== ENCOUNTER 2022-05-11 18:49 | Inpatient (IN) | payer OTHER ==
[2022-05-11] MEDS ORDERED: P-EPHED 60MG/TRIPROLIDI 2.5MG TABLET PO PRN (21:08)
[2022-05-11] MEDS ORDERED: IBUPROFEN 400 MG TABLET (FP) PO PRN (21:08)
[2022-05-11] MEDS ORDERED: NALOXONE HCL (KLOXXADO) 8 MG SPRAY NS PRN (21:08)
[2022-05-11] MEDS ORDERED: BISMUTH SUBSALICYLATE 524 MG/30 ML PO PRN (21:08)
[2022-05-11] MEDS ORDERED: guaiFENesin 200 MG/10 ML 10 ML UNIT-DOSE CUPS PO PRN (21:08)
[2022-05-11] MEDS ORDERED: MAGNESIUM HYDROX 2400MG/30ML ORAL SUSPENSION 30 ML CUP PO PRN (21:08)
[2022-05-11] MEDS ORDERED: methaDONE HCL 10 MG TABLET (FOR DETOX USE ONLY) PO ONE (21:08)
[2022-05-11] MEDS ORDERED: ACETAMINOPHEN 325 MG TABLET (FP) PO PRN ×2 (21:08)
[2022-05-11] MEDS ORDERED: cloNIDine HCL 0.1 MG TABLET PO PRN (21:08)
[2022-05-11] MEDS ORDERED: BENZOCAINE/MENTHOL (CHLORASEPTIC ) LOZENGE MM PRN (21:08)
[2022-05-11] MEDS ORDERED: MAG HYDROX/AL HYDROX/SIMETH 30 ML UNIT-DOSE CUP PO PRN (21:08)
[2022-05-11] MEDS ORDERED: NALOXONE HCL 0.4 MG/ML VIAL IM PRN (21:08)
[2022-05-11] MEDS ORDERED: LOPERAMIDE HCL 2 MG CAPSULE PO PRN (21:08)
[2022-05-11] MEDS ORDERED: PROCHLORPERAZINE MALEATE 5 MG TABLET PO PRN (21:08)
[2022-05-11] MEDS ORDERED: LORazepam 1 MG TABLET PO PRN (21:08)
[2022-05-11] MEDS ORDERED: IBUPROFEN 600 MG TABLET (FP) PO PRN (21:08)
[2022-05-11] MEDS ORDERED: DICYCLOMINE HCL 10 MG CAPSULE PO PRN (21:08)
[2022-05-11] MEDS ORDERED: MAGNESIUM CITRATE 300 ML BOTTLE PO PRN (21:08)
[2022-05-11] MEDS ORDERED: MELATONIN 5 MG TABLETS PO SCH (22:00)
[2022-05-11] MEDS ORDERED: LORazepam 2 MG TABLET ONE (22:02)
[2022-05-11] MEDS ORDERED: methaDONE HCL 10 MG TABLET (FOR DETOX USE ONLY) ONE (22:02)
[2022-05-11] MEDS: LORazepam 2 MG TABLET PO SCH (22:08)
[2022-05-12] MEDS: THIAMINE HCL 100 MG TABLET (FP) PO SCH ×2 (02:29→21:54)
[2022-05-12] MEDS: NICOTINE POLACRILEX 2 MG GUM BUC PRN ×2 (02:35→10:20)
[2022-05-12] MEDS: LORazepam 2 MG TABLET PO SCH ×4 (06:16→22:00)
[2022-05-12] MEDS ORDERED: ONDANSETRON *ODT* 4 MG TABLET SL PRN (08:53)
[2022-05-12] MEDS ORDERED: methaDONE HCL 10 MG TABLET (FOR DETOX USE ONLY) ONE (09:06)
[2022-05-12] MEDS: SERTRALINE HCL 50 MG TABLET (FP) PO SCH (10:16)
[2022-05-12] MEDS: PRENATAL VITAMINS W/ FOLIC ACID TABLET (FP) PO SCH (10:17)
[2022-05-12] MEDS: NICOTINE 21 MG/24 HOURS TOPICAL PATCH TD SCH (10:19)
[2022-05-12] MEDS: GABAPENTIN 300 MG CAPSULE PO SCH ×2 (13:04→21:53)
[2022-05-12] MEDS: METHOCARBAMOL 500 MG TABLET PO PRN (18:15)
[2022-05-12] MEDS: SUVOREXANT 10 MG TABLET PO PRN (21:58)
[2022-05-13] MEDS: GABAPENTIN 300 MG CAPSULE PO SCH ×3 (05:38→22:36)
[2022-05-13] MEDS: LORazepam 1 MG TABLET PO SCH ×4 (05:38→22:36)
[2022-05-13] MEDS ORDERED: methaDONE HCL 10 MG TABLET (FOR DETOX USE ONLY) PO ONE (10:00)
[2022-05-13] MEDS: SERTRALINE HCL 50 MG TABLET (FP) PO SCH (10:36)
[2022-05-13] MEDS: PRENATAL VITAMINS W/ FOLIC ACID TABLET (FP) PO SCH (10:38)
[2022-05-13] MEDS: NICOTINE 21 MG/24 HOURS TOPICAL PATCH TD SCH (10:38)
[2022-05-13 11:49] LABS: HEMATOCRIT 45.5 % (35.4-49); HEMOGLOBIN 15.8 GM/dL (11.7-16.9); MCH 30.3 pg (25.7-33.7); MCHC 34.7 g/dl (32.0-35.9); MEAN CELL VOLUME 87.4 fl (80-96); MEAN PLT VOLUME 7.5 fl (7.5-11.1); PLATELET COUNT 177 10^3/uL (134-434); RBC 5.21 M/mm3 (4.00-5.60); RDW 14.6 % (11.9-15.9); WHITE BLOOD COUNT 3.9 K/mm3 (4.0-10.0)
[2022-05-13 12:14] LABS: CALCIUM 8.8 mg/dL (8.5-10.1)
[2022-05-13 12:15] LABS: ALBUMIN 3.3 g/dl (3.4-5.0); BLOOD UREA NITROGEN 7.7 mg/dL (7-18)
[2022-05-13 12:17] LABS: CREATININE 0.8 mg/dL (0.55-1.3)
[2022-05-13 12:19] LABS: TOT PROT 7.3 g/dl (6.4-8.2)
[2022-05-13] MEDS: NICOTINE POLACRILEX 2 MG GUM BUC PRN (13:40)
[2022-05-13] MEDS: METHOCARBAMOL 500 MG TABLET PO PRN (18:18)
[2022-05-13] MEDS: THIAMINE HCL 100 MG TABLET (FP) PO SCH (22:35)
[2022-05-13] MEDS: SUVOREXANT 10 MG TABLET PO PRN (22:37)
[2022-05-14] MEDS ORDERED: LORazepam 0.5 MG TABLET PO PRN
[2022-05-14] MEDS: LORazepam 0.5 MG TABLET PO SCH ×4 (05:56→23:14)
[2022-05-14] MEDS: GABAPENTIN 300 MG CAPSULE PO SCH ×3 (05:57→23:14)
[2022-05-14] MEDS: NICOTINE POLACRILEX 2 MG GUM BUC PRN ×3 (05:58→14:03)
[2022-05-14] MEDS ORDERED: methaDONE HCL 10 MG TABLET (FOR DETOX USE ONLY) ONE (08:56)
[2022-05-14] MEDS: SERTRALINE HCL 50 MG TABLET (FP) PO SCH (10:20)
[2022-05-14] MEDS: NICOTINE 21 MG/24 HOURS TOPICAL PATCH TD SCH (10:22)
[2022-05-14] MEDS: PRENATAL VITAMINS W/ FOLIC ACID TABLET (FP) PO SCH (10:22)
[2022-05-14] MEDS: hydrOXYzine PAMOATE 25 MG CAPSULE (FP) PO PRN ×2 (10:25→18:45)
[2022-05-14 16:27] LABS: HIV INTERPRETATION NEGATIVE (NEGATIVE)
[2022-05-14] MEDS: METHOCARBAMOL 500 MG TABLET PO PRN (18:45)
[2022-05-14] MEDS: SUVOREXANT 10 MG TABLET PO PRN (23:13)
[2022-05-14] MEDS: THIAMINE HCL 100 MG TABLET (FP) PO SCH (23:14)
[2022-05-15] MEDS ORDERED: LORazepam 0.5 MG TABLET PO ONE (05:00)
[2022-05-15] MEDS: GABAPENTIN 300 MG CAPSULE PO SCH ×2 (05:39→14:48)
[2022-05-15] MEDS: NICOTINE POLACRILEX 2 MG GUM BUC PRN ×2 (05:42→10:42)
[2022-05-15] MEDS ORDERED: methaDONE HCL 10 MG TABLET (FOR DETOX USE ONLY) PO ONE (10:00)
[2022-05-15] MEDS: PRENATAL VITAMINS W/ FOLIC ACID TABLET (FP) PO SCH (10:37)
[2022-05-15] MEDS: METHOCARBAMOL 500 MG TABLET PO PRN (10:37)
[2022-05-15] MEDS: SERTRALINE HCL 50 MG TABLET (FP) PO SCH (10:37)
[2022-05-15] MEDS: hydrOXYzine PAMOATE 25 MG CAPSULE (FP) PO PRN (10:38)
[2022-05-15] MEDS: NICOTINE 21 MG/24 HOURS TOPICAL PATCH TD SCH (10:40)
[2022-05-15 17:26] VITALS: BP 110/72; PULSE 88; RESP 16; TEMP 97.5
[2022-05-15] MEDS ORDERED: diazePAM 5 MG TABLET PO PRN (18:01)
[2022-05-16] MEDS ORDERED: SERTRALINE HCL 25 MG TABLET (FP) PO SCH (10:00)
== END 2022-05-15 20:35 | disposition left against medical advice (07) | DRG 770 ==
LOC: YASAS 18:49 → Y6N 23:32
PROVIDERS: ADMIT Allergy & Immunology; ATTEND Surgery
PROC: HZ2ZZZZ Detoxification Services for Substance Abuse Treatment (ICD-10-PCS; principal; 2022-05-11)
DX: F11.23 Opioid dependence with withdrawal (principal); F10.230 Alcohol dependence with withdrawal, uncomplicated; F14.20 Cocaine dependence, uncomplicated; F12.20 Cannabis dependence, uncomplicated; F17.210 Nicotine dependence, cigarettes, uncomplicated; F19.282 Other psychoactive substance dependence with psychoactive substance-induced sleep disorder; F19.280 Other psychoactive substance dependence with psychoactive substance-induced anxiety disorder; F32.A Depression, unspecified; F43.10 Post-traumatic stress disorder, unspecified; F41.9 Anxiety disorder, unspecified; Z62.810 Personal history of physical and sexual abuse in childhood; Z86.19 Personal history of other infectious and parasitic diseases; Z28.310 Unvaccinated for COVID-19; Z56.0 Unemployment, unspecified; Z59.00 Homelessness unspecified
CPT/HCPCS: 36415; 80053; 83036; 85027; 86780; 87389; 93005; 93010; C9803-CS; J0735; Q0162; U0003; U0005

== ENCOUNTER 2022-06-08 19:05 | Inpatient (IN) | payer OTHER ==
[2022-06-08] MEDS ORDERED: METHOCARBAMOL 500 MG TABLET PO PRN (20:59)
[2022-06-08] MEDS ORDERED: IBUPROFEN 600 MG TABLET (FP) PO PRN (20:59)
[2022-06-08] MEDS ORDERED: IBUPROFEN 400 MG TABLET (FP) PO PRN (20:59)
[2022-06-08] MEDS ORDERED: ACETAMINOPHEN 325 MG TABLET (FP) PO PRN ×2 (20:59)
[2022-06-08] MEDS ORDERED: MAG HYDROX/AL HYDROX/SIMETH 30 ML UNIT-DOSE CUP PO PRN (20:59)
[2022-06-08] MEDS ORDERED: PROCHLORPERAZINE MALEATE 5 MG TABLET PO PRN (20:59)
[2022-06-08] MEDS ORDERED: P-EPHED 60MG/TRIPROLIDI 2.5MG TABLET PO PRN (20:59)
[2022-06-08] MEDS ORDERED: NALOXONE HCL 0.4 MG/ML VIAL IM PRN (20:59)
[2022-06-08] MEDS ORDERED: BISMUTH SUBSALICYLATE 524 MG/30 ML PO PRN (20:59)
[2022-06-08] MEDS ORDERED: NICOTINE POLACRILEX 2 MG GUM BUC PRN (20:59)
[2022-06-08] MEDS ORDERED: methaDONE HCL 10 MG TABLET (FOR DETOX USE ONLY) PO ONE (20:59)
[2022-06-08] MEDS ORDERED: LOPERAMIDE HCL 2 MG CAPSULE PO PRN (20:59)
[2022-06-08] MEDS ORDERED: DICYCLOMINE HCL 10 MG CAPSULE PO PRN (20:59)
[2022-06-08] MEDS ORDERED: NALOXONE HCL (KLOXXADO) 8 MG SPRAY NS PRN (20:59)
[2022-06-08] MEDS ORDERED: guaiFENesin 200 MG/10 ML 10 ML UNIT-DOSE CUPS PO PRN (20:59)
[2022-06-08] MEDS ORDERED: MAGNESIUM HYDROX 2400MG/30ML ORAL SUSPENSION 30 ML CUP PO PRN (20:59)
[2022-06-08] MEDS ORDERED: MAGNESIUM CITRATE 300 ML BOTTLE PO PRN (20:59)
[2022-06-08 21:15] VITALS: BMI 29.2
[2022-06-08] MEDS: cloNIDine HCL 0.1 MG TABLET PO PRN (23:31)
[2022-06-08] MEDS: diazePAM 5 MG TABLET PO SCH (23:31)
[2022-06-08] MEDS: THIAMINE HCL 100 MG TABLET (FP) PO SCH (23:33)
[2022-06-08] MEDS: MELATONIN 5 MG TABLETS PO SCH (23:33)
[2022-06-08] MEDS: BENZOCAINE/MENTHOL (CHLORASEPTIC ) LOZENGE MM PRN (23:44)
[2022-06-09] MEDS: diazePAM 5 MG TABLET PO PRN ×2 (03:28→15:20)
[2022-06-09] MEDS: diazePAM 5 MG TABLET PO SCH ×4 (05:11→22:34)
[2022-06-09] MEDS ORDERED: PRENATAL VITAMINS W/ FOLIC ACID TABLET (FP) PO SCH (10:00)
[2022-06-09] MEDS ORDERED: NICOTINE 14 MG/24 HOURS TOPICAL PATCH TD SCH (10:00)
[2022-06-09] MEDS: cloNIDine HCL 0.1 MG TABLET PO PRN (10:02)
[2022-06-09] MEDS: BENZOCAINE/MENTHOL (CHLORASEPTIC ) LOZENGE MM PRN ×3 (10:02→22:34)
[2022-06-09] MEDS: AMOX TR/POT CLAV 500MG/125MG TABLETS (FP) PO SCH ×2 (10:38→18:25)
[2022-06-09] MEDS ORDERED: SERTRALINE HCL 50 MG TABLET (FP) PO SCH (12:45)
[2022-06-09] MEDS: GABAPENTIN 300 MG CAPSULE PO SCH ×2 (14:17→22:33)
[2022-06-09] MEDS ORDERED: ONDANSETRON *ODT* 4 MG TABLET SL ONE (15:58)
[2022-06-09] MEDS: THIAMINE HCL 100 MG TABLET (FP) PO SCH (22:33)
[2022-06-09] MEDS: MELATONIN 5 MG TABLETS PO SCH (22:33)
[2022-06-10] MEDS ORDERED: diazePAM 5 MG TABLET PO SCH (06:00)
[2022-06-10 06:34] VITALS: RESP 18
[2022-06-10] MEDS: GABAPENTIN 300 MG CAPSULE PO SCH (07:41)
[2022-06-10] MEDS: AMOX TR/POT CLAV 500MG/125MG TABLETS (FP) PO SCH (07:42)
[2022-06-10 09:05] VITALS: BP 126/75; PULSE 53; TEMP 97.5
[2022-06-10] MEDS ORDERED: methaDONE HCL 10 MG TABLET (FOR DETOX USE ONLY) PO ONE (10:00)
[2022-06-11] MEDS ORDERED: diazePAM 5 MG TABLET PO SCH (06:00)
[2022-06-11] MEDS ORDERED: methaDONE HCL 10 MG TABLET (FOR DETOX USE ONLY) PO ONE (10:00)
[2022-06-12] MEDS ORDERED: diazePAM 5 MG TABLET PO ONE (06:00)
== END 2022-06-10 10:02 | disposition left against medical advice (07) | DRG 770 ==
LOC: YASAS 19:05 → Y3N 22:24
PROVIDERS: ADMIT Allergy & Immunology; ATTEND Surgery
PROC: HZ2ZZZZ Detoxification Services for Substance Abuse Treatment (ICD-10-PCS; principal; 2022-06-08)
DX: F11.23 Opioid dependence with withdrawal (principal); F14.20 Cocaine dependence, uncomplicated; F10.230 Alcohol dependence with withdrawal, uncomplicated; F17.210 Nicotine dependence, cigarettes, uncomplicated; F19.280 Other psychoactive substance dependence with psychoactive substance-induced anxiety disorder; F19.24 Other psychoactive substance dependence with psychoactive substance-induced mood disorder; F43.10 Post-traumatic stress disorder, unspecified; R63.8 Other symptoms and signs concerning food and fluid intake; R74.8 Abnormal levels of other serum enzymes; Z86.19 Personal history of other infectious and parasitic diseases; Z28.310 Unvaccinated for COVID-19; Z91.19 Patient's noncompliance with other medical treatment and regimen; Z59.02 Unsheltered homelessness; Z56.0 Unemployment, unspecified
CPT/HCPCS: 87811; C9803-CS; J0735; Q0162; U0003; U0005

== ENCOUNTER 2022-08-08 19:33 | Inpatient (IN) | payer OTHER ==
[2022-08-08 20:41] VITALS: BMI 27.8
[2022-08-08] MEDS ORDERED: guaiFENesin 200 MG/10 ML 10 ML UNIT-DOSE CUPS PO PRN (22:15)
[2022-08-08] MEDS ORDERED: BISMUTH SUBSALICYLATE 524 MG/30 ML PO PRN (22:15)
[2022-08-08] MEDS ORDERED: MAGNESIUM CITRATE 300 ML BOTTLE PO PRN (22:15)
[2022-08-08] MEDS ORDERED: ACETAMINOPHEN 325 MG TABLET (FP) PO PRN ×2 (22:15)
[2022-08-08] MEDS ORDERED: cloNIDine HCL 0.1 MG TABLET PO PRN (22:15)
[2022-08-08] MEDS ORDERED: LOPERAMIDE HCL 2 MG CAPSULE PO PRN (22:15)
[2022-08-08] MEDS ORDERED: DICYCLOMINE HCL 10 MG CAPSULE PO PRN (22:15)
[2022-08-08] MEDS ORDERED: chlordiazePOXIDE HCL 25 MG CAPSULE PO PRN (22:15)
[2022-08-08] MEDS ORDERED: NALOXONE HCL (KLOXXADO) 8 MG SPRAY NS PRN (22:15)
[2022-08-08] MEDS ORDERED: methaDONE HCL 10 MG TABLET (FOR DETOX USE ONLY) PO ONE (22:15)
[2022-08-08] MEDS ORDERED: hydrOXYzine PAMOATE 25 MG CAPSULE (FP) PO PRN (22:15)
[2022-08-08] MEDS ORDERED: MAG HYDROX/AL HYDROX/SIMETH 30 ML UNIT-DOSE CUP PO PRN (22:15)
[2022-08-08] MEDS ORDERED: MAGNESIUM HYDROX 2400MG/30ML ORAL SUSPENSION 30 ML CUP PO PRN (22:15)
[2022-08-08] MEDS ORDERED: IBUPROFEN 400 MG TABLET (FP) PO PRN (22:15)
[2022-08-08] MEDS ORDERED: BENZOCAINE/MENTHOL (CHLORASEPTIC ) LOZENGE MM PRN (22:15)
[2022-08-08] MEDS ORDERED: P-EPHED 60MG/TRIPROLIDI 2.5MG TABLET PO PRN (22:15)
[2022-08-08] MEDS ORDERED: diazePAM 5 MG TABLET PO PRN (22:24)
[2022-08-08] MEDS ORDERED: chlordiazePOXIDE HCL 25 MG CAPSULE PO SCH (23:00)
[2022-08-08] MEDS ORDERED: methaDONE HCL 10 MG TABLET (FOR DETOX USE ONLY) ONE (23:24)
[2022-08-09] MEDS ORDERED: diazePAM 5 MG TABLET ONE ×2 (00:16→05:55)
[2022-08-09] MEDS: diazePAM 5 MG TABLET PO SCH ×5 (00:18→22:09)
[2022-08-09] MEDS ORDERED: IBUPROFEN 600 MG TABLET (FP) PO ONE (01:57)
[2022-08-09] MEDS: IBUPROFEN 600 MG TABLET (FP) PO PRN ×2 (01:58→17:40)
[2022-08-09] MEDS ORDERED: ONDANSETRON *ODT* 4 MG TABLET ONE (07:55)
[2022-08-09] MEDS: ONDANSETRON *ODT* 4 MG TABLET SL PRN (07:57)
[2022-08-09] MEDS: PRENATAL VITAMINS W/ FOLIC ACID TABLET (FP) PO SCH (10:48)
[2022-08-09] MEDS: NICOTINE 21 MG/24 HOURS TOPICAL PATCH TD SCH (10:49)
[2022-08-09] MEDS: METHOCARBAMOL 500 MG TABLET PO PRN ×2 (10:49→17:33)
[2022-08-09] MEDS ORDERED: NICOTINE 10 MG CARTRIDGE (INHALER) IH PRN (11:02)
[2022-08-09] MEDS ORDERED: CYCLOBENZAPRINE HCL 10 MG TABLET (FP) PO ONE (11:02)
[2022-08-09] MEDS: NICOTINE POLACRILEX 2 MG GUM BUC PRN (11:08)
[2022-08-09] MEDS: MELATONIN 5 MG TABLETS PO SCH (22:08)
[2022-08-09] MEDS: THIAMINE HCL 100 MG TABLET (FP) PO SCH (22:09)
[2022-08-10] MEDS ORDERED: chlordiazePOXIDE HCL 25 MG CAPSULE PO SCH (05:00)
[2022-08-10] MEDS: METHOCARBAMOL 500 MG TABLET PO PRN ×3 (05:13→17:46)
[2022-08-10] MEDS ORDERED: diazePAM 5 MG TABLET PO SCH (06:00)
[2022-08-10] MEDS: ONDANSETRON *ODT* 4 MG TABLET SL PRN (08:37)
[2022-08-10] MEDS ORDERED: methaDONE HCL 10 MG TABLET (FOR DETOX USE ONLY) PO ONE (10:00)
[2022-08-10] MEDS ORDERED: LORazepam 1 MG TABLET PO PRN (10:02)
[2022-08-10] MEDS: PRENATAL VITAMINS W/ FOLIC ACID TABLET (FP) PO SCH (10:30)
[2022-08-10] MEDS: NICOTINE 21 MG/24 HOURS TOPICAL PATCH TD SCH (10:31)
[2022-08-10] MEDS: NICOTINE POLACRILEX 2 MG GUM BUC PRN (10:32)
[2022-08-10] MEDS: guaiFENesin 600 MG TABLET.ER (FP) PO SCH ×2 (10:49→23:53)
[2022-08-10] MEDS: LORazepam 2 MG TABLET PO SCH ×3 (11:38→22:27)
[2022-08-10 13:27] LABS: CALCIUM 9.3 mg/dL (8.5-10.1)
[2022-08-10 13:28] LABS: ALBUMIN 3.1 g/dl (3.4-5.0); BLOOD UREA NITROGEN 10.9 mg/dL (7-18)
[2022-08-10 13:31] LABS: CREATININE 0.8 mg/dL (0.55-1.3)
[2022-08-10 13:32] LABS: BILIRUBIN,TOTAL 0.8 mg/dL (0.2-1); TOT PROT 6.8 g/dl (6.4-8.2)
[2022-08-10 13:39] LABS: HEMATOCRIT 45.1 % (35.4-49); HEMOGLOBIN 15.2 GM/dL (11.7-16.9); MCH 30.9 pg (25.7-33.7); MCHC 33.7 g/dl (32.0-35.9); MEAN CELL VOLUME 91.7 fl (80-96); MEAN PLT VOLUME 7.4 fl (7.5-11.1); PLATELET COUNT 222 10^3/uL (134-434); RBC 4.91 M/mm3 (4.00-5.60); RDW 12.9 % (11.9-15.9); WHITE BLOOD COUNT 4.4 K/mm3 (4.0-10.0)
[2022-08-10 14:23] LABS: HIV INTERPRETATION NEGATIVE (NEGATIVE)
[2022-08-10] MEDS: THIAMINE HCL 100 MG TABLET (FP) PO SCH (22:26)
[2022-08-10] MEDS: MELATONIN 5 MG TABLETS PO SCH (22:27)
[2022-08-11] MEDS ORDERED: chlordiazePOXIDE HCL 10 MG CAPSULE PO PRN
[2022-08-11] MEDS ORDERED: chlordiazePOXIDE HCL 10 MG CAPSULE PO SCH (05:00)
[2022-08-11] MEDS ORDERED: diazePAM 5 MG TABLET PO SCH (06:00)
[2022-08-11] MEDS: LORazepam 1 MG TABLET PO SCH ×3 (06:14→18:48)
[2022-08-11] MEDS: NICOTINE 21 MG/24 HOURS TOPICAL PATCH TD SCH (10:26)
[2022-08-11] MEDS: PRENATAL VITAMINS W/ FOLIC ACID TABLET (FP) PO SCH (10:26)
[2022-08-11] MEDS: METHOCARBAMOL 500 MG TABLET PO PRN ×2 (10:27→15:40)
[2022-08-11] MEDS: guaiFENesin 600 MG TABLET.ER (FP) PO SCH (10:30)
[2022-08-11 12:51] VITALS: BP 146/81; PULSE 87; RESP 18; TEMP 96.8
[2022-08-12] MEDS ORDERED: LORazepam 0.5 MG TABLET PO PRN
[2022-08-12] MEDS ORDERED: chlordiazePOXIDE HCL 10 MG CAPSULE PO SCH (05:00)
[2022-08-12] MEDS ORDERED: LORazepam 0.5 MG TABLET PO SCH (05:00)
[2022-08-12] MEDS ORDERED: diazePAM 5 MG TABLET PO ONE (06:00)
[2022-08-12] MEDS ORDERED: methaDONE HCL 10 MG TABLET (FOR DETOX USE ONLY) PO ONE (10:00)
[2022-08-13] MEDS ORDERED: chlordiazePOXIDE HCL 10 MG CAPSULE PO ONE (05:00)
[2022-08-13] MEDS ORDERED: LORazepam 0.5 MG TABLET PO ONE (05:00)
== END 2022-08-11 17:11 | disposition left against medical advice (07) | DRG 770 ==
LOC: YASAS 19:33 → Y6N 08-09 07:04
PROVIDERS: ADMIT Surgery; ATTEND Surgery
PROC: HZ2ZZZZ Detoxification Services for Substance Abuse Treatment (ICD-10-PCS; principal; 2022-08-09)
DX: F11.23 Opioid dependence with withdrawal (principal); F10.230 Alcohol dependence with withdrawal, uncomplicated; F14.10 Cocaine abuse, uncomplicated; F17.210 Nicotine dependence, cigarettes, uncomplicated; F19.282 Other psychoactive substance dependence with psychoactive substance-induced sleep disorder; F19.280 Other psychoactive substance dependence with psychoactive substance-induced anxiety disorder; F19.24 Other psychoactive substance dependence with psychoactive substance-induced mood disorder; F32.9 Major depressive disorder, single episode, unspecified; R63.8 Other symptoms and signs concerning food and fluid intake; Z62.810 Personal history of physical and sexual abuse in childhood; Z86.19 Personal history of other infectious and parasitic diseases; Z59.00 Homelessness unspecified; Z28.310 Unvaccinated for COVID-19; Z28.9 Immunization not carried out for unspecified reason
CPT/HCPCS: 36415; 80053; 82140; 84450; 85027; 86780; 87389; 87811; C9803-CS; Q0162; U0003; U0005

== ENCOUNTER 2023-03-09 00:55 | Inpatient (IN) | payer OTHER ==
[2023-03-09 01:41] VITALS: BMI 29.1
[2023-03-09] MEDS ORDERED: LOPERAMIDE HCL 2 MG CAPSULE PO PRN (03:04)
[2023-03-09] MEDS ORDERED: NALOXONE HCL 0.4 MG/ML VIAL IM PRN (03:04)
[2023-03-09] MEDS ORDERED: BISMUTH SUBSALICYLATE 524 MG/30 ML PO PRN (03:04)
[2023-03-09] MEDS ORDERED: guaiFENesin 600 MG TABLET.ER (FP) PO PRN (03:04)
[2023-03-09] MEDS ORDERED: BENZONATATE 200 MG CAPSULE PO PRN (03:04)
[2023-03-09] MEDS ORDERED: MAG HYDROX/AL HYDROX/SIMETH 30 ML UNIT-DOSE CUP PO PRN (03:04)
[2023-03-09] MEDS ORDERED: MAGNESIUM HYDROX 2400MG/30ML ORAL SUSPENSION 30 ML CUP PO PRN (03:04)
[2023-03-09] MEDS ORDERED: IBUPROFEN 400 MG TABLET (FP) PO PRN (03:04)
[2023-03-09] MEDS ORDERED: POLYETHYLENE GLYCOL (HEALTHYLAX) 3350 17 GM PACKET PO PRN (03:04)
[2023-03-09] MEDS ORDERED: BENZOCAINE/MENTHOL (CHLORASEPTIC ) LOZENGE MM PRN (03:04)
[2023-03-09] MEDS ORDERED: NALOXONE HCL (KLOXXADO) 8 MG SPRAY NS PRN (03:04)
[2023-03-09] MEDS ORDERED: ACETAMINOPHEN 325 MG TABLET (FP) PO PRN (03:04)
[2023-03-09] MEDS ORDERED: NICOTINE 10 MG CARTRIDGE (INHALER) IH PRN (03:04)
[2023-03-09] MEDS ORDERED: DICYCLOMINE HCL 10 MG CAPSULE PO PRN (03:04)
[2023-03-09] MEDS ORDERED: methaDONE HCL 10 MG TABLET (FOR DETOX USE ONLY) PO ONE (09:25)
[2023-03-09] MEDS ORDERED: diazePAM 5 MG TABLET PO PRN (09:25)
[2023-03-09] MEDS ORDERED: cloNIDine HCL 0.1 MG TABLET PO PRN (09:25)
[2023-03-09] MEDS: PRENATAL VITAMINS W/ FOLIC ACID TABLET (FP) PO SCH (10:17)
[2023-03-09] MEDS: diazePAM 5 MG TABLET PO SCH ×3 (10:18→22:55)
[2023-03-09] MEDS: IBUPROFEN 600 MG TABLET (FP) PO PRN (10:20)
[2023-03-09] MEDS: METHOCARBAMOL 500 MG TABLET PO PRN ×2 (10:20→22:54)
[2023-03-09] MEDS: NICOTINE 14 MG/24 HOURS TOPICAL PATCH TD SCH (10:44)
[2023-03-09] MEDS: ONDANSETRON *ODT* 4 MG TABLET SL PRN (11:27)
[2023-03-09 11:38] LABS: HEMATOCRIT 43.8 % (35.4-49); MCH 30.6 pg (25.7-33.7); MCHC 34.2 g/dl (32.0-35.9); MEAN CELL VOLUME 89.6 fl (80-96); MEAN PLT VOLUME 7.2 fl (7.5-11.1); PLATELET COUNT 152 10^3/uL (134-434); RBC 4.89 M/mm3 (4.00-5.60); RDW 13.4 % (11.9-15.9); WHITE BLOOD COUNT 3.3 K/mm3 (4.0-10.0)
[2023-03-09 11:49] LABS: POTASSIUM 3.8 mmol/L (3.5-5.1)
[2023-03-09 12:18] LABS: CALCIUM 8.5 mg/dL (8.5-10.1)
[2023-03-09 12:19] LABS: ALBUMIN 3.6 g/dl (3.4-5.0); BLOOD UREA NITROGEN 8.8 mg/dL (7-18)
[2023-03-09 12:22] LABS: CREATININE 0.8 mg/dL (0.55-1.3)
[2023-03-09 12:24] LABS: BILIRUBIN,TOTAL 0.6 mg/dL (0.2-1)
[2023-03-09] MEDS ORDERED: TRIMETHOBENZAMIDE HCL 200MG/2ML INJ IM ONE ×2 (16:00→18:00)
[2023-03-09] MEDS: LACTULOSE 20 GM/30 ML UDC (FOR ORAL USE ONLY) PO SCH ×2 (18:17→22:54)
[2023-03-09] MEDS ORDERED: THIAMINE HCL 100 MG TABLET (FP) PO SCH (22:00)
[2023-03-09] MEDS ORDERED: MELATONIN 5 MG TABLETS PO SCH (22:00)
[2023-03-09] MEDS: GABAPENTIN 300 MG CAPSULE PO SCH (22:55)
[2023-03-10] MEDS: diazePAM 5 MG TABLET PO SCH ×2 (05:39→10:07)
[2023-03-10] MEDS: LACTULOSE 20 GM/30 ML UDC (FOR ORAL USE ONLY) PO SCH ×2 (05:40→13:32)
[2023-03-10] MEDS: GABAPENTIN 300 MG CAPSULE PO SCH ×2 (05:40→13:32)
[2023-03-10] MEDS ORDERED: SERTRALINE HCL 50 MG TABLET (FP) PO SCH (10:00)
[2023-03-10 10:02] VITALS: RESP 18
[2023-03-10] MEDS: PRENATAL VITAMINS W/ FOLIC ACID TABLET (FP) PO SCH (10:04)
[2023-03-10] MEDS: NICOTINE 14 MG/24 HOURS TOPICAL PATCH TD SCH (10:05)
[2023-03-10] MEDS: ONDANSETRON *ODT* 4 MG TABLET SL PRN (10:07)
[2023-03-10] MEDS ORDERED: ASPIRIN 81 MG CHEWABLE TABLETS ONE (10:39)
[2023-03-10] MEDS ORDERED: ASPIRIN 81 MG CHEWABLE TABLETS PO ONE (11:00)
[2023-03-10] MEDS: IBUPROFEN 600 MG TABLET (FP) PO PRN (13:33)
[2023-03-10 13:49] VITALS: BP 133/96; PULSE 69; TEMP 97.5
[2023-03-10] MEDS ORDERED: hydrOXYzine PAMOATE 50 MG CAPSULE (FP) PO ONE (15:43)
[2023-03-10] MEDS ORDERED: hydrOXYzine PAMOATE 25 MG CAPSULE (FP) PO PRN (20:00)
[2023-03-11] MEDS ORDERED: diazePAM 5 MG TABLET PO SCH (06:00)
[2023-03-11] MEDS ORDERED: methaDONE HCL 10 MG TABLET (FOR DETOX USE ONLY) PO ONE (10:00)
[2023-03-12] MEDS ORDERED: diazePAM 5 MG TABLET PO SCH (06:00)
[2023-03-13] MEDS ORDERED: diazePAM 5 MG TABLET PO ONE (06:00)
[2023-03-13] MEDS ORDERED: methaDONE HCL 10 MG TABLET (FOR DETOX USE ONLY) PO ONE (10:00)
== END 2023-03-10 15:56 | disposition left against medical advice (07) | DRG 770 ==
LOC: YASAS 00:55 → Y3N 02:09
PROVIDERS: ADMIT Allergy & Immunology; ATTEND Allergy & Immunology
PROC: HZ2ZZZZ Detoxification Services for Substance Abuse Treatment (ICD-10-PCS; principal; 2023-03-09)
DX: F11.23 Opioid dependence with withdrawal (principal); F10.230 Alcohol dependence with withdrawal, uncomplicated; F14.20 Cocaine dependence, uncomplicated; F17.210 Nicotine dependence, cigarettes, uncomplicated; F19.24 Other psychoactive substance dependence with psychoactive substance-induced mood disorder; F43.10 Post-traumatic stress disorder, unspecified; F32.A Depression, unspecified; Z62.810 Personal history of physical and sexual abuse in childhood; Z56.0 Unemployment, unspecified; Z59.00 Homelessness unspecified; Z28.310 Unvaccinated for COVID-19; Z28.9 Immunization not carried out for unspecified reason
CPT/HCPCS: 36415; 80053; 82140; 85027; 86780; 93005; 93010; C9803-CS; Q0162; U0003; U0005